=== PATIENT | male | born 1965 | race African-American/Black ===

== ENCOUNTER 2016-05-12 14:29 | Inpatient (IN) | payer OTHER ==
[2016-05-12] MEDS ORDERED: P-EPHED 60MG/TRIPROLIDI 2.5MG TABLET PO PRN (16:27)
[2016-05-12] MEDS ORDERED: ACETAMINOPHEN 325 MG TABLET (FP) PO PRN (16:27)
[2016-05-12] MEDS ORDERED: hydrOXYzine PAMOATE 50 MG CAPSULE (FP) PO PRN (16:27)
[2016-05-12] MEDS ORDERED: NICOTINE 14 MG/24 HOURS TOPICAL PATCH TD PRN (16:27)
[2016-05-12] MEDS ORDERED: MAGNESIUM CITRATE 300 ML BOTTLE PO PRN (16:27)
[2016-05-12] MEDS ORDERED: NICOTINE POLACRILEX 2 MG GUM BUC PRN (16:27)
[2016-05-12] MEDS ORDERED: MAG HYDROX/AL HYDROX/SIMETH 30 ML UNIT-DOSE CUP PO PRN (16:27)
[2016-05-12] MEDS ORDERED: MENTHOL/PHENOL 1 EACH UD MM PRN (16:27)
[2016-05-12] MEDS ORDERED: IBUPROFEN 400 MG TABLET (FP) PO PRN (16:27)
[2016-05-12] MEDS ORDERED: MAGNESIUM HYDROX 2400MG/30ML ORAL SUSPENSION 30 ML CUP PO PRN (16:27)
[2016-05-12] MEDS ORDERED: LOPERAMIDE HCL 2 MG CAPSULE PO PRN (16:27)
[2016-05-12] MEDS ORDERED: guaiFENesin/D-METHORPHAN HB 10 ML UNIT-DOSE CUPS PO PRN (16:27)
[2016-05-12] MEDS ORDERED: diphenhydrAMINE HCL 50 MG CAPSULE PO PRN (16:27)
--- NOTE | 2016-05-12 16:27 | HP ---
[facility] Rehab Assess/Revision - Admission History Admitted to Rehab from: [facility] Date of Admission to Rehab: 05/12/16 - Vital signs Vital Signs: Vital Signs Period Temp Pulse Resp BP Sys/Hernandez Pulse Ox Last 24 Hr 97.8 F-100 F 83 20 109/68 - Findings Detox History & Physical reviewed: Yes Concur with findings: Yes Comments/Additional Findings: TRANSFERRED FROM DETOX TO REHAB ADMISSION PER PROTOCOL
[2016-05-12] MEDS: THIAMINE HCL 100 MG TABLET (FP) PO SCH (21:52)
[2016-05-13] MEDS: PRENATAL VITAMINS W/ FOLIC ACID TABLET (FP) PO SCH (10:38)
--- NOTE | 2016-05-13 12:08 | HP ---
Psychiatrist Admission - Data Date of interview: 05/13/16 Admission source: 6N Identifying data: This is the second 5N inpatient rehabilitation admission for this 49 year old single black male with 24 year old son, who is unemployed and currently homeless. Medical History: hx of left foot fx, 2009, obesity, smokes cigarettes 12 a day. Psychiatric History: Patient denies history of psychiatric treatment. Physical/Sexual Abuse/Trauma History: Patient denies history of sexual, physical and verbal abuse. Vital Signs: Vital Signs - 24 hr 05/12/16 05/12/16 05/13/16 14:48 15:42 00:30 Temperature 100 F H 97.8 F Pulse Rate 83 Respiratory 20 18 Rate Blood Pressure 109/68 05/13/16 05/13/16 03:30 07:01 Temperature 97.5 F L Pulse Rate 60 Respiratory 18 18 Rate Blood Pressure 106/74 Allergies/Adverse Reactions: Allergies Allergy/AdvReac Type Severity Reaction Status Date / Time No Known Allergies Allergy Verified 05/12/16 15:11 Concur with the findings of this exam: Yes - Substance Abuse/Tx History Hx Alcohol Use: Yes (daily 1 pint of rum,bacardi) Hx Substance Use: Yes Substance Use Type: Cocaine ($100 daily.) Hx Substance Use Treatment: Yes - Admission Criteria Previous failed treatment: Yes Poor recovery environment: Yes Comorbidities: Yes Lacks judgement: Yes Mental Status Exam - Mental Status Exam Alert and Oriented to: Time, Place, Person Cognitive Function: Good Patient Appearance: Well Groomed Mood: Hopeful Affect: Appropriate, Mood Congruent Patient Behavior: Appropriate, Cooperative Speech Pattern: Appropriate Voice Loudness: Normal Thought Process: Intact, Goal Oriented Thought Disorder: Not Present Hallucinations: Denies Suicidal Ideation: Denies Homicidal Ideation: Denies Insight/Judgement: Fair Sleep: Fair Appetite: Good Muscle strength/Tone: Normal Gait/Station: Normal Psychiatric Findings - Problem List ([place] 1, 2,3) (1) Alcohol dependence Current Visit: No Status: Chronic (2) Cannabis abuse Current Visit: No Status: Chronic (3) Cocaine dependence Current Visit: No Status: Chronic (4) Nicotine dependence Current Visit: No Status: Chronic
[2016-05-13] MEDS: THIAMINE HCL 100 MG TABLET (FP) PO SCH ×2 (22:10→23:01)
[2016-05-14] MEDS: PRENATAL VITAMINS W/ FOLIC ACID TABLET (FP) PO SCH (09:57)
[2016-05-14] MEDS: THIAMINE HCL 100 MG TABLET (FP) PO SCH (22:37)
[2016-05-15] MEDS: PRENATAL VITAMINS W/ FOLIC ACID TABLET (FP) PO SCH (10:17)
[2016-05-15] MEDS: THIAMINE HCL 100 MG TABLET (FP) PO SCH (21:50)
[2016-05-16] MEDS: PRENATAL VITAMINS W/ FOLIC ACID TABLET (FP) PO SCH (10:14)
[2016-05-16] MEDS: THIAMINE HCL 100 MG TABLET (FP) PO SCH (21:43)
[2016-05-17] MEDS: PRENATAL VITAMINS W/ FOLIC ACID TABLET (FP) PO SCH (10:23)
[2016-05-17] MEDS: THIAMINE HCL 100 MG TABLET (FP) PO SCH (22:10)
[2016-05-18] MEDS: PRENATAL VITAMINS W/ FOLIC ACID TABLET (FP) PO SCH (10:31)
[2016-05-18] MEDS: THIAMINE HCL 100 MG TABLET (FP) PO SCH (21:43)
[2016-05-19] MEDS: PRENATAL VITAMINS W/ FOLIC ACID TABLET (FP) PO SCH (10:19)
[2016-05-19] MEDS: THIAMINE HCL 100 MG TABLET (FP) PO SCH (21:53)
[2016-05-20] MEDS: PRENATAL VITAMINS W/ FOLIC ACID TABLET (FP) PO SCH (12:04)
[2016-05-20] MEDS: THIAMINE HCL 100 MG TABLET (FP) PO SCH (21:50)
[2016-05-21] MEDS: PRENATAL VITAMINS W/ FOLIC ACID TABLET (FP) PO SCH (10:41)
[2016-05-21] MEDS: THIAMINE HCL 100 MG TABLET (FP) PO SCH (21:45)
[2016-05-22] MEDS: PRENATAL VITAMINS W/ FOLIC ACID TABLET (FP) PO SCH (11:28)
[2016-05-22] MEDS: THIAMINE HCL 100 MG TABLET (FP) PO SCH (22:42)
[2016-05-23] MEDS: PRENATAL VITAMINS W/ FOLIC ACID TABLET (FP) PO SCH (10:14)
[2016-05-23] MEDS: THIAMINE HCL 100 MG TABLET (FP) PO SCH (22:16)
[2016-05-24] MEDS: PRENATAL VITAMINS W/ FOLIC ACID TABLET (FP) PO SCH (10:31)
[2016-05-24] MEDS: THIAMINE HCL 100 MG TABLET (FP) PO SCH (21:43)
[2016-05-25] MEDS: PRENATAL VITAMINS W/ FOLIC ACID TABLET (FP) PO SCH (11:00)
[2016-05-25] MEDS: THIAMINE HCL 100 MG TABLET (FP) PO SCH (21:59)
[2016-05-26] MEDS: PRENATAL VITAMINS W/ FOLIC ACID TABLET (FP) PO SCH (10:07)
[2016-05-26] MEDS: THIAMINE HCL 100 MG TABLET (FP) PO SCH (21:42)
[2016-05-27] MEDS: PRENATAL VITAMINS W/ FOLIC ACID TABLET (FP) PO SCH (11:00)
[2016-05-27] MEDS: THIAMINE HCL 100 MG TABLET (FP) PO SCH (22:07)
[2016-05-28] MEDS: PRENATAL VITAMINS W/ FOLIC ACID TABLET (FP) PO SCH (10:25)
[2016-05-28] MEDS: THIAMINE HCL 100 MG TABLET (FP) PO SCH (21:37)
[2016-05-29] MEDS: PRENATAL VITAMINS W/ FOLIC ACID TABLET (FP) PO SCH (10:04)
[2016-05-29] MEDS: THIAMINE HCL 100 MG TABLET (FP) PO SCH (21:47)
[2016-05-30] MEDS: PRENATAL VITAMINS W/ FOLIC ACID TABLET (FP) PO SCH (09:38)
[2016-05-30] MEDS: THIAMINE HCL 100 MG TABLET (FP) PO SCH (21:52)
[2016-05-31 06:42] VITALS: PULSE 69
[2016-05-31] MEDS: PRENATAL VITAMINS W/ FOLIC ACID TABLET (FP) PO SCH (09:57)
[2016-05-31] MEDS: THIAMINE HCL 100 MG TABLET (FP) PO SCH (22:13)
[2016-06-01 07:02] VITALS: BP 112/64; TEMP 97.5
--- NOTE | 2016-06-01 07:59 | PN ---
Psychiatric Progress Note Vital Signs: Vital Signs Period Temp Pulse Resp BP Sys/Hernandez Pulse Ox Last 24 Hr 97.5 F 69 18-20 112/64 Date of Session: 06/01/16 Chief Complaint:: discharge visit HPI: obesity. ROS: Patient has addressed alcohol, cocaine, nicotine dependence, cannabis abuse. Current Medications: Active Medications Generic Name Dose Route Start Last Admin Trade Name Freq PRN Reason Stop Dose Admin Acetaminophen 650 mg 05/12/16 16:27 Tylenol - PO Q4H PRN FEVER OR PAIN Al Hydroxide/Mg Hydroxide 30 ml 05/12/16 16:27 Mylanta Oral Suspension - PO Q6H PRN DYSPEPSIA Diphenhydramine HCl 50 mg 05/12/16 16:27 Benadryl - PO HSMR1 PRN FOR ITCHING Eucalyptus/Menthol/Phenol/Sorbitol 1 each 05/12/16 16:27 05/25/16 22:12 Cepastat Lozenge - MM 1 each Q4H PRN Administration SORE THROAT Guaifenesin 10 ml 05/12/16 16:27 Robitussin Dm - PO Q6H PRN COUGH Hydroxyzine Pamoate 50 mg 05/12/16 16:27 Vistaril - PO Q4H PRN AGITATION Ibuprofen 400 mg 05/12/16 16:27 Motrin - PO Q6H PRN PAIN Loperamide HCl 4 mg 05/12/16 16:27 Imodium - PO Q6H PRN DIARRHEA Magnesium Hydroxide 30 ml 05/12/16 16:27 Milk Of Magnesia - PO DAILY PRN CONSTIPATION Nicotine 14 mg 05/12/16 16:27 Nicoderm Patch - TD DAILY PRN WITHDRAWAL(CONT SUBST) Nicotine Polacrilex 2 mg 05/12/16 16:27 Nicorette Gum - BUC Q2H PRN NICOTINE REPLACEMENT RX Multivit/Folic Acid/Iron 1 tab 05/13/16 10:00 05/31/16 09:57 Vitamins (Sjr) - PO Not Given DAILY JOSIE Pseudoephedrine/Triprolidine 1 combo 05/12/16 16:27 Actifed - PO TID PRN NASAL CONGESTION Thiamine HCl 100 mg 05/12/16 22:00 05/31/16 22:13 Vitamin B1 - PO Not Given HS JOSIE Current Side Effect: No Lab tests ordered: No Lab tests reviewed: Yes Provider note:: Patient has complted today his treatment and met his goals, shruthil continue to address his issues at the nxt level of care.Patient identified positive affirmations about himself and identifying the consequences of his self abuse, he undersands the negative impact of addiction over major life jac. Patient was encouraged to utilize all supports available to prevent relapses. He is stable for discharge today. Total face to face time:: 20 Mental Status Exam - Mental Status Exam Alert and Oriented to: Time, Place, Person Cognitive Function: Grossly Intact Patient Appearance: Well Groomed Mood: Hopeful Affect: Appropriate, Mood Congruent Patient Behavior: Appropriate, Cooperative Speech Pattern: Clear, Appropriate Voice Loudness: Normal Thought Process: Intact, Goal Oriented Thought Disorder: Not Present Hallucinations: None, Denies Suicidal Ideation: None, Denies Homicidal Ideation: None Insight/Judgement: Fair Sleep: Fair Appetite: Fair Muscle strength/Tone: Normal, Moderate Hypotonicity Psychiatric Treatment Plan - Problem List (1) Alcohol dependence Current Visit: No (2) Cannabis abuse Current Visit: No (3) Cocaine dependence Current Visit: No (4) Nicotine dependence Current Visit: No
== END 2016-06-01 07:40 | disposition home or self-care (01) | DRG 772 ==
LOC: YASAS 14:29 → Y5N 14:30
PROVIDERS: ADMIT Psychiatry & Neurology Psychiatry; ATTEND Psychiatry & Neurology Psychiatry
PROC: HZ42ZZZ Group Counseling for Substance Abuse Treatment, Cognitive-Behavioral (ICD-10-PCS; principal; 2016-05-12)
DX: F10.20 Alcohol dependence, uncomplicated (principal); F14.20 Cocaine dependence, uncomplicated; F12.10 Cannabis abuse, uncomplicated; F17.210 Nicotine dependence, cigarettes, uncomplicated; E66.9 Obesity, unspecified; Z68.39 Body mass index [BMI] 39.0-39.9, adult; Z59.0 Homelessness

== ENCOUNTER 2016-07-06 12:39 | Inpatient (IN) | payer OTHER ==
[2016-07-06 13:51] VITALS: BMI 41.8
--- NOTE | 2016-07-06 15:27 | HP ---
CIWA Score - CIWA Score Nausea/Vomitin Muscle Tremors: 3 Anxiety: 3 Agitation: 3 Paroxysmal Sweats: 2 Orientation: 0-Oriented Tacttile Disturbances: 2-Mild Itch/Numbness/Burn Auditory Disturbances: 2-Mild Harshness/Frighten Visual Disturbances: 2-Mild Sensitivity Headache: 2-Mild CIWA-Ar Total Score: 22 Admission ROS BHS - HPI Chief Complaint: i need help to stop drinking alcohol Allergies/Adverse Reactions: Allergies Allergy/AdvReac Type Severity Reaction Status Date / Time No Known Allergies Allergy Verified 07/06/16 15:11 History of Present Illness: this 51 years old male with alcohol dependence,withdrawal symptom,last detox [facility] 04/29/16 to 05/02/16 multiple admissions to detox and rehab syncope nicotine dependence longest period of sobriety 22 months - Ebola screening Have you traveled outside of the country in the last 21 days: No Have you had contact with anyone from an Ebola affected area: No Have you been sick,other than usual withdrawal symptoms: No Do you have a fever: No - Review of Systems Constitutional: Loss of Appetite, Malaise, Night Sweats, Changes in sleep, Weakness EENT: reports: Nose Congestion Respiratory: reports: No Symptoms reported Cardiac: reports: No Symptoms Reported GI: reports: Nausea, Vomiting, Abdominal cramping : reports: No Symptoms Reported Integumentary: reports: Dryness Neuro: reports: Headache, Tremors Endocrine: reports: No Symptoms Reported Hematology: reports: No Symptoms Reported Psychiatric: reports: Anxious Other Systems: Reviewed and Negative Patient History - Patient Medical History Hx Anemia: No Hx Asthma: No Hx Chronic Obstructive Pulmonary Disease (COPD): No Hx Cancer: No Hx Cardiac Disorders: No Hx Congestive Heart Failure: No Hx Hypertension: No Hx Hypercholesterolemia: No Hx Pacemaker: No HX Cerebrovascular Accident: No Hx Seizures: No Hx Dementia: No Hx Diabetes: No Hx Gastrointestinal Disorders: No Hx Liver Disease: No Hx Genitourinary Disorders: No Hx Sexually Transmitted Disorders: No Hx Renal Disease (ESRD): No Hx Thyroid Disease: No Hx Human Immunodeficiency Virus (HIV): No (last 02/12 negative) Hx Hepatitis C: No Hx Depression: No Hx Suicide Attempt: No Hx Bipolar Disorder: No Hx Schizophrenia: No Other Medical History: no suicidal,no homicidal - Patient Surgical History Past Surgical History: No Hx Neurologic Surgery: No Hx Cataract Extraction: No Hx Cardiac Surgery: No Hx Lung Surgery: No Hx Breast Surgery: No Hx Breast Biopsy: No Hx Abdominal Surgery: No Hx Appendectomy: No Hx Cholecystectomy: No Hx Genitourinary Surgery: No Hx Section: No Hx Orthopedic Surgery: No Anesthesia Reaction: No - PPD History Previous Implant?: Yes Documented Results: Negative w/proof Date: 05/10/16 Results: 0 mm PPD to be Administered?: No - Smoking Cessation Smoking history: Current every day smoker Have you smoked in the past 12 months: Yes Aproximately how many cigarettes per day: 12 Cigars Per Day: 0 Hx Chewing Tobacco Use: No Initiated information on smoking cessation: Yes 'Breaking Loose' booklet given: 07/06/16 - Substance & Tx. History Hx Alcohol Use: Yes Hx Substance Use: Yes Substance Use Type: Alcohol, Cocaine Hx Substance Use Treatment: Yes ([facility] 04/29/16 to 05/02/16) - Substances Abused Alcohol Route: Oral Frequency: Daily Amount used: 7-8 12 oz cans beer Age of first use: 17 Date of Last Use: 07/06/16 Crack Route: Smoking Frequency: Daily Amount used: 2-3 grams Age of first use: 28 Date of Last Use: 07/04/16 Family Disease History - Family Disease History Family Disease History: Other: Father (alcoholism- ) Admission Physical Exam S - Vital Signs Vital Signs: Vital Signs - 24 hr 07/06/16 13:47 Temperature 97.5 F L Pulse Rate 88 Respiratory 18 Rate Blood Pressure 114/69 - Physical General Appearance: Yes: Moderate Distress, Tremorous, Irritable, Anxious HEENTM: Yes: Nasal Congestion Respiratory: Yes: Lungs Clear Neck: Yes: Within Normal Limits Breast: Yes: Within Normal Limits Cardiology: Yes: Within Normal Limits, Regular Rhythm, Regular Rate, S1, S2 Abdominal: Yes: Normal Bowel Sounds, Non Tender, Flat, Soft Genitourinary: Yes: Within Normal Limits Back: Yes: Muscle Spasm Musculoskeletal: Yes: Back pain, Muscle Pain Extremities: Yes: Tremors Neurological: Yes: staff editor II-XII NML intact, Alert, Motor Strength 5/5 Integumentary: Yes: Dry Lymphatic: Yes: Within Normal Limits - Diagnostic (1) Alcohol dependence with uncomplicated withdrawal Current Visit: No Status: Chronic (2) Nicotine dependence Current Visit: No Status: Chronic (3) Obesity Current Visit: No Status: Chronic Qualifiers: Obesity type: due to excess calories (4) Sleep apnea Current Visit: No Status: Chronic Qualifiers: Sleep apnea type: other type Qualified Code(s): G47.39 - Other sleep apnea (5) Syncope Current Visit: Yes Status: Acute Cleared for Admission [facility] - Detox or Rehab [facility] Level of Care: Medically Managed Detox Regimen/Protocol: Librium S Breath Alcohol Content Breath Alcohol Content: 0.027 Urine Drug Screen - Results Drug Screen Negative: Yes
[2016-07-06] MEDS ORDERED: MAG HYDROX/AL HYDROX/SIMETH 30 ML UNIT-DOSE CUP PO PRN (15:34)
[2016-07-06] MEDS ORDERED: MAGNESIUM CITRATE 300 ML BOTTLE PO PRN (15:34)
[2016-07-06] MEDS ORDERED: MAGNESIUM HYDROX 2400MG/30ML ORAL SUSPENSION 30 ML CUP PO PRN (15:34)
[2016-07-06] MEDS ORDERED: chlordiazePOXIDE HCL 25 MG CAPSULE PO PRN (15:34)
[2016-07-06] MEDS ORDERED: IBUPROFEN 400 MG TABLET (FP) PO PRN (15:34)
[2016-07-06] MEDS ORDERED: P-EPHED 60MG/TRIPROLIDI 2.5MG TABLET PO PRN (15:34)
[2016-07-06] MEDS ORDERED: hydrOXYzine PAMOATE 50 MG CAPSULE (FP) PO PRN (15:34)
[2016-07-06] MEDS ORDERED: guaiFENesin/D-METHORPHAN HB 10 ML UNIT-DOSE CUPS PO PRN (15:34)
[2016-07-06] MEDS ORDERED: ACETAMINOPHEN 325 MG TABLET (FP) PO PRN (15:34)
[2016-07-06] MEDS ORDERED: MENTHOL/PHENOL 1 EACH UD MM PRN (15:34)
[2016-07-06] MEDS ORDERED: LOPERAMIDE HCL 2 MG CAPSULE PO PRN (15:34)
[2016-07-06] MEDS ORDERED: chlordiazePOXIDE HCL 25 MG CAPSULE PO ONE (15:43)
[2016-07-06] MEDS: chlordiazePOXIDE HCL 25 MG CAPSULE PO SCH ×2 (17:37→22:27)
[2016-07-06 20:20] LABS: URINE APPEARANCE CLEAR; URINE BILIRUBIN NEGATIVE (NEGATIVE); URINE BLOOD NEGATIVE (NEGATIVE); URINE COLOR YELLOW; URINE GLUCOSE (UA) NEGATIVE (NEGATIVE); URINE KETONE NEGATIVE (NEGATIVE); URINE NITRITE NEGATIVE (NEGATIVE); URINE PROTEIN NEGATIVE (NEGATIVE); URINE UROBILINOGEN NEGATIVE E.U./dl (0.2-1.0)
[2016-07-06 20:23] LABS: URINE LEUK ESTERASE TRACE (NEGATIVE)
[2016-07-06 20:34] LABS: URINE MUCUS RARE; URINE RBC 1 /hpf (0-3); URINE WBC 8 /hpf (3-5)
[2016-07-06] MEDS ORDERED: diphenhydrAMINE HCL 50 MG CAPSULE PO PRN (22:00)
[2016-07-06] MEDS: THIAMINE HCL 100 MG TABLET (FP) PO SCH (22:27)
[2016-07-07] MEDS: chlordiazePOXIDE HCL 25 MG CAPSULE PO SCH ×4 (05:34→22:36)
[2016-07-07 10:32] LABS: MCH 29.2 pg (25.7-33.7); MCHC 32.7 g/dl (32.0-35.9); MEAN CELL VOLUME 89.1 fl (80-96); MEAN PLT VOLUME 11.3 fl (7.5-11.1); PLATELET COUNT 172 K/MM3 (134-434); RDW 14.4 % (11.9-15.9); WHITE BLOOD COUNT 8.6 K/mm3 (4.0-10.0)
[2016-07-07] MEDS: PRENATAL VITAMINS W/ FOLIC ACID TABLET (FP) PO SCH (10:33)
[2016-07-07 10:59] LABS: ALBUMIN 3.7 g/dl (3.4-5.0); ALK PHOS 51 U/L (45-117); ANION GAP 11 (8-16); BILIRUBIN,TOTAL 0.3 mg/dL (0.2-1.0); CALCIUM 9.2 mg/dL (8.5-10.1); CO2 23 mmol/L (21-32); CREATININE 0.7 mg/dL (0.7-1.3); GLUCOSE,RANDOM 100 mg/dL (74-106); SGOT/AST 22 U/L (15-37); SGPT/ALT 66 U/L (12-78); TOT PROT 7.1 g/dl (6.4-8.2)
--- NOTE | 2016-07-07 13:33 | EKG ---
Test Reason : Blood Pressure : / mmHG Vent. Rate : 067 BPM Atrial Rate : 067 BPM P-R Int : 148 ms QRS Dur : 084 ms QT Int : 428 ms P-R-T Axes : 067 052 049 degrees QTc Int : 452 ms NORMAL SINUS RHYTHM NORMAL ECG NO PREVIOUS ECGS AVAILABLE Confirmed by ROHITH CAMPOS, MARTA ([id number]) on 07/07/2016 1:33:50 PM Referred By: Confirmed By:MARTA NEWBERRY MD
--- NOTE | 2016-07-07 17:57 | PN ---
S CIWA - CIWA Score Nausea/Vomitin-Mild Nausea/No Vomiting Muscle Tremors: 4-Moderate,w/Arms Extend Anxiety: 4-Mod. Anxious/Guarded Agitation: 3 Paroxysmal Sweats: 3 Orientation: 0-Oriented Tacttile Disturbances: 0-None Auditory Disturbances: 0-None Visual Disturbances: 0-None Headache: 0-None Present CIWA-Ar Total Score: 15 BHS Progress Note (SOAP) Subjective: SWEATING,ANXIETY,TREMORS,INTERRUPTED SLEEP,RESTLESS. Objective: 07/07/16 17:56 Vital Signs - 8 hr 07/07/16 07/07/16 13:23 17:32 Temperature 97.2 F L 98.1 F Pulse Rate 82 66 Respiratory 20 18 Rate Blood Pressure 141/82 91/61 Laboratory Tests 07/06/16 07/07/16 07/07/16 19:45 06:00 06:00 WBC 8.6 D RBC 4.42 Hgb 12.9 Hct 39.4 MCV 89.1 MCHC 32.7 RDW 14.4 Plt Count 172 MPV 11.3 H Sodium 140 Potassium 4.2 Chloride 106 Carbon Dioxide 23 Anion Gap 11 BUN 12 D Creatinine 0.7 D Creat Clearance w eGFR > 60 Random Glucose 100 Calcium 9.2 Total Bilirubin 0.3 D AST 22 D ALT 66 D Alkaline Phosphatase 51 Total Protein 7.1 Albumin 3.7 Urine Color Yellow Urine Appearance Clear Urine pH 6.0 Ur Specific [place] 1.018 Urine Protein Negative Urine Glucose (UA) Negative Urine Ketones Negative Urine Blood Negative Urine Nitrite Negative Urine Bilirubin Negative Urine Urobilinogen Negative Ur Leukocyte Esterase Trace H D Urine RBC 1 Urine WBC 8 Ur Epithelial Cells Rare Urine Mucus Rare RPR Titer 07/07/16 06:00 WBC RBC Hgb Hct MCV MCHC RDW Plt Count MPV Sodium Potassium Chloride Carbon Dioxide Anion Gap BUN Creatinine Creat Clearance w eGFR Random Glucose Calcium Total Bilirubin AST ALT Alkaline Phosphatase Total Protein Albumin Urine Color Urine Appearance Urine pH Ur Specific [place] Urine Protein Urine Glucose (UA) Urine Ketones Urine Blood Urine Nitrite Urine Bilirubin Urine Urobilinogen Ur Leukocyte Esterase Urine RBC Urine WBC Ur Epithelial Cells Urine Mucus RPR Titer Nonreactive LABS NOTED Assessment: 07/07/16 17:56 WITHDRAWAL SX. Plan: CONTINUE DETOX
[2016-07-07] MEDS: THIAMINE HCL 100 MG TABLET (FP) PO SCH (22:37)
[2016-07-08] MEDS: chlordiazePOXIDE HCL 25 MG CAPSULE PO SCH ×2 (05:40→10:34)
[2016-07-08] MEDS: PRENATAL VITAMINS W/ FOLIC ACID TABLET (FP) PO SCH (10:34)
--- NOTE | 2016-07-08 13:33 | PN ---
S CIWA - CIWA Score Nausea/Vomitin-No Nausea/No Vomiting Muscle Tremors: 3 Anxiety: 3 Agitation: 4-Moderately Restless Paroxysmal Sweats: 3 Orientation: 0-Oriented Tacttile Disturbances: 1-Very Mild Itch/Numbness Auditory Disturbances: 0-None Visual Disturbances: 0-None Headache: 0-None Present CIWA-Ar Total Score: 14 BHS Progress Note (SOAP) Subjective: SWEATING,INTERRUPTED SLEEP,ANXIETY,TREMORS,RESTLESS Objective: 07/08/16 13:32 Vital Signs - 8 hr 07/08/16 07/08/16 07:01 10:11 Temperature 97.8 F 96.2 F L Pulse Rate 69 82 Respiratory 18 18 Rate Blood Pressure 119/84 115/82 Laboratory Tests 07/06/16 07/07/16 07/07/16 19:45 06:00 06:00 WBC 8.6 D RBC 4.42 Hgb 12.9 Hct 39.4 MCV 89.1 MCHC 32.7 RDW 14.4 Plt Count 172 MPV 11.3 H Sodium 140 Potassium 4.2 Chloride 106 Carbon Dioxide 23 Anion Gap 11 BUN 12 D Creatinine 0.7 D Creat Clearance w eGFR > 60 Random Glucose 100 Calcium 9.2 Total Bilirubin 0.3 D AST 22 D ALT 66 D Alkaline Phosphatase 51 Total Protein 7.1 Albumin 3.7 Urine Color Yellow Urine Appearance Clear Urine pH 6.0 Ur Specific [place] 1.018 Urine Protein Negative Urine Glucose (UA) Negative Urine Ketones Negative Urine Blood Negative Urine Nitrite Negative Urine Bilirubin Negative Urine Urobilinogen Negative Ur Leukocyte Esterase Trace H D Urine RBC 1 Urine WBC 8 Ur Epithelial Cells Rare Urine Mucus Rare RPR Titer 07/07/16 06:00 WBC RBC Hgb Hct MCV MCHC RDW Plt Count MPV Sodium Potassium Chloride Carbon Dioxide Anion Gap BUN Creatinine Creat Clearance w eGFR Random Glucose Calcium Total Bilirubin AST ALT Alkaline Phosphatase Total Protein Albumin Urine Color Urine Appearance Urine pH Ur Specific [place] Urine Protein Urine Glucose (UA) Urine Ketones Urine Blood Urine Nitrite Urine Bilirubin Urine Urobilinogen Ur Leukocyte Esterase Urine RBC Urine WBC Ur Epithelial Cells Urine Mucus RPR Titer Nonreactive LABS NOTED Assessment: 07/08/16 13:32 WITHDRAWAL SX. Plan: CONTINUE DETOX
[2016-07-08] MEDS: chlordiazePOXIDE 5 MG CAPSULE PO SCH ×2 (18:18→22:27)
[2016-07-08] MEDS: THIAMINE HCL 100 MG TABLET (FP) PO SCH (22:27)
[2016-07-09] MEDS: chlordiazePOXIDE 5 MG CAPSULE PO SCH ×2 (05:23→10:15)
[2016-07-09] MEDS: PRENATAL VITAMINS W/ FOLIC ACID TABLET (FP) PO SCH (10:15)
--- NOTE | 2016-07-09 10:41 | PN ---
BHS Progress Note (SOAP) Subjective: Sweating,interrupted sleep,restless Objective: 07/09/16 10:39 Vital Signs - 8 hr 07/09/16 07/09/16 07/09/16 03:30 06:25 10:08 Temperature 97.7 F 96.8 F L Pulse Rate 82 101 H Respiratory 18 18 18 Rate Blood Pressure 119/86 136/82 Laboratory Tests 07/06/16 07/07/16 07/07/16 19:45 06:00 06:00 WBC 8.6 D RBC 4.42 Hgb 12.9 Hct 39.4 MCV 89.1 MCHC 32.7 RDW 14.4 Plt Count 172 MPV 11.3 H Sodium 140 Potassium 4.2 Chloride 106 Carbon Dioxide 23 Anion Gap 11 BUN 12 D Creatinine 0.7 D Creat Clearance w eGFR > 60 Random Glucose 100 Calcium 9.2 Total Bilirubin 0.3 D AST 22 D ALT 66 D Alkaline Phosphatase 51 Total Protein 7.1 Albumin 3.7 Urine Color Yellow Urine Appearance Clear Urine pH 6.0 Ur Specific [place] 1.018 Urine Protein Negative Urine Glucose (UA) Negative Urine Ketones Negative Urine Blood Negative Urine Nitrite Negative Urine Bilirubin Negative Urine Urobilinogen Negative Ur Leukocyte Esterase Trace H D Urine RBC 1 Urine WBC 8 Ur Epithelial Cells Rare Urine Mucus Rare RPR Titer 07/07/16 06:00 WBC RBC Hgb Hct MCV MCHC RDW Plt Count MPV Sodium Potassium Chloride Carbon Dioxide Anion Gap BUN Creatinine Creat Clearance w eGFR Random Glucose Calcium Total Bilirubin AST ALT Alkaline Phosphatase Total Protein Albumin Urine Color Urine Appearance Urine pH Ur Specific [place] Urine Protein Urine Glucose (UA) Urine Ketones Urine Blood Urine Nitrite Urine Bilirubin Urine Urobilinogen Ur Leukocyte Esterase Urine RBC Urine WBC Ur Epithelial Cells Urine Mucus RPR Titer Nonreactive labs noted Assessment: 07/09/16 10:40 withdrawal sx. Plan: continue detox
[2016-07-09] MEDS: chlordiazePOXIDE HCL 10 MG CAPSULE PO SCH ×2 (17:38→22:26)
[2016-07-09] MEDS: THIAMINE HCL 100 MG TABLET (FP) PO SCH (22:26)
[2016-07-10] MEDS: chlordiazePOXIDE HCL 10 MG CAPSULE PO SCH ×2 (06:07→10:39)
[2016-07-10 09:51] VITALS: BP 123/83; PULSE 102; TEMP 97.7
--- NOTE | 2016-07-10 10:23 | DS ---
[facility] Detox Discharge Summary Admission Date: 07/06/16 Discharge Date: 07/10/16 - History Present History: Alcohol Dependence Pertinent Past History: Morbid Obesity Sleep Apnea - Physical Exam Results Vital Signs: Vital Signs Temperature 97.7 F 07/10/16 09:50 Pulse Rate 102 H 07/10/16 09:50 Respiratory Rate 20 07/10/16 09:50 Blood Pressure 123/83 07/10/16 09:50 O2 Sat by Pulse Oximetry (%) Laboratory Last Values WBC 8.6 K/mm3 (4.0-10.0) D 07/07/16 06:00 RBC 4.42 M/mm3 (4.00-5.60) 07/07/16 06:00 Hgb 12.9 GM/dL (11.7-16.9) 07/07/16 06:00 Hct 39.4 % (35.4-49) 07/07/16 06:00 MCV 89.1 fl (80-96) 07/07/16 06:00 MCHC 32.7 g/dl (32.0-35.9) 07/07/16 06:00 RDW 14.4 % (11.9-15.9) 07/07/16 06:00 Plt Count 172 K/MM3 (134-434) 07/07/16 06:00 MPV 11.3 fl (7.5-11.1) H 07/07/16 06:00 Sodium 140 mmol/L (136-145) 07/07/16 06:00 Potassium 4.2 mmol/L (3.5-5.1) 07/07/16 06:00 Chloride 106 mmol/L (98-107) 07/07/16 06:00 Carbon Dioxide 23 mmol/L (21-32) 07/07/16 06:00 Anion Gap 11 (8-16) 07/07/16 06:00 BUN 12 mg/dL (7-18) D 07/07/16 06:00 Creatinine 0.7 mg/dL (0.7-1.3) D 07/07/16 06:00 Creat Clearance w eGFR > 60 (>60) 07/07/16 06:00 Random Glucose 100 mg/dL (74-106) 07/07/16 06:00 Calcium 9.2 mg/dL (8.5-10.1) 07/07/16 06:00 Total Bilirubin 0.3 mg/dL (0.2-1.0) D 07/07/16 06:00 AST 22 U/L (15-37) D 07/07/16 06:00 ALT 66 U/L (12-78) D 07/07/16 06:00 Alkaline Phosphatase 51 U/L (45-117) 07/07/16 06:00 Total Protein 7.1 g/dl (6.4-8.2) 07/07/16 06:00 Albumin 3.7 g/dl (3.4-5.0) 07/07/16 06:00 Urine Color Yellow 07/06/16 19:45 Urine Appearance Clear 07/06/16 19:45 Urine pH 6.0 (5.0-8.0) 07/06/16 19:45 Ur Specific [place] 1.018 (1.001-1.035) 07/06/16 19:45 Urine Protein Negative (NEGATIVE) 07/06/16 19:45 Urine Glucose (UA) Negative (NEGATIVE) 07/06/16 19:45 Urine Ketones Negative (NEGATIVE) 07/06/16 19:45 Urine Blood Negative (NEGATIVE) 07/06/16 19:45 Urine Nitrite Negative (NEGATIVE) 07/06/16 19:45 Urine Bilirubin Negative (NEGATIVE) 07/06/16 19:45 Urine Urobilinogen Negative E.U./dl (0.2-1.0) 07/06/16 19:45 Ur Leukocyte Esterase Trace (NEGATIVE) H D 07/06/16 19:45 Urine RBC 1 /hpf (0-3) 07/06/16 19:45 Urine WBC 8 /hpf (3-5) 07/06/16 19:45 Ur Epithelial Cells Rare /hpf (FEW) 07/06/16 19:45 Urine Mucus Rare 07/06/16 19:45 RPR Titer Nonreactive (NONREACTIVE) 07/07/16 06:00 labs noted Pertinent Admission Physical Exam Findings: Withdrawal Symptoms - Treatment Hospital Course: Detox Protocol Followed, Detoxed Safely, Responded well, Discharged Condition Good - Medication Discharge Medications: Ambulatory Orders NK [No Known Home Medication] 05/03/15 - Diagnosis (1) Alcohol dependence with uncomplicated withdrawal Current Visit: No Status: Chronic (2) Cigarette nicotine dependence Current Visit: No Status: Chronic Qualifiers: Substance use status: uncomplicated Qualified Code(s): F17.210 - Nicotine dependence, cigarettes, uncomplicated (3) Cocaine dependence Current Visit: No Status: Chronic (4) Nicotine dependence Current Visit: No Status: Chronic (5) Sleep apnea Current Visit: No Status: Chronic Qualifiers: Sleep apnea type: other type Qualified Code(s): G47.39 - Other sleep apnea (6) Morbid obesity Current Visit: Yes Status: Chronic - AMA Did Patient Leave Against Medical Advice: No
[2016-07-10] MEDS: PRENATAL VITAMINS W/ FOLIC ACID TABLET (FP) PO SCH (10:39)
== END 2016-07-10 14:24 | disposition other institution (70) | DRG 774 ==
LOC: YASAS 12:39 → Y3N 15:27
PROVIDERS: ADMIT Internal Medicine; ATTEND Internal Medicine
PROC: HZ2ZZZZ Detoxification Services for Substance Abuse Treatment (ICD-10-PCS; principal; 2016-07-10)
DX: F10.230 Alcohol dependence with withdrawal, uncomplicated (principal); F14.20 Cocaine dependence, uncomplicated; F17.210 Nicotine dependence, cigarettes, uncomplicated; G47.39 Other sleep apnea; E66.01 Morbid (severe) obesity due to excess calories; Z68.41 Body mass index [BMI] 40.0-44.9, adult; R55 Syncope and collapse; Z59.0 Homelessness
CPT/HCPCS: 36415; 80053; 81003; 81015; 85027; 86593; 93005; 93010

== ENCOUNTER 2016-07-10 14:35 | Inpatient (IN) | payer OTHER ==
[2016-07-10] MEDS ORDERED: MAG HYDROX/AL HYDROX/SIMETH 30 ML UNIT-DOSE CUP PO PRN (15:48)
[2016-07-10] MEDS ORDERED: MENTHOL/PHENOL 1 EACH UD MM PRN (15:48)
[2016-07-10] MEDS ORDERED: guaiFENesin/D-METHORPHAN HB 10 ML UNIT-DOSE CUPS PO PRN (15:48)
[2016-07-10] MEDS ORDERED: IBUPROFEN 400 MG TABLET (FP) PO PRN (15:48)
[2016-07-10] MEDS ORDERED: ACETAMINOPHEN 325 MG TABLET (FP) PO PRN (15:48)
[2016-07-10] MEDS ORDERED: diphenhydrAMINE HCL 50 MG CAPSULE PO PRN (15:48)
[2016-07-10] MEDS ORDERED: MAGNESIUM CITRATE 300 ML BOTTLE PO PRN (15:48)
[2016-07-10] MEDS ORDERED: P-EPHED 60MG/TRIPROLIDI 2.5MG TABLET PO PRN (15:48)
[2016-07-10] MEDS ORDERED: NICOTINE POLACRILEX 2 MG GUM BUC PRN (15:48)
[2016-07-10] MEDS ORDERED: MAGNESIUM HYDROX 2400MG/30ML ORAL SUSPENSION 30 ML CUP PO PRN (15:48)
[2016-07-10] MEDS ORDERED: LOPERAMIDE HCL 2 MG CAPSULE PO PRN (15:48)
--- NOTE | 2016-07-10 15:49 | HP ---
[facility] Rehab Assess/Revision - Admission History Admitted to Rehab from: [facility] [place] Date of Admission to Rehab: 07/10/16 - Vital signs Vital Signs: Vital Signs Period Temp Pulse Resp BP Sys/Hernandez Pulse Ox Last 24 Hr 97.9 F 100 18 128/74 - Findings Detox History & Physical reviewed: Yes Concur with findings: Yes
[2016-07-10] MEDS: THIAMINE HCL 100 MG TABLET (FP) PO SCH (21:19)
[2016-07-11] MEDS: PRENATAL VITAMINS W/ FOLIC ACID TABLET (FP) PO SCH (10:03)
[2016-07-11] MEDS: THIAMINE HCL 100 MG TABLET (FP) PO SCH (22:49)
[2016-07-12] MEDS: PRENATAL VITAMINS W/ FOLIC ACID TABLET (FP) PO SCH (10:14)
--- NOTE | 2016-07-12 13:22 | HP ---
Psychiatrist Admission - Data Date of interview: 07/12/16 Admission source: 3N Identifying data: This is the third 5N inpatient rehabilitation admission for this 51 year old single black male with 24 year old son, who is unemployed supported by [employer]. Medical History: history of left foot fx, 2010, obesity, smokes cigarettes 12 daily. Psychiatric History: Patient denies history of psychiatric treatment. Physical/Sexual Abuse/Trauma History: Patient denies history of sexual, physical and verbal abuse. Vital Signs: Vital Signs - 24 hr 07/12/16 07/12/16 07/12/16 00:30 03:30 06:50 Temperature 98.5 F Pulse Rate 89 Respiratory 18 18 18 Rate Blood Pressure 108/72 Allergies/Adverse Reactions: Allergies Allergy/AdvReac Type Severity Reaction Status Date / Time No Known Allergies Allergy Verified 07/10/16 14:41 Date of last physical exam: 07/06/16 Concur with the findings of this exam: Yes - Substance Abuse/Tx History Hx Alcohol Use: Yes ( 7-8 12 oz cans beer) Hx Substance Use: No Substance Use Type: Cocaine (2-3 gr daily) Hx Substance Use Treatment: Yes (several [facility] reha/detox) - Admission Criteria Previous failed treatment: Yes Poor recovery environment: Yes Comorbidities: No Lacks judgement: Yes Mental Status Exam - Mental Status Exam Alert and Oriented to: Time, Place, Person Cognitive Function: Grossly Intact Patient Appearance: Well Groomed Mood: Hopeful Affect: Appropriate, Mood Congruent Patient Behavior: Appropriate, Cooperative Speech Pattern: Clear, Appropriate Voice Loudness: Normal Thought Process: Intact, Goal Oriented Thought Disorder: Not Present Hallucinations: Denies Suicidal Ideation: Denies Homicidal Ideation: Denies Insight/Judgement: Fair Sleep: Fair Appetite: Good Muscle strength/Tone: Normal Gait/Station: Normal Psychiatric Findings - Problem List ([place] 1, 2,3) (1) Alcohol dependence Current Visit: No Status: Chronic (2) Cigarette nicotine dependence Current Visit: No Status: Chronic (3) Cocaine dependence Current Visit: No Status: Chronic - Initial Treatment Plan Initial Treatment Plan: will monitor progress as needed.
[2016-07-12] MEDS: THIAMINE HCL 100 MG TABLET (FP) PO SCH (21:54)
[2016-07-13] MEDS: PRENATAL VITAMINS W/ FOLIC ACID TABLET (FP) PO SCH (10:38)
[2016-07-13] MEDS: THIAMINE HCL 100 MG TABLET (FP) PO SCH (21:38)
[2016-07-14] MEDS: PRENATAL VITAMINS W/ FOLIC ACID TABLET (FP) PO SCH (09:58)
--- NOTE | 2016-07-27 15:32 | PN ---
Psychiatric Progress Note Vital Signs: Vital Signs Period Temp Pulse Resp BP Sys/Hernandez Pulse Ox Last 24 Hr 97.6 F 64 18-18 107/67 Date of Session: 07/27/16 Chief Complaint:: discharge visit HPI: Patient is addressing alcohol, cocaine and nicotine dependence. ROS: WNL Current Medications: Active Medications Generic Name Dose Route Start Last Admin Trade Name Freq PRN Reason Stop Dose Admin Acetaminophen 650 mg 07/10/16 15:48 Tylenol - PO Q4H PRN FEVER OR PAIN Al Hydroxide/Mg Hydroxide 30 ml 07/10/16 15:48 Mylanta Oral Suspension - PO Q6H PRN DYSPEPSIA Diphenhydramine HCl 50 mg 07/10/16 15:48 Benadryl - PO HSMR1 PRN FOR ITCHING Eucalyptus/Menthol/Phenol/Sorbitol 1 each 07/10/16 15:48 Cepastat Lozenge - MM Q4H PRN SORE THROAT Guaifenesin 10 ml 07/10/16 15:48 Robitussin Dm - PO Q6H PRN COUGH Ibuprofen 400 mg 07/10/16 15:48 Motrin - PO Q6H PRN PAIN Loperamide HCl 4 mg 07/10/16 15:48 Imodium - PO Q6H PRN DIARRHEA Magnesium Hydroxide 30 ml 07/10/16 15:48 Milk Of Magnesia - PO DAILY PRN CONSTIPATION Nicotine Polacrilex 2 mg 07/10/16 15:48 Nicorette Gum - BUC Q2H PRN NICOTINE REPLACEMENT RX Pseudoephedrine/Triprolidine 1 combo 07/10/16 15:48 Actifed - PO TID PRN NASAL CONGESTION Current Side Effect: No Lab tests ordered: No Lab tests reviewed: Yes Provider note:: Patient will complete this treatment and meet his goals on , will continue to address his issues at [employer] [facility] [employer]. He focuses on importance to continue maintain abstinence and utilization all supports available to prevent relapses, patient was encouraged to use alternative ways to cope with life stressors. Patient is stable for discharge tomorrow. Total face to face time:: 30 Mental Status Exam - Mental Status Exam Alert and Oriented to: Time, Place, Person Cognitive Function: Good Patient Appearance: Well Groomed Mood: Hopeful Affect: Appropriate, Mood Congruent Patient Behavior: Appropriate, Cooperative Speech Pattern: Clear, Appropriate Voice Loudness: Normal Thought Process: Intact, Goal Oriented Thought Disorder: Not Present Hallucinations: Denies Suicidal Ideation: Denies Homicidal Ideation: Denies Insight/Judgement: Good Sleep: Fair Appetite: Fair Muscle strength/Tone: Normal Gait/Station: Normal
[2016-07-28 06:55] VITALS: BP 113/78; PULSE 87; TEMP 98.1
== END 2016-07-28 07:30 | disposition home or self-care (01) | DRG 772 ==
LOC: YASAS 14:35 → Y5N 14:37
PROVIDERS: ADMIT Psychiatry & Neurology Psychiatry; ATTEND Psychiatry & Neurology Psychiatry
PROC: HZ42ZZZ Group Counseling for Substance Abuse Treatment, Cognitive-Behavioral (ICD-10-PCS; principal; 2016-07-28)
DX: F10.20 Alcohol dependence, uncomplicated (principal); F14.20 Cocaine dependence, uncomplicated; F17.210 Nicotine dependence, cigarettes, uncomplicated; Z59.0 Homelessness

== ENCOUNTER 2017-01-14 08:17 | Inpatient (IN) | payer OTHER ==
[2017-01-14 08:48] VITALS: BMI 44.3
--- NOTE | 2017-01-14 11:52 | HP ---
CIWA Score - CIWA Score Nausea/Vomitin-No Nausea/No Vomiting Muscle Tremors: 4-Moderate,w/Arms Extend Anxiety: 3 Agitation: 4-Moderately Restless Paroxysmal Sweats: 3 Orientation: 0-Oriented Tacttile Disturbances: 1-Very Mild Itch/Numbness Auditory Disturbances: 0-None Visual Disturbances: 0-None Headache: 0-None Present CIWA-Ar Total Score: 15 Admission ROS BHS - HPI Chief Complaint: Withdrawal sx. Allergies/Adverse Reactions: Allergies Allergy/AdvReac Type Severity Reaction Status Date / Time No Known Allergies Allergy Verified 01/14/17 10:24 History of Present Illness: 51 y/o man with a long hx. of alcoholism is admitted for detox. pt. has been in previous detox, denies significant sobriety. Exam Limitations: No Limitations - Ebola screening Have you traveled outside of the country in the last 21 days: No Have you had contact with anyone from an Ebola affected area: No Have you been sick,other than usual withdrawal symptoms: No Do you have a fever: No - Review of Systems Constitutional: Diaphoresis EENT: reports: No Symptoms Reported Respiratory: reports: No Symptoms reported Cardiac: reports: No Symptoms Reported GI: reports: Nausea, Abdominal cramping : reports: No Symptoms Reported Musculoskeletal: reports: Joint Pain Integumentary: reports: Sweating Neuro: reports: Tremors Endocrine: reports: No Symptoms Reported Hematology: reports: No Symptoms Reported Psychiatric: reports: No Sypmtoms Reported Other Systems: Reviewed and Negative Patient History - Patient Medical History Hx Anemia: No Hx Asthma: No Hx Chronic Obstructive Pulmonary Disease (COPD): No Hx Cancer: No Hx Cardiac Disorders: No Hx Congestive Heart Failure: No Hx Hypertension: No Hx Hypercholesterolemia: No Hx Pacemaker: No HX Cerebrovascular Accident: No Hx Seizures: No Hx Dementia: No Hx Diabetes: No Hx Gastrointestinal Disorders: No Hx Liver Disease: No Hx Genitourinary Disorders: No Hx Sexually Transmitted Disorders: No Hx Renal Disease (ESRD): No Hx Thyroid Disease: No Hx Human Immunodeficiency Virus (HIV): No Hx Hepatitis C: No Hx Depression: No Hx Suicide Attempt: No Hx Bipolar Disorder: No Hx Schizophrenia: No - Patient Surgical History Past Surgical History: No Hx Neurologic Surgery: No Hx Cataract Extraction: No Hx Cardiac Surgery: No Hx Lung Surgery: No Hx Breast Surgery: No Hx Breast Biopsy: No Hx Abdominal Surgery: No Hx Appendectomy: No Hx Cholecystectomy: No Hx Genitourinary Surgery: No Hx Section: No Hx Orthopedic Surgery: No Anesthesia Reaction: No - PPD History Previous Implant?: Yes Documented Results: Negative w/proof Implanted On Prior [facility] Admission?: Yes Date: 05/10/16 Results: 0 mm PPD to be Administered?: No - Smoking Cessation Smoking history: Current every day smoker Have you smoked in the past 12 months: Yes Aproximately how many cigarettes per day: 8 Cigars Per Day: 0 Hx Chewing Tobacco Use: No Initiated information on smoking cessation: Yes 'Breaking Loose' booklet given: 01/14/17 - Substance & Tx. History Hx Alcohol Use: Yes Hx Substance Use: Yes Substance Use Type: Alcohol, Cocaine Hx Substance Use Treatment: Yes (Detox last at [facility] 04/2016) - Substances Abused Alcohol Route: Oral Frequency: Daily Amount used: 6-9 beers Age of first use: 14 Date of Last Use: 01/13/17 Cocaine Route: Smoking Frequency: Daily Amount used: 2 grams Age of first use: 28 Date of Last Use: 01/13/17 Family Disease History - Family Disease History Family Disease History: Other: Father (alcoholism- ) Admission Physical Exam S - Vital Signs Vital Signs: Vital Signs - 24 hr 01/14/17 08:46 Temperature 98.5 F Pulse Rate 84 Respiratory 18 Rate Blood Pressure 126/67 - Physical General Appearance: Yes: Tremorous, Sweating, Anxious HEENTM: Yes: Within Normal Limits Respiratory: Yes: Chest Non-Tender, Lungs Clear, Normal Breath Sounds Neck: Yes: Supple Breast: Yes: Breast Exam Deferred Cardiology: Yes: Regular Rhythm, Regular Rate, S1, S2 Abdominal: Yes: Normal Bowel Sounds, Non Tender, Soft, Protuberent Genitourinary: Yes: Within Normal Limits Back: Yes: Within Normal Limits Musculoskeletal: Yes: Within Normal Limits Extremities: Yes: Tremors, Pedal Edema (2+) Neurological: Yes: Fully Oriented, Alert Integumentary: Yes: Diaphoresis Lymphatic: Yes: Within Normal Limits - Diagnostic (1) Alcohol dependence with uncomplicated withdrawal Current Visit: Yes Status: Chronic (2) Cocaine dependence Current Visit: Yes Status: Chronic (3) Nicotine dependence Current Visit: Yes Status: Chronic Qualifiers: Nicotine product type: cigarettes Substance use status: uncomplicated Qualified Code(s): F17.210 - Nicotine dependence, cigarettes, uncomplicated (4) Obesity Current Visit: Yes Status: Chronic Qualifiers: Obesity type: due to excess calories Obesity classification: adult class 3 (BMI >= 40) Serious obesity comorbidity presence: with serious comorbidity Body mass index: BMI 40.0-44.9 Qualified Code(s): E66.09 - Other obesity due to excess calories; Z68.41 - Body mass index (BMI) 40.0-44.9 , adult Comment: Sleep Apnea by history Cleared for Admission [facility] - Detox or Rehab [facility] Level of Care: Medically Managed Detox Regimen/Protocol: Librium [facility] Breath Alcohol Content Breath Alcohol Content: 0 Urine Drug Screen - Results Drug Screen Negative: No Urine Drug Screen Results: DANIEL-Cocaine
[2017-01-14] MEDS ORDERED: ACETAMINOPHEN 325 MG TABLET (FP) PO PRN (11:58)
[2017-01-14] MEDS ORDERED: P-EPHED 60MG/TRIPROLIDI 2.5MG TABLET PO PRN (11:58)
[2017-01-14] MEDS ORDERED: IBUPROFEN 400 MG TABLET (FP) PO PRN (11:58)
[2017-01-14] MEDS ORDERED: LOPERAMIDE HCL 2 MG CAPSULE PO PRN (11:58)
[2017-01-14] MEDS ORDERED: MAGNESIUM HYDROX 2400MG/30ML ORAL SUSPENSION 30 ML CUP PO PRN (11:58)
[2017-01-14] MEDS ORDERED: hydrOXYzine PAMOATE 50 MG CAPSULE (FP) PO PRN (11:58)
[2017-01-14] MEDS ORDERED: MENTHOL/PHENOL 1 EACH UD MM PRN (11:58)
[2017-01-14] MEDS ORDERED: chlordiazePOXIDE HCL 25 MG CAPSULE PO PRN (11:58)
[2017-01-14] MEDS ORDERED: guaiFENesin/D-METHORPHAN HB 10 ML UNIT-DOSE CUPS PO PRN (11:58)
[2017-01-14] MEDS ORDERED: MAG HYDROX/AL HYDROX/SIMETH 30 ML UNIT-DOSE CUP PO PRN (11:58)
[2017-01-14] MEDS ORDERED: NICOTINE POLACRILEX 2 MG GUM BUC PRN (11:58)
[2017-01-14] MEDS ORDERED: diphenhydrAMINE HCL 50 MG CAPSULE PO PRN (11:58)
[2017-01-14] MEDS ORDERED: MAGNESIUM CITRATE 300 ML BOTTLE PO PRN (11:58)
[2017-01-14] MEDS ORDERED: chlordiazePOXIDE HCL 25 MG CAPSULE PO ONE (12:52)
[2017-01-14] MEDS: FUROSEMIDE 20 MG TABLET (FP) PO SCH (14:21)
[2017-01-14] MEDS: NICOTINE 21 MG/24 HOURS TOPICAL PATCH TD SCH (14:23)
[2017-01-14 16:57] LABS: URINE APPEARANCE CLOUDY; URINE BILIRUBIN NEGATIVE (NEGATIVE); URINE BLOOD 1+ (NEGATIVE); URINE COLOR YELLOW; URINE GLUCOSE (UA) NEGATIVE (NEGATIVE); URINE KETONE NEGATIVE (NEGATIVE); URINE NITRITE NEGATIVE (NEGATIVE); URINE PROTEIN NEGATIVE (NEGATIVE); URINE UROBILINOGEN 4.0 E.U/dl mg/dL (0.2-1.0)
[2017-01-14 17:02] LABS: URINE LEUK ESTERASE 3+ (NEGATIVE)
[2017-01-14] MEDS: chlordiazePOXIDE HCL 25 MG CAPSULE PO SCH ×2 (19:03→22:11)
[2017-01-14] MEDS: SPIRONOLACTONE 25 MG TABLET (FP) PO SCH (19:04)
[2017-01-14 20:05] LABS: URINE BACTERIA RARE /hpf (NONE SEEN); URINE MUCUS MANY; URINE RBC 103 /hpf (0-3); URINE WBC 144 /hpf (3-5)
[2017-01-14] MEDS: THIAMINE HCL 100 MG TABLET (FP) PO SCH (22:10)
[2017-01-15] MEDS: chlordiazePOXIDE HCL 25 MG CAPSULE PO SCH ×4 (05:34→23:05)
[2017-01-15] MEDS: FUROSEMIDE 20 MG TABLET (FP) PO SCH ×2 (05:35→13:53)
[2017-01-15] MEDS ORDERED: PRENATAL VITAMINS W/ FOLIC ACID TABLET (FP) PO SCH (10:00)
[2017-01-15 11:10] LABS: MCH 29.9 pg (25.7-33.7); MEAN CELL VOLUME 90.5 fl (80-96); MEAN PLT VOLUME 12.5 fl (7.5-11.1); PLATELET COUNT 176 K/MM3 (134-434); RDW 16.3 % (11.9-15.9); WHITE BLOOD COUNT 6.1 K/mm3 (4.0-10.0)
[2017-01-15] MEDS: SPIRONOLACTONE 25 MG TABLET (FP) PO SCH ×2 (11:21→19:39)
[2017-01-15] MEDS: NICOTINE 21 MG/24 HOURS TOPICAL PATCH TD SCH (11:23)
[2017-01-15 11:28] LABS: ALBUMIN 3.3 g/dl (3.4-5.0); ALK PHOS 71 U/L (45-117); ANION GAP 10 (8-16); BILIRUBIN,TOTAL 0.4 mg/dL (0.2-1.0); CALCIUM 8.8 mg/dL (8.5-10.1); CO2 25 mmol/L (21-32); CREATININE 0.9 mg/dL (0.7-1.3); GLUCOSE,RANDOM 126 mg/dL (74-106); SGOT/AST 14 U/L (15-37); SGPT/ALT 27 U/L (12-78); TOT PROT 6.3 g/dl (6.4-8.2)
--- NOTE | 2017-01-15 18:46 | EKG ---
Test Reason : Blood Pressure : / mmHG Vent. Rate : 065 BPM Atrial Rate : 065 BPM P-R Int : 128 ms QRS Dur : 094 ms QT Int : 424 ms P-R-T Axes : -82 -22 -43 degrees QTc Int : 440 ms UNUSUAL P AXIS AND SHORT [place], PROBABLE JUNCTIONAL RHYTHM LOW VOLTAGE QRS SEPTAL INFARCT , AGE UNDETERMINED INFERIOR INFARCT , AGE UNDETERMINED ABNORMAL ECG WHEN COMPARED WITH ECG OF 06-JUL-2016 17:31, JUNCTIONAL RHYTHM HAS REPLACED SINUS RHYTHM INFERIOR INFARCT IS NOW PRESENT NONSPECIFIC T WAVE ABNORMALITY, WORSE IN INFERIOR LEADS Confirmed by WILTON LLOYD MD ([id number]) on 01/15/2017 6:45:42 PM Referred By: Confirmed By:WILTON LLOYD MD
--- NOTE | 2017-01-15 20:26 | PN ---
[facility] CIWA - CIWA Score Nausea/Vomitin-No Nausea/No Vomiting Muscle Tremors: 2 Anxiety: 4-Mod. Anxious/Guarded Agitation: 0-Normal Activity Paroxysmal Sweats: 3 Orientation: 2-Disoriented Date<2 days Tacttile Disturbances: 2-Mild Itch/Numbness/Burn Auditory Disturbances: 2-Mild Harshness/Frighten Visual Disturbances: 2-Mild Sensitivity Headache: 0-None Present CIWA-Ar Total Score: 17 S Progress Note (SOAP) Subjective: Fatigue, Sweating, Body Aches. Objective: PT. A & O X 2 (DISORIENTED ABOUT DAY / DATE). NO ACUTE DISTRESS. PT. DENIES CHEST PAIN. 01/15/17 20:23 Vital Signs Temperature 98.1 F 01/15/17 19:00 Pulse Rate 82 01/15/17 19:00 Respiratory Rate 18 01/15/17 19:00 Blood Pressure 109/63 01/15/17 19:00 O2 Sat by Pulse Oximetry (%) Laboratory Tests 01/14/17 01/15/17 01/15/17 15:00 06:10 06:10 WBC 6.1 RBC 4.09 Hgb 12.2 Hct 37.0 MCV 90.5 MCH 29.9 MCHC 33.0 RDW 16.3 H D Plt Count 176 MPV 12.5 H D Sodium 142 Potassium 4.0 Chloride 107 Carbon Dioxide 25 Anion Gap 10 BUN 9 D Creatinine 0.9 D Creat Clearance w eGFR > 60 Random Glucose 126 H D Calcium 8.8 Total Bilirubin 0.4 D AST 14 L D ALT 27 D Alkaline Phosphatase 71 D Total Protein 6.3 L Albumin 3.3 L Urine Color Yellow Urine Appearance Cloudy Urine pH 5.0 Ur Specific Franklin >= 1.030 H Urine Protein Negative Urine Glucose (UA) Negative Urine Ketones Negative Urine Blood 1+ H Urine Nitrite Negative Urine Bilirubin Negative Urine Urobilinogen 4.0 e.u/dl Ur Leukocyte Esterase 3+ H D Urine RBC 103 Urine WBC 144 Ur Epithelial Cells Moderate Urine Bacteria Rare Urine Mucus Many RPR Titer 01/15/17 06:10 WBC RBC Hgb Hct MCV MCH MCHC RDW Plt Count MPV Sodium Potassium Chloride Carbon Dioxide Anion Gap BUN Creatinine Creat Clearance w eGFR Random Glucose Calcium Total Bilirubin AST ALT Alkaline Phosphatase Total Protein Albumin Urine Color Urine Appearance Urine pH Ur Specific [place] Urine Protein Urine Glucose (UA) Urine Ketones Urine Blood Urine Nitrite Urine Bilirubin Urine Urobilinogen Ur Leukocyte Esterase Urine RBC Urine WBC Ur Epithelial Cells Urine Bacteria Urine Mucus RPR Titer Nonreactive LABS NOTED. Assessment: 01/15/17 20:24 WITHDRAWAL SYMPTOMS. Plan: CONTINUE DETOX. REPEAT UA + URINE C & S FOR ABNORMAL ADMISSION UA VALUES. BGM ACBK X 1 TOMORROW AM FOR ELEVATED ADMISSION RANDOM GLUCOSE LEVEL. INCREASE PO FLUID INTAKE.
[2017-01-15] MEDS: THIAMINE HCL 100 MG TABLET (FP) PO SCH (23:06)
[2017-01-16] MEDS: FUROSEMIDE 20 MG TABLET (FP) PO SCH (06:25)
[2017-01-16] MEDS: chlordiazePOXIDE HCL 25 MG CAPSULE PO SCH (06:25)
[2017-01-16 06:39] VITALS: BP 138/92; PULSE 81; TEMP 97.4
--- NOTE | 2017-01-16 07:31 | PN ---
[facility] Progress Note Note: 'S NOTE: INFORMED AT 7:10AM THAT THE PT. WANTS TO SIGN OUT AMA TO SEE OFFICIALS TO GET AN APARTMENT THE PT. WAS SEEN FACE TO FACE AND TRIED TO CONVINCE HIM BUT IT WAS UNSUCCESSFUL. SO, THE PT. SIGNED OUT AMA AND ABOUT TO LEAVE THE FACILITY SOON. RECOMMENDED: TO F/U OUT PT. PROGRAMS AND PMD. PROVIDER: HANNAH SIMONS MD
--- NOTE | 2017-01-16 14:04 | DS ---
[facility] Detox Discharge Summary Admission Date: 01/14/17 Discharge Date: 01/16/17 - History Present History: Alcohol Dependence, Cocaine Dependence Pertinent Past History: Denies - Physical Exam Results Vital Signs: Vital Signs Temperature 97.4 F L 01/16/17 06:38 Pulse Rate 81 01/16/17 06:38 Respiratory Rate 20 01/16/17 06:38 Blood Pressure 138/92 01/16/17 06:38 O2 Sat by Pulse Oximetry (%) Pertinent Admission Physical Exam Findings: Withdrawal symptoms Laboratory Tests 01/14/17 01/15/17 01/15/17 15:00 06:10 06:10 WBC 6.1 RBC 4.09 Hgb 12.2 Hct 37.0 MCV 90.5 MCH 29.9 MCHC 33.0 RDW 16.3 H D Plt Count 176 MPV 12.5 H D Sodium 142 Potassium 4.0 Chloride 107 Carbon Dioxide 25 Anion Gap 10 BUN 9 D Creatinine 0.9 D Creat Clearance w eGFR > 60 Random Glucose 126 H D Calcium 8.8 Total Bilirubin 0.4 D AST 14 L D ALT 27 D Alkaline Phosphatase 71 D Total Protein 6.3 L Albumin 3.3 L Urine Color Yellow Urine Appearance Cloudy Urine pH 5.0 Ur Specific [place] >= 1.030 H Urine Protein Negative Urine Glucose (UA) Negative Urine Ketones Negative Urine Blood 1+ H Urine Nitrite Negative Urine Bilirubin Negative Urine Urobilinogen 4.0 e.u/dl Ur Leukocyte Esterase 3+ H D Urine RBC 103 Urine WBC 144 Ur Epithelial Cells Moderate Urine Bacteria Rare Urine Mucus Many RPR Titer 01/15/17 06:10 WBC RBC Hgb Hct MCV MCH MCHC RDW Plt Count MPV Sodium Potassium Chloride Carbon Dioxide Anion Gap BUN Creatinine Creat Clearance w eGFR Random Glucose Calcium Total Bilirubin AST ALT Alkaline Phosphatase Total Protein Albumin Urine Color Urine Appearance Urine pH Ur Specific [place] Urine Protein Urine Glucose (UA) Urine Ketones Urine Blood Urine Nitrite Urine Bilirubin Urine Urobilinogen Ur Leukocyte Esterase Urine RBC Urine WBC Ur Epithelial Cells Urine Bacteria Urine Mucus RPR Titer Nonreactive Labs noted - Medication Discharge Medications: Ambulatory Orders NK [No Known Home Medication] 05/03/15 - Diagnosis (1) Alcohol dependence with uncomplicated withdrawal Status: Acute (2) Cocaine dependence Status: Chronic (3) Nicotine dependence Status: Chronic Qualifiers: Nicotine product type: cigarettes Substance use status: uncomplicated Qualified Code(s): F17.210 - Nicotine dependence, cigarettes, uncomplicated - AMA Did Patient Leave Against Medical Advice: Yes
[2017-01-16] MEDS ORDERED: chlordiazePOXIDE 5 MG CAPSULE PO SCH (17:00)
[2017-01-17] MEDS ORDERED: chlordiazePOXIDE HCL 10 MG CAPSULE PO SCH (17:00)
== END 2017-01-16 07:17 | disposition left against medical advice (07) | DRG 770 ==
LOC: YASAS 08:17 → Y3N 12:49
PROVIDERS: ADMIT Internal Medicine; ATTEND Internal Medicine
PROC: HZ2ZZZZ Detoxification Services for Substance Abuse Treatment (ICD-10-PCS; principal; 2017-01-14)
DX: F10.230 Alcohol dependence with withdrawal, uncomplicated (principal); F14.20 Cocaine dependence, uncomplicated; F17.210 Nicotine dependence, cigarettes, uncomplicated; E66.09 Other obesity due to excess calories; Z68.41 Body mass index [BMI] 40.0-44.9, adult; Z59.0 Homelessness
CPT/HCPCS: 36415; 80053; 81003; 81015; 85027; 86593; 93005; 93010

== ENCOUNTER 2018-06-19 11:29 | Inpatient (IN) | payer OTHER ==
[2018-06-19 12:59] VITALS: BMI 35.4
--- NOTE | 2018-06-19 14:00 | HP ---
CIWA Score Nausea/Vomitin Muscle Tremors: 2 Anxiety: 2 Agitation: 2 Paroxysmal Sweats: 2 Orientation: 0-Oriented Tacttile Disturbances: 2-Mild Itch/Numbness/Burn Auditory Disturbances: 0-None Visual Disturbances: 1-Very Mild Sensitivity Headache: 0-None Present CIWA-Ar Total Score: 13 - Admission Criteria [facility] Guidelines: Admission for Medically Managed Detox: Requires at least one of the followin. CIWA greater than 12 2. Seizures within the past 24 hours 3. Delirium tremens within the past 24 hours 4. Hallucinations within the past 24 hours 5. Acute intervention needed for co occurring medical disorder 6. Acute intervention needed for co occurring psychiatric disorder 7. Severe withdrawal that cannot be handled at a lower level of care (continued vomiting, continued diarrhea, abnormal vital signs) requiring intravenous medication and/or fluids 8. Admission ROS [facility] Chief Complaint: WITHDRAWAL SYMPTOMS Allergies/Adverse Reactions: Allergies Allergy/AdvReac Type Severity Reaction Status Date / Time Fish Containing Products Allergy Severe Verified 04/06/17 16:29 No Known Drug Allergies Allergy Verified 04/06/17 17:25 NKDA Allergy Uncoded 04/06/17 16:31 History of Present Illness: 52 Y.O. MAN WITH AN EXTENSIVE HISTORY OF ALCOHOL AND COCAINE DEPENDENCE IS HERE SEEKING DETOX SERVICES. HE WAS LAST HERE IN 03/2017 BUT LEFT AMA. LONGEST PERIOD OF SOBRIETY HAS BEEN 1 YEAR. Exam Limitations: No Limitations - Ebola screening Have you traveled outside of the country in the last 21 days: No (N) Have you had contact with anyone from an Ebola affected area: No Have you been sick,other than usual withdrawal symptoms: No Do you have a fever: No - Review of Systems Constitutional: Chills, Diaphoresis EENT: reports: Blurred Vision Respiratory: reports: Shortness of Breath Cardiac: reports: No Symptoms Reported GI: reports: Nausea : reports: No Symptoms Reported Musculoskeletal: reports: Joint Pain (B/L KNEES) Integumentary: reports: No Symptoms Reported Neuro: reports: Headache, Numbness Endocrine: reports: No Symptoms Reported Hematology: reports: No Symptoms Reported Psychiatric: reports: Judgement Intact, Mood/Affect Appropiate, Orientated x3 Other Systems: Reviewed and Negative Patient History - Patient Medical History Hx Anemia: No Hx Asthma: No Hx Chronic Obstructive Pulmonary Disease (COPD): No Hx Cancer: No Hx Cardiac Disorders: No Hx Congestive Heart Failure: No Hx Hypertension: No Hx Hypercholesterolemia: No Hx Pacemaker: No HX Cerebrovascular Accident: No Hx Seizures: No Hx Dementia: No Hx Diabetes: No Hx Gastrointestinal Disorders: No Hx Liver Disease: No Hx Genitourinary Disorders: No Hx Sexually Transmitted Disorders: No Hx Renal Disease (ESRD): No Hx Thyroid Disease: No Hx Human Immunodeficiency Virus (HIV): No Hx Hepatitis C: No Hx Depression: No Hx Suicide Attempt: No Hx Bipolar Disorder: No Hx Schizophrenia: No Other Medical History: SLEEP ANEA, SYNCOPE - Patient Surgical History Past Surgical History: No Hx Neurologic Surgery: No Hx Cataract Extraction: No Hx Cardiac Surgery: No Hx Lung Surgery: No Hx Breast Surgery: No Hx Breast Biopsy: No Hx Abdominal Surgery: No Hx Appendectomy: No Hx Cholecystectomy: No Hx Genitourinary Surgery: No Hx Section: No Hx Orthopedic Surgery: No Anesthesia Reaction: No - PPD History Previous Implant?: Yes Documented Results: Negative w/proof Date: 05/10/16 Results: 0 mm PPD to be Administered?: Yes - Reproductive History Patient is a Female of Child Bearing Age (11 -55 yrs old): No - Smoking Cessation Smoking history: Current every day smoker Have you smoked in the past 12 months: Yes Aproximately how many cigarettes per day: 8 Cigars Per Day: 0 Hx Chewing Tobacco Use: No Initiated information on smoking cessation: Yes 'Breaking Loose' booklet given: 06/19/18 - Substance & Tx. History Hx Alcohol Use: Yes Hx Substance Use: Yes Substance Use Type: Alcohol, Cocaine Hx Substance Use Treatment: Yes (DETOX AND REHAB:2017) - Substances Abused Alcohol Route: Oral Frequency: Daily Amount used: 9-12 CANS OF 12OZ BEERS Age of first use: 12 Date of Last Use: 06/19/18 Cocaine Frequency: 1-2 times per week Amount used: $40 Age of first use: 22 Date of Last Use: 06/16/18 Family Disease History - Family Disease History Family Disease History: Other: Father (alcoholism- ), Sister (no sister) Admission Physical Exam BHS - Vital Signs Vital Signs: Vital Signs - 24 hr 06/19/18 12:58 Temperature 99.4 F Pulse Rate 63 Respiratory 19 Rate Blood Pressure 113/68 - Physical General Appearance: Yes: Obese HEENTM: Yes: Hearing grossly Normal, Normal ENT Inspection, Normocephalic, Normal Voice Respiratory: Yes: Chest Non-Tender, Lungs Clear, Normal Breath Sounds, No Respiratory Distress, No Accessory Muscle Use Neck: Yes: Within Normal Limits, No masses,lesions,Nodules Breast: Yes: Breast Exam Deferred Cardiology: Yes: Regular Rhythm, Regular Rate Abdominal: Yes: Normal Bowel Sounds, Non Tender Genitourinary: Yes: Other (NO COMPLAINTS REPORTED) Back: Yes: Normal Inspection Musculoskeletal: Yes: full range of Motion, Gait Steady, Pelvis Stable Extremities: Yes: Normal Capillary Refill, Normal Inspection, Normal Range of Motion, Non-Tender Neurological: Yes: director of community center II-XII NML intact, Fully Oriented, Alert, Normal Mood/ Affect, Normal Response Integumentary: Yes: Normal Color, Dry, Warm Lymphatic: Yes: Within Normal Limits - Diagnostic (1) Osteoarthritis of knees, bilateral Current Visit: Yes Status: Chronic (2) Alcohol dependence with uncomplicated withdrawal Current Visit: Yes Status: Chronic (3) Nicotine dependence Current Visit: Yes Status: Chronic Qualifiers: Nicotine product type: cigarettes Substance use status: in withdrawal Qualified Code(s): F17.213 - Nicotine dependence, cigarettes, with withdrawal (4) Syncope Current Visit: Yes Status: Chronic Comment: LAST EPISODE WAS 1 YEAR AGO (5) Cocaine dependence Current Visit: Yes Status: Chronic (6) Obesity Current Visit: Yes Status: Chronic Qualifiers: Obesity type: due to excess calories Serious obesity comorbidity presence: with serious comorbidity Body mass index: BMI 35.0-35.9 Qualified Code(s): E66.09 - Other obesity due to excess calories Comment: Sleep Apnea by history (7) Sleep apnea Current Visit: Yes Status: Chronic Qualifiers: Sleep apnea type: other type Qualified Code(s): G47.39 - Other sleep apnea Cleared for Admission [facility] - Detox or Rehab [facility] Level of Care: Medically Managed Detox Regimen/Protocol: Librium [facility] Breath Alcohol Content Breath Alcohol Content: 0.029 Urine Drug Screen - Results Drug Screen Negative: No Urine Drug Screen Results: THC-Marijuana, DANIEL-Cocaine
[2018-06-19] MEDS ORDERED: chlordiazePOXIDE HCL 25 MG CAPSULE PO PRN (14:16)
[2018-06-19] MEDS ORDERED: MAGNESIUM HYDROX 2400MG/30ML ORAL SUSPENSION 30 ML CUP PO PRN (14:16)
[2018-06-19] MEDS ORDERED: hydrOXYzine PAMOATE 50 MG CAPSULE (FP) PO PRN (14:16)
[2018-06-19] MEDS ORDERED: ACETAMINOPHEN 325 MG TABLET (FP) PO PRN (14:16)
[2018-06-19] MEDS ORDERED: MAGNESIUM CITRATE 300 ML BOTTLE PO PRN (14:16)
[2018-06-19] MEDS ORDERED: LOPERAMIDE HCL 2 MG CAPSULE PO PRN (14:16)
[2018-06-19] MEDS ORDERED: MAG HYDROX/AL HYDROX/SIMETH 30 ML UNIT-DOSE CUP PO PRN (14:16)
[2018-06-19] MEDS ORDERED: MENTHOL/PHENOL 1 EACH UD MM PRN (14:16)
[2018-06-19] MEDS ORDERED: guaiFENesin/D-METHORPHAN HB 10 ML UNIT-DOSE CUPS PO PRN (14:16)
[2018-06-19] MEDS ORDERED: IBUPROFEN 400 MG TABLET (FP) PO PRN (14:16)
[2018-06-19] MEDS ORDERED: P-EPHED 60MG/TRIPROLIDI 2.5MG TABLET PO PRN (14:16)
[2018-06-19] MEDS: chlordiazePOXIDE HCL 25 MG CAPSULE PO SCH ×2 (18:14→23:19)
[2018-06-19] MEDS ORDERED: MELATONIN 5 MG TABLETS PO PRN (22:00)
[2018-06-19] MEDS: THIAMINE HCL 100 MG TABLET (FP) PO SCH (22:07)
[2018-06-20] MEDS: chlordiazePOXIDE HCL 25 MG CAPSULE PO SCH ×4 (05:51→22:07)
--- NOTE | 2018-06-20 10:05 | PN ---
S CIWA - CIWA Score Nausea/Vomitin-No Nausea/No Vomiting Muscle Tremors: 4-Moderate,w/Arms Extend Anxiety: 3 Agitation: 3 Paroxysmal Sweats: 3 Orientation: 0-Oriented Tacttile Disturbances: 0-None Auditory Disturbances: 0-None Visual Disturbances: 0-None Headache: 0-None Present CIWA-Ar Total Score: 13 BHS Progress Note (SOAP) Subjective: agitation sweats irritable interrupted sleep Objective: 06/20/18 10:04 Vital Signs Temperature 97.7 F 06/20/18 09:49 Pulse Rate 61 06/20/18 09:49 Respiratory Rate 18 06/20/18 09:49 Blood Pressure 116/64 06/20/18 09:49 O2 Sat by Pulse Oximetry (%) labs pending aaox3 ambulating no acute distress Assessment: 06/20/18 10:05 withdrawal sx Plan: continue detox increase fluids labs pending
[2018-06-20] MEDS: PRENATAL VITAMINS W/ FOLIC ACID TABLET (FP) PO SCH (10:07)
[2018-06-20 13:22] LABS: HEMOGLOBIN 12.3 GM/dL (11.7-16.9); MCH 30.4 pg (25.7-33.7); MCHC 33.2 g/dl (32.0-35.9); MEAN CELL VOLUME 91.5 fl (80-96); MEAN PLT VOLUME 10.9 fl (7.5-11.1); PLATELET COUNT 139 K/MM3 (134-434); RBC 4.04 M/mm3 (4.00-5.60); RDW 15.6 % (11.9-15.9); WHITE BLOOD COUNT 6.6 K/mm3 (4.0-10.0)
[2018-06-20 13:33] LABS: ALBUMIN 3.2 g/dl (3.4-5.0); ALK PHOS 69 U/L (45-117); ANION GAP 6 MMOL/L (8-16); BILIRUBIN,TOTAL 0.4 mg/dL (0.2-1); BLOOD UREA NITROGEN 11 mg/dL (7-18); CALCIUM 8.3 mg/dL (8.5-10.1); CHLORIDE 105 mmol/L (98-107); CO2 28 mmol/L (21-32); CREATININE 0.8 mg/dL (0.55-1.3); GLUCOSE,RANDOM 102 mg/dL (74-106); POTASSIUM 4.5 mmol/L (3.5-5.1); SGOT/AST 12 U/L (15-37); SGPT/ALT 23 U/L (13-61); SODIUM 138 mmol/L (136-145); TOT PROT 6.1 g/dl (6.4-8.2)
[2018-06-20] MEDS: THIAMINE HCL 100 MG TABLET (FP) PO SCH (22:01)
[2018-06-21] MEDS: chlordiazePOXIDE HCL 25 MG CAPSULE PO SCH ×2 (06:22→10:34)
--- NOTE | 2018-06-21 10:17 | PN ---
[facility] CIWA - CIWA Score Nausea/Vomitin-No Nausea/No Vomiting Muscle Tremors: 3 Anxiety: 2 Agitation: 2 Paroxysmal Sweats: 3 Orientation: 0-Oriented Tacttile Disturbances: 0-None Auditory Disturbances: 0-None Visual Disturbances: 0-None Headache: 0-None Present CIWA-Ar Total Score: 10 S Progress Note (SOAP) Subjective: agitation sweats Objective: 06/21/18 10:16 Vital Signs Temperature 98.1 F 06/21/18 09:24 Pulse Rate 67 06/21/18 09:24 Respiratory Rate 18 06/21/18 09:24 Blood Pressure 119/65 06/21/18 09:24 O2 Sat by Pulse Oximetry (%) Laboratory Tests 06/20/18 06/20/18 06/20/18 10:08 10:08 10:08 WBC 6.6 RBC 4.04 Hgb 12.3 Hct 37.0 MCV 91.5 MCH 30.4 MCHC 33.2 RDW 15.6 Plt Count 139 D MPV 10.9 Sodium 138 Potassium 4.5 Chloride 105 Carbon Dioxide 28 Anion Gap 6 L BUN 11 Creatinine 0.8 Creat Clearance w eGFR > 60 Random Glucose 102 Calcium 8.3 L Total Bilirubin 0.4 AST 12 L ALT 23 Alkaline Phosphatase 69 Total Protein 6.1 L Albumin 3.2 L HIV 1&2 Antibody Screen Negative HIV P24 Antigen Negative aaox3 ambulating no acute distress Assessment: 06/21/18 10:25 withdrawal sx Plan: continue detox increase fluids
[2018-06-21] MEDS: PRENATAL VITAMINS W/ FOLIC ACID TABLET (FP) PO SCH (10:34)
[2018-06-21] MEDS: chlordiazePOXIDE 5 MG CAPSULE PO SCH ×2 (17:26→22:46)
[2018-06-21] MEDS: THIAMINE HCL 100 MG TABLET (FP) PO SCH (22:45)
[2018-06-22] MEDS: chlordiazePOXIDE 5 MG CAPSULE PO SCH ×2 (06:54→10:31)
[2018-06-22] MEDS: PRENATAL VITAMINS W/ FOLIC ACID TABLET (FP) PO SCH (10:31)
--- NOTE | 2018-06-22 11:00 | PN ---
[facility] Progress Note (SOAP) Subjective: sweats feeling better Objective: 06/22/18 10:59 Vital Signs Temperature 98.6 F 06/22/18 09:15 Pulse Rate 84 06/22/18 09:15 Respiratory Rate 16 06/22/18 09:15 Blood Pressure 116/65 06/22/18 09:15 O2 Sat by Pulse Oximetry (%) aaox3 ambulating no acute distress Assessment: 06/22/18 10:59 mild withdrawal sx Plan: continue detox increase fluids d/c in am
[2018-06-22] MEDS: chlordiazePOXIDE HCL 10 MG CAPSULE PO SCH (19:57)
[2018-06-23] MEDS: chlordiazePOXIDE HCL 10 MG CAPSULE PO SCH ×3 (00:10→11:43)
[2018-06-23] MEDS: THIAMINE HCL 100 MG TABLET (FP) PO SCH (00:10)
--- NOTE | 2018-06-23 09:04 | DS ---
[facility] Detox Discharge Summary Admission Date: 06/19/18 Discharge Date: 06/23/18 - History Present History: Alcohol Dependence, Cannabis Dependence, Cocaine Dependence - Physical Exam Results Vital Signs: Vital Signs Temperature 97.9 F 06/23/18 06:00 Pulse Rate 75 06/23/18 06:00 Respiratory Rate 20 06/23/18 06:00 Blood Pressure 118/73 06/23/18 06:00 O2 Sat by Pulse Oximetry (%) - Treatment Hospital Course: Detox Protocol Followed, Detoxed Safely, Responded well, Discharged Condition Good, Rehab Referral Accepted - Medication Discharge Medications: Ambulatory Orders NK [No Known Home Medication] 05/03/15 - Diagnosis (1) Alcohol dependence with uncomplicated withdrawal Current Visit: Yes Status: Chronic (2) Cocaine dependence Current Visit: Yes Status: Chronic (3) Nicotine dependence Current Visit: Yes Status: Chronic Qualifiers: Nicotine product type: cigarettes Substance use status: uncomplicated Qualified Code(s): F17.210 - Nicotine dependence, cigarettes, uncomplicated (4) Obesity Current Visit: Yes Status: Chronic Qualifiers: Obesity type: due to excess calories Serious obesity comorbidity presence: with serious comorbidity Body mass index: BMI 35.0-35.9 (5) Osteoarthritis of knees, bilateral Current Visit: Yes Status: Chronic (6) Sleep apnea Current Visit: Yes Status: Chronic Qualifiers: Sleep apnea type: other type Qualified Code(s): G47.39 - Other sleep apnea (7) Syncope Current Visit: Yes Status: Chronic (8) Cannabis abuse Current Visit: Yes Status: Chronic (9) Chronic pain of right knee Current Visit: No Status: Chronic (10) Cocaine dependence with withdrawal Current Visit: Yes Status: Chronic (11) Morbid obesity Current Visit: Yes Status: Chronic - AMA Did Patient Leave Against Medical Advice: No (referred to [facility] rehab)
[2018-06-23] MEDS: PRENATAL VITAMINS W/ FOLIC ACID TABLET (FP) PO SCH (11:43)
[2018-06-23 17:25] VITALS: BP 105/56; PULSE 86; TEMP 97.9
== END 2018-06-23 17:43 | disposition other institution (70) | DRG 774 ==
LOC: YASAS 11:29 → Y6N 15:38
PROVIDERS: ADMIT Neuromusculoskeletal Medicine & OMM; ATTEND Neuromusculoskeletal Medicine & OMM
PROC: HZ2ZZZZ Detoxification Services for Substance Abuse Treatment (ICD-10-PCS; principal; 2018-06-19)
DX: F10.230 Alcohol dependence with withdrawal, uncomplicated (principal); F14.20 Cocaine dependence, uncomplicated; F12.20 Cannabis dependence, uncomplicated; F17.210 Nicotine dependence, cigarettes, uncomplicated; G47.39 Other sleep apnea; M17.0 Bilateral primary osteoarthritis of knee; E66.9 Obesity, unspecified; Z68.35 Body mass index [BMI] 35.0-35.9, adult; Z86.79 Personal history of other diseases of the circulatory system
CPT/HCPCS: 36415; 80053; 85027; 86593; 87389

== ENCOUNTER 2018-06-23 17:49 | Inpatient (IN) | payer OTHER ==
--- NOTE | 2018-06-23 21:20 | HP ---
[facility] Rehab Assess/Revision - Admission History Admitted to Rehab from: [facility] Date of Admission to Rehab: 06/23/2017 - Vital signs Vital Signs: Vital Signs Period Temp Pulse Resp BP Sys/Hernandez Pulse Ox Last 24 Hr 98.0 F 83 18 125/73 - Findings Detox History & Physical reviewed: Yes Concur with findings: Yes Comments/Additional Findings: Patient completed alcohol detox. Needs continued support for cocaine use disorder as well as early alcohol remission. Inpatient Rehab Admission - Initial Determination Are CD services needed?: Yes Free of communicable disease: Yes Not in need of hospitalization: Yes - Rehab Admission Criteria Previous failed treatment: Yes Poor recovery environment: Yes Comorbidities: Yes Lacks judgement: No Patient is meeting Inpatient Rehab admission criteria:: Yes
[2018-06-23] MEDS ORDERED: ACETAMINOPHEN 325 MG TABLET (FP) PO PRN (21:31)
[2018-06-23] MEDS ORDERED: P-EPHED 60MG/TRIPROLIDI 2.5MG TABLET PO PRN (21:31)
[2018-06-23] MEDS ORDERED: MAG HYDROX/AL HYDROX/SIMETH 30 ML UNIT-DOSE CUP PO PRN (21:31)
[2018-06-23] MEDS ORDERED: LOPERAMIDE HCL 2 MG CAPSULE PO PRN (21:31)
[2018-06-23] MEDS ORDERED: MAGNESIUM HYDROX 2400MG/30ML ORAL SUSPENSION 30 ML CUP PO PRN (21:31)
[2018-06-23] MEDS ORDERED: MENTHOL/PHENOL 1 EACH UD MM PRN (21:31)
[2018-06-23] MEDS ORDERED: IBUPROFEN 400 MG TABLET (FP) PO PRN (21:31)
[2018-06-23] MEDS ORDERED: guaiFENesin 200 MG/10 ML 10 ML UNIT-DOSE CUPS PO PRN (21:31)
[2018-06-23] MEDS ORDERED: hydrOXYzine PAMOATE 50 MG CAPSULE (FP) PO PRN (21:31)
[2018-06-23] MEDS ORDERED: MAGNESIUM CITRATE 300 ML BOTTLE PO PRN (21:31)
[2018-06-23] MEDS ORDERED: MELATONIN 5 MG TABLETS PO PRN (22:00)
[2018-06-23] MEDS: THIAMINE HCL 100 MG TABLET (FP) PO SCH (22:48)
[2018-06-24] MEDS: PRENATAL VITAMINS W/ FOLIC ACID TABLET (FP) PO SCH (10:35)
[2018-06-24] MEDS: THIAMINE HCL 100 MG TABLET (FP) PO SCH (22:05)
[2018-06-25] MEDS: PRENATAL VITAMINS W/ FOLIC ACID TABLET (FP) PO SCH (10:29)
[2018-06-25] MEDS: THIAMINE HCL 100 MG TABLET (FP) PO SCH (22:15)
[2018-06-26] MEDS: PRENATAL VITAMINS W/ FOLIC ACID TABLET (FP) PO SCH (10:47)
[2018-06-26] MEDS: THIAMINE HCL 100 MG TABLET (FP) PO SCH (22:12)
[2018-06-27] MEDS: PRENATAL VITAMINS W/ FOLIC ACID TABLET (FP) PO SCH (11:10)
[2018-06-27] MEDS: THIAMINE HCL 100 MG TABLET (FP) PO SCH (22:20)
[2018-06-28] MEDS: PRENATAL VITAMINS W/ FOLIC ACID TABLET (FP) PO SCH (10:58)
[2018-06-28] MEDS: THIAMINE HCL 100 MG TABLET (FP) PO SCH (22:08)
[2018-06-29 07:12] VITALS: PULSE 76
[2018-06-29] MEDS: PRENATAL VITAMINS W/ FOLIC ACID TABLET (FP) PO SCH (11:08)
--- NOTE | 2018-06-29 13:13 | PN ---
[facility] Progress Note Note: PATIENT REPORTED TO STAFF AND [employer] THAT HE WOULD LIKE TO BE D/C TOMORROW HE HAS PERSONAL MATTERS TO ATTEND TO. PATIENT IS MEDICALLY STABLE AT THIS TIME AND DENIES SI/HI. PATIENT CURRENTLY HAS CASE MANAGEMENT TEAM AND OUTPATIENT SUBSTANCE ABUSE TREATMENT WITH CASES. PATIENT STATES HE MET ALL GOALS WITH REHAB PROGRAM AND WILL CONTINUE WITH GROUP MEETINGS TO PREVENT RELAPSE. PATIENT RECOMMENDED TO FOLLOW UP WITH PCP WITHIN ONE WEEK OF D/C TO CONTINUE MEDICAL TREATMENT. Vital Signs Temperature 98.5 F 06/29/18 07:10 Pulse Rate 76 06/29/18 07:10 Respiratory Rate 18 06/29/18 07:10 Blood Pressure 123/76 06/29/18 07:10 O2 Sat by Pulse Oximetry (%)
[2018-06-29] MEDS: THIAMINE HCL 100 MG TABLET (FP) PO SCH (22:10)
[2018-06-30 06:38] VITALS: BP 145/86; TEMP 97.6
== END 2018-06-30 06:00 | disposition home or self-care (01) | DRG 772 ==
LOC: YASAS 17:49 → Y3W 17:54
PROVIDERS: ADMIT Psychiatry & Neurology Psychiatry; ATTEND Psychiatry & Neurology Psychiatry
PROC: HZ42ZZZ Group Counseling for Substance Abuse Treatment, Cognitive-Behavioral (ICD-10-PCS; principal; 2018-06-23)
DX: F10.20 Alcohol dependence, uncomplicated (principal); F14.20 Cocaine dependence, uncomplicated; E66.01 Morbid (severe) obesity due to excess calories; Z68.36 Body mass index [BMI] 36.0-36.9, adult

== ENCOUNTER 2018-12-12 08:50 | Inpatient (IN) | payer OTHER ==
[2018-12-12 09:38] VITALS: BMI 37.0
--- NOTE | 2018-12-12 10:38 | HP ---
CIWA Score Nausea/Vomitin Muscle Tremors: 4-Moderate,w/Arms Extend Anxiety: 2 Agitation: 0-Normal Activity Paroxysmal Sweats: 2 Orientation: 0-Oriented Tacttile Disturbances: 2-Mild Itch/Numbness/Burn Auditory Disturbances: 0-None Visual Disturbances: 2-Mild Sensitivity Headache: 0-None Present CIWA-Ar Total Score: 14 - Admission Criteria OASAS Guidelines: Admission for Medically Managed Detox: Requires at least one of the followin. CIWA greater than 12 2. Seizures within the past 24 hours 3. Delirium tremens within the past 24 hours 4. Hallucinations within the past 24 hours 5. Acute intervention needed for co occurring medical disorder 6. Acute intervention needed for co occurring psychiatric disorder 7. Severe withdrawal that cannot be handled at a lower level of care (continued vomiting, continued diarrhea, abnormal vital signs) requiring intravenous medication and/or fluids 8. Admission ROS S - HPI Allergies/Adverse Reactions: Allergies Allergy/AdvReac Type Severity Reaction Status Date / Time Fish Containing Products Allergy Severe Difficulty Verified 12/12/18 09:32 Breathing No Known Drug Allergies Allergy Verified 06/19/18 15:33 NKDA Allergy Uncoded 06/19/18 15:33 History of Present Illness: pt here requesting detox from etoh use , reports 2 pints /day x 4 d/week, latest use 2 days ago , current symptoms as above , denies seizures , had a blackout2 years ago , denies tremors . cocaine : 2 gr/day denies ivdu cannabis - occasional tobacco : 1/2 ppd pmhx : denies meds _ denies Exam Limitations: No Limitations - Ebola screening Have you traveled outside of the country in the last 21 days: No Have you had contact with anyone from an Ebola affected area: No Do you have a fever: No - Review of Systems Constitutional: See HPI EENT: reports: See HPI Respiratory: reports: No Symptoms reported Cardiac: reports: No Symptoms Reported GI: reports: See HPI : reports: No Symptoms Reported Neuro: reports: No Symptoms reported Endocrine: reports: No Symptoms Reported Psychiatric: reports: Orientated x3 Patient History - Patient Medical History Hx Anemia: No Hx Asthma: No Hx Chronic Obstructive Pulmonary Disease (COPD): No Hx Cancer: No Hx Cardiac Disorders: No Hx Congestive Heart Failure: No Hx Hypertension: No Hx Hypercholesterolemia: No Hx Pacemaker: No HX Cerebrovascular Accident: No Hx Seizures: No Hx Dementia: No Hx Diabetes: No Hx Gastrointestinal Disorders: No Hx Liver Disease: No Hx Genitourinary Disorders: No Hx Sexually Transmitted Disorders: No Hx Renal Disease (ESRD): No Hx Thyroid Disease: No Hx Human Immunodeficiency Virus (HIV): No Hx Hepatitis C: No Hx Depression: No Hx Suicide Attempt: No Hx Bipolar Disorder: No Hx Schizophrenia: No - Patient Surgical History Past Surgical History: No Hx Neurologic Surgery: No Hx Cataract Extraction: No Hx Cardiac Surgery: No Hx Lung Surgery: No Hx Breast Surgery: No Hx Breast Biopsy: No Hx Abdominal Surgery: No Hx Appendectomy: No Hx Cholecystectomy: No Hx Genitourinary Surgery: No Hx Section: No Hx Orthopedic Surgery: Yes Other Surgical History: left FOOT SX. Anesthesia Reaction: No - PPD History Date: 06/21/18 Results: 0 mm - Smoking Cessation Smoking history: Current every day smoker Have you smoked in the past 12 months: Yes Aproximately how many cigarettes per day: 8 Cigars Per Day: 0 Hx Chewing Tobacco Use: No Initiated information on smoking cessation: No - Substances abused Alcohol Substance route: Oral Frequency: Daily Amount used: 2.5 pints of voldka and rum Age of first use: 13 Date of last use: 12/10/18 Cocaine Substance route: Smoking Frequency: Daily Amount used: 2.5 grams Age of first use: 24 Date of last use: 12/12/18 Family Disease History - Family Disease History Family Disease History: Other: Father (alcoholism- ), Sister (no sister) Admission Physical Exam [facility] - Vital Signs Vital Signs: Vital Signs - 24 hr 12/12/18 12/12/18 09:27 09:53 Temperature 97.2 F L 97.2 F L Pulse Rate 68 68 Respiratory 20 20 Rate Blood Pressure 106/74 106/74 - Physical General Appearance: Yes: No Apparent Distress HEENTM: Yes: Hearing grossly Normal, Normocephalic, Normal Voice, Other (poor dentition , many missing teeth) Respiratory: Yes: Lungs Clear, No Respiratory Distress, No Accessory Muscle Use , Other (large posterior left upper throacic lipoma) Neck: Yes: No masses,lesions,Nodules, Trachea in good position Cardiology: Yes: Regular Rhythm, Regular Rate, S1, S2 Abdominal: Yes: Non Tender, Soft Extremities: Yes: Normal Range of Motion, Non-Tender, Tremors Neurological: Yes: Fully Oriented, Alert, Motor Strength 5/5 Integumentary: Yes: Warm, Other (onychomycosis x 10 toes) - Diagnostic (1) Alcohol dependence with uncomplicated withdrawal Current Visit: Yes Status: Chronic (2) Cocaine dependence Current Visit: Yes Status: Chronic (3) Nicotine dependence Current Visit: Yes Status: Chronic Qualifiers: Nicotine product type: cigarettes Breathalyzer - Breathalyzer Breathalyzer: 0 Urine Drug Screen - Test Device Lot number: [id number] Expiration date: 09/26/20 - Control Is test valid?: Yes - Results Drug screen NEGATIVE: No Urine drug screen results: THC-Marijuana, DANIEL-Cocaine Inpatient Rehab Admission - Rehab Decision to Admit Inpatient rehab admission?: No
[2018-12-12] MEDS ORDERED: hydrOXYzine PAMOATE 25 MG CAPSULE (FP) PO PRN (10:43)
[2018-12-12] MEDS ORDERED: MAGNESIUM CITRATE 300 ML BOTTLE PO PRN (10:43)
[2018-12-12] MEDS ORDERED: MAG HYDROX/AL HYDROX/SIMETH 30 ML UNIT-DOSE CUP PO PRN (10:43)
[2018-12-12] MEDS ORDERED: NICOTINE POLACRILEX 2 MG GUM BUC PRN (10:43)
[2018-12-12] MEDS ORDERED: MAGNESIUM HYDROX 2400MG/30ML ORAL SUSPENSION 30 ML CUP PO PRN (10:43)
[2018-12-12] MEDS ORDERED: BISMUTH SUBSALICYLATE 262 MG/15 ML BTL PO PRN (10:43)
[2018-12-12] MEDS ORDERED: ACETAMINOPHEN 325 MG TABLET (FP) PO PRN ×2 (10:43)
[2018-12-12] MEDS ORDERED: MENTHOL/PHENOL 1 EACH UD MM PRN (10:43)
[2018-12-12] MEDS ORDERED: IBUPROFEN 400 MG TABLET (FP) PO PRN (10:43)
[2018-12-12] MEDS ORDERED: diazePAM 5 MG TABLET PO PRN (10:44)
[2018-12-12] MEDS: diazePAM 5 MG TABLET PO SCH ×2 (13:08→22:15)
[2018-12-12 17:03] LABS: ALBUMIN 3.8 g/dl (3.4-5.0); BILIRUBIN,TOTAL 0.4 mg/dL (0.2-1); BLOOD UREA NITROGEN 13.8 mg/dL (7-18); CALCIUM 9.2 mg/dL (8.5-10.1); CREATININE 1.1 mg/dL (0.55-1.3); HEMATOCRIT 39.2 % (35.4-49); MCH 30.1 pg (25.7-33.7); MCHC 33.2 g/dl (32.0-35.9); MEAN CELL VOLUME 90.7 fl (80-96); MEAN PLT VOLUME 10.5 fl (7.5-11.1); PLATELET COUNT 178 K/MM3 (134-434); POTASSIUM 4.3 mmol/L (3.5-5.1); RBC 4.32 M/mm3 (4.00-5.60); RDW 15.4 % (11.9-15.9); TOT PROT 6.9 g/dl (6.4-8.2); WHITE BLOOD COUNT 6.3 K/mm3 (4.0-10.0)
[2018-12-12] MEDS: THIAMINE HCL 100 MG TABLET (FP) PO SCH (22:15)
[2018-12-12] MEDS: MELATONIN 5 MG TABLETS PO PRN (22:16)
[2018-12-13] MEDS: diazePAM 5 MG TABLET PO SCH ×3 (06:57→22:33)
[2018-12-13] MEDS: PRENATAL VITAMINS W/ FOLIC ACID TABLET (FP) PO SCH (11:29)
--- NOTE | 2018-12-13 12:04 | PN ---
[facility] CIWA - CIWA Score Nausea/Vomitin-Mild Nausea/No Vomiting Muscle Tremors: 2 Anxiety: 1-Mildly Anxious Agitation: 2 Paroxysmal Sweats: 2 Orientation: 0-Oriented Tacttile Disturbances: 1-Very Mild Itch/Numbness Auditory Disturbances: 0-None Visual Disturbances: 1-Very Mild Sensitivity Headache: 0-None Present CIWA-Ar Total Score: 10 S Progress Note (SOAP) Subjective: c/o of interrupted sleep, sweats, chills Objective: 12/13/18 12:03 Vital Signs Temperature 97.7 F 12/13/18 07:21 Pulse Rate 59 L 12/13/18 07:21 Respiratory Rate 18 12/13/18 07:21 Blood Pressure 100/60 12/13/18 07:21 O2 Sat by Pulse Oximetry (%) Laboratory Last Values WBC 6.3 K/mm3 (4.0-10.0) 12/12/18 13:00 RBC 4.32 M/mm3 (4.00-5.60) 12/12/18 13:00 Hgb 13.0 GM/dL (11.7-16.9) 12/12/18 13:00 Hct 39.2 % (35.4-49) 12/12/18 13:00 MCV 90.7 fl (80-96) 12/12/18 13:00 MCH 30.1 pg (25.7-33.7) 12/12/18 13:00 MCHC 33.2 g/dl (32.0-35.9) 12/12/18 13:00 RDW 15.4 % (11.9-15.9) 12/12/18 13:00 Plt Count 178 K/MM3 (134-434) D 12/12/18 13:00 MPV 10.5 fl (7.5-11.1) 12/12/18 13:00 Sodium 140 mmol/L (136-145) 12/12/18 13:00 Potassium 4.3 mmol/L (3.5-5.1) 12/12/18 13:00 Chloride 108 mmol/L (98-107) H 12/12/18 13:00 Carbon Dioxide 27 mmol/L (21-32) 12/12/18 13:00 Anion Gap 5 MMOL/L (8-16) L 12/12/18 13:00 BUN 13.8 mg/dL (7-18) 12/12/18 13:00 Creatinine 1.1 mg/dL (0.55-1.3) 12/12/18 13:00 Est GFR (CKD-EPI)AfAm 87.13 12/12/18 13:00 Est GFR (CKD-EPI)NonAf 75.17 12/12/18 13:00 Random Glucose 112 mg/dL (74-106) H 12/12/18 13:00 Calcium 9.2 mg/dL (8.5-10.1) 12/12/18 13:00 Total Bilirubin 0.4 mg/dL (0.2-1) 12/12/18 13:00 AST 7 U/L (15-37) L 12/12/18 13:00 ALT 15 U/L (13-61) 12/12/18 13:00 Alkaline Phosphatase 54 U/L (45-117) 12/12/18 13:00 Total Protein 6.9 g/dl (6.4-8.2) 12/12/18 13:00 Albumin 3.8 g/dl (3.4-5.0) 12/12/18 13:00 RPR Titer Nonreactive (NONREACTIVE) 12/12/18 13:00 labs reviewed Assessment: 12/13/18 12:03 AOx3 no acute distress full ROM, ambulating in the unit Plan: increase PO fluids continue detox continue to monitor
[2018-12-13] MEDS: MELATONIN 5 MG TABLETS PO PRN (22:33)
[2018-12-13] MEDS: THIAMINE HCL 100 MG TABLET (FP) PO SCH (22:33)
[2018-12-14] MEDS: diazePAM 5 MG TABLET PO SCH ×2 (06:47→18:34)
[2018-12-14] MEDS: PRENATAL VITAMINS W/ FOLIC ACID TABLET (FP) PO SCH (10:58)
--- NOTE | 2018-12-14 14:15 | PN ---
[facility] CIWA - CIWA Score Nausea/Vomitin-No Nausea/No Vomiting Muscle Tremors: None Anxiety: 3 Agitation: 0-Normal Activity Paroxysmal Sweats: 2 Orientation: 0-Oriented Tacttile Disturbances: 1-Very Mild Itch/Numbness Auditory Disturbances: 0-None Visual Disturbances: 0-None Headache: 1-Very Mild CIWA-Ar Total Score: 7 S Progress Note (SOAP) Subjective: interrupted sleep, body aches, fatigue, chills Objective: 12/14/18 14:14 Vital Signs Temperature 97.9 F 12/14/18 13:25 Pulse Rate 64 12/14/18 13:25 Respiratory Rate 18 12/14/18 13:25 Blood Pressure 116/62 12/14/18 13:25 O2 Sat by Pulse Oximetry (%) Laboratory Last Values WBC 6.3 K/mm3 (4.0-10.0) 12/12/18 13:00 RBC 4.32 M/mm3 (4.00-5.60) 12/12/18 13:00 Hgb 13.0 GM/dL (11.7-16.9) 12/12/18 13:00 Hct 39.2 % (35.4-49) 12/12/18 13:00 MCV 90.7 fl (80-96) 12/12/18 13:00 MCH 30.1 pg (25.7-33.7) 12/12/18 13:00 MCHC 33.2 g/dl (32.0-35.9) 12/12/18 13:00 RDW 15.4 % (11.9-15.9) 12/12/18 13:00 Plt Count 178 K/MM3 (134-434) D 12/12/18 13:00 MPV 10.5 fl (7.5-11.1) 12/12/18 13:00 Sodium 140 mmol/L (136-145) 12/12/18 13:00 Potassium 4.3 mmol/L (3.5-5.1) 12/12/18 13:00 Chloride 108 mmol/L (98-107) H 12/12/18 13:00 Carbon Dioxide 27 mmol/L (21-32) 12/12/18 13:00 Anion Gap 5 MMOL/L (8-16) L 12/12/18 13:00 BUN 13.8 mg/dL (7-18) 12/12/18 13:00 Creatinine 1.1 mg/dL (0.55-1.3) 12/12/18 13:00 Est GFR (CKD-EPI)AfAm 87.13 12/12/18 13:00 Est GFR (CKD-EPI)NonAf 75.17 12/12/18 13:00 Random Glucose 112 mg/dL (74-106) H 12/12/18 13:00 Calcium 9.2 mg/dL (8.5-10.1) 12/12/18 13:00 Total Bilirubin 0.4 mg/dL (0.2-1) 12/12/18 13:00 AST 7 U/L (15-37) L 12/12/18 13:00 ALT 15 U/L (13-61) 12/12/18 13:00 Alkaline Phosphatase 54 U/L (45-117) 12/12/18 13:00 Total Protein 6.9 g/dl (6.4-8.2) 12/12/18 13:00 Albumin 3.8 g/dl (3.4-5.0) 12/12/18 13:00 RPR Titer Nonreactive (NONREACTIVE) 12/12/18 13:00 Assessment: 12/14/18 14:14 Aox34 no acute distress, ambulating in the unit withdrawal sx Plan: increase fluids continue detox continue to monitor
[2018-12-14] MEDS: THIAMINE HCL 100 MG TABLET (FP) PO SCH (22:32)
[2018-12-14] MEDS: MELATONIN 5 MG TABLETS PO PRN (22:32)
[2018-12-15] MEDS ORDERED: diazePAM 5 MG TABLET PO ONE (06:00)
[2018-12-15] MEDS: PRENATAL VITAMINS W/ FOLIC ACID TABLET (FP) PO SCH (10:45)
--- NOTE | 2018-12-15 11:12 | DS ---
[facility] Detox Discharge Summary Admission Date: 12/12/18 Discharge Date: 12/15/18 - History Present History: Alcohol Dependence, Cocaine Dependence - Physical Exam Results Vital Signs: Vital Signs Temperature 97.8 F 12/15/18 09:13 Pulse Rate 57 L 12/15/18 09:13 Respiratory Rate 18 12/15/18 09:13 Blood Pressure 118/75 12/15/18 09:13 O2 Sat by Pulse Oximetry (%) Pertinent Admission Physical Exam Findings: pt arrived in withdrawals Laboratory Tests 12/12/18 12/12/18 12/12/18 13:00 13:00 13:00 WBC 6.3 RBC 4.32 Hgb 13.0 Hct 39.2 MCV 90.7 MCH 30.1 MCHC 33.2 RDW 15.4 Plt Count 178 D MPV 10.5 Sodium 140 Potassium 4.3 Chloride 108 H Carbon Dioxide 27 Anion Gap 5 L BUN 13.8 Creatinine 1.1 Est GFR (CKD-EPI)AfAm 87.13 Est GFR (CKD-EPI)NonAf 75.17 Random Glucose 112 H Calcium 9.2 Total Bilirubin 0.4 AST 7 L ALT 15 Alkaline Phosphatase 54 Total Protein 6.9 Albumin 3.8 RPR Titer Nonreactive today pt is aaox3 ambulating no acute distress no s/s of withdrawals sx - Treatment Hospital Course: Detox Protocol Followed, Detoxed Safely, Responded well, Discharged Condition Good, Rehab Referral Accepted Patient has Accepted a Rehab Referral to: referred to [facility] rehab - Medication Discharge Medications: Ambulatory Orders NK [No Known Home Medication] 05/03/15 - Diagnosis (1) Alcohol dependence with uncomplicated withdrawal Current Visit: Yes Status: Chronic (2) Cocaine dependence Current Visit: Yes Status: Chronic (3) Nicotine dependence Current Visit: Yes Status: Chronic Qualifiers: Nicotine product type: cigarettes Substance use status: uncomplicated Qualified Code(s): F17.210 - Nicotine dependence, cigarettes, uncomplicated (4) Cannabis abuse Current Visit: Yes Status: Chronic (5) Chronic pain of right knee Current Visit: No Status: Chronic (6) Cocaine dependence with withdrawal Current Visit: Yes Status: Chronic (7) Obesity Current Visit: Yes Status: Chronic Qualifiers: Obesity type: due to excess calories Serious obesity comorbidity presence: with serious comorbidity Body mass index: BMI 35.0-35.9 (8) Osteoarthritis of knees, bilateral Current Visit: Yes Status: Chronic Qualifiers: Osteoarthritis type: unspecified Qualified Code(s): M17.0 - Bilateral primary osteoarthritis of knee (9) Sleep apnea Current Visit: No Status: Chronic Qualifiers: Sleep apnea type: other type Qualified Code(s): G47.39 - Other sleep apnea (10) Syncope Current Visit: No Status: Chronic - AMA Did Patient Leave Against Medical Advice: No (referred to [facility])
[2018-12-15 13:11] VITALS: BP 126/72; PULSE 73; TEMP 96.8
== END 2018-12-15 13:40 | disposition other institution (70) | DRG 774 ==
LOC: YASAS 08:50 → Y6N 11:10
PROVIDERS: ADMIT Surgery; ATTEND Surgery
PROC: HZ2ZZZZ Detoxification Services for Substance Abuse Treatment (ICD-10-PCS; principal; 2018-12-12)
DX: F10.230 Alcohol dependence with withdrawal, uncomplicated (principal); F14.20 Cocaine dependence, uncomplicated; F12.10 Cannabis abuse, uncomplicated; F17.210 Nicotine dependence, cigarettes, uncomplicated; G47.39 Other sleep apnea; M17.0 Bilateral primary osteoarthritis of knee; M25.561 Pain in right knee; G89.29 Other chronic pain; E66.9 Obesity, unspecified; Z68.37 Body mass index [BMI] 37.0-37.9, adult; Z91.013 Allergy to seafood
CPT/HCPCS: 36415; 80053; 85027; 86593

== ENCOUNTER 2018-12-15 13:55 | Inpatient (IN) | payer OTHER ==
[2018-12-15] MEDS ORDERED: MAGNESIUM HYDROX 2400MG/30ML ORAL SUSPENSION 30 ML CUP PO PRN (15:21)
[2018-12-15] MEDS ORDERED: guaiFENesin 200 MG/10 ML 10 ML UNIT-DOSE CUPS PO PRN (15:21)
[2018-12-15] MEDS ORDERED: IBUPROFEN 400 MG TABLET (FP) PO PRN (15:21)
[2018-12-15] MEDS ORDERED: hydrOXYzine PAMOATE 50 MG CAPSULE (FP) PO PRN (15:21)
[2018-12-15] MEDS ORDERED: ACETAMINOPHEN 325 MG TABLET (FP) PO PRN (15:21)
[2018-12-15] MEDS ORDERED: MAG HYDROX/AL HYDROX/SIMETH 30 ML UNIT-DOSE CUP PO PRN (15:21)
[2018-12-15] MEDS ORDERED: MAGNESIUM CITRATE 300 ML BOTTLE PO PRN (15:21)
[2018-12-15] MEDS ORDERED: NICOTINE POLACRILEX 4 MG GUM BUC PRN (15:21)
[2018-12-15] MEDS ORDERED: LOPERAMIDE HCL 2 MG CAPSULE PO PRN (15:21)
[2018-12-15] MEDS ORDERED: MENTHOL/PHENOL 1 EACH UD MM PRN (15:21)
[2018-12-15] MEDS ORDERED: P-EPHED 60MG/TRIPROLIDI 2.5MG TABLET PO PRN (15:21)
--- NOTE | 2018-12-15 15:21 | HP ---
[facility] Rehab Assess/Revision - Admission History Admitted to Rehab from: [address] - Vital signs Vital Signs: Vital Signs Period Temp Pulse Resp BP Sys/Hernandez Pulse Ox Last 24 Hr 97.7 F 65 18 106/70 - Findings Detox History & Physical reviewed: Yes Concur with findings: Yes Inpatient Rehab Admission - Rehab Decision to Admit Inpatient rehab admission?: Yes - Initial Determination Are CD services needed?: Yes Free of communicable disease: Yes Not in need of hospitalization: Yes - Rehab Admission Criteria Previous failed treatment: Yes Poor recovery environment: Yes Comorbidities: Yes Lacks judgement: Yes Patient is meeting Inpatient Rehab admission criteria:: Yes
[2018-12-15] MEDS: MELATONIN 5 MG TABLETS PO PRN (21:46)
[2018-12-15] MEDS: THIAMINE HCL 100 MG TABLET (FP) PO SCH (21:46)
[2018-12-16] MEDS: NICOTINE 21 MG/24 HOURS TOPICAL PATCH TD SCH (09:46)
[2018-12-16] MEDS: PRENATAL VITAMINS W/ FOLIC ACID TABLET (FP) PO SCH (09:46)
[2018-12-16] MEDS: THIAMINE HCL 100 MG TABLET (FP) PO SCH (22:00)
[2018-12-17] MEDS: PRENATAL VITAMINS W/ FOLIC ACID TABLET (FP) PO SCH (10:43)
[2018-12-17] MEDS: NICOTINE 21 MG/24 HOURS TOPICAL PATCH TD SCH (10:43)
[2018-12-17] MEDS: THIAMINE HCL 100 MG TABLET (FP) PO SCH (21:34)
[2018-12-17] MEDS: MELATONIN 5 MG TABLETS PO PRN (21:34)
[2018-12-18] MEDS: PRENATAL VITAMINS W/ FOLIC ACID TABLET (FP) PO SCH (11:14)
[2018-12-18] MEDS: NICOTINE 21 MG/24 HOURS TOPICAL PATCH TD SCH (11:14)
[2018-12-18] MEDS: MELATONIN 5 MG TABLETS PO PRN (21:36)
[2018-12-18] MEDS: THIAMINE HCL 100 MG TABLET (FP) PO SCH (21:36)
[2018-12-19] MEDS: PRENATAL VITAMINS W/ FOLIC ACID TABLET (FP) PO SCH (10:59)
[2018-12-19] MEDS: NICOTINE 21 MG/24 HOURS TOPICAL PATCH TD SCH (10:59)
[2018-12-19] MEDS: THIAMINE HCL 100 MG TABLET (FP) PO SCH (21:41)
[2018-12-19] MEDS: MELATONIN 5 MG TABLETS PO PRN (21:41)
[2018-12-20] MEDS: PRENATAL VITAMINS W/ FOLIC ACID TABLET (FP) PO SCH (10:19)
[2018-12-20] MEDS: NICOTINE 21 MG/24 HOURS TOPICAL PATCH TD SCH (10:19)
[2018-12-20] MEDS: MELATONIN 5 MG TABLETS PO PRN (21:34)
[2018-12-20] MEDS: THIAMINE HCL 100 MG TABLET (FP) PO SCH (21:35)
[2018-12-21] MEDS: PRENATAL VITAMINS W/ FOLIC ACID TABLET (FP) PO SCH (11:07)
[2018-12-21] MEDS: NICOTINE 21 MG/24 HOURS TOPICAL PATCH TD SCH (11:07)
[2018-12-21] MEDS: MELATONIN 5 MG TABLETS PO PRN (21:35)
[2018-12-21] MEDS: THIAMINE HCL 100 MG TABLET (FP) PO SCH (21:35)
[2018-12-22] MEDS: NICOTINE 21 MG/24 HOURS TOPICAL PATCH TD SCH (10:42)
[2018-12-22] MEDS: PRENATAL VITAMINS W/ FOLIC ACID TABLET (FP) PO SCH (10:42)
[2018-12-22] MEDS: MELATONIN 5 MG TABLETS PO PRN (21:50)
[2018-12-22] MEDS: THIAMINE HCL 100 MG TABLET (FP) PO SCH (22:14)
[2018-12-23] MEDS: NICOTINE 21 MG/24 HOURS TOPICAL PATCH TD SCH (10:33)
[2018-12-23] MEDS: PRENATAL VITAMINS W/ FOLIC ACID TABLET (FP) PO SCH (10:33)
[2018-12-23] MEDS: MELATONIN 5 MG TABLETS PO PRN (21:22)
[2018-12-23] MEDS: THIAMINE HCL 100 MG TABLET (FP) PO SCH (21:23)
[2018-12-24] MEDS: PRENATAL VITAMINS W/ FOLIC ACID TABLET (FP) PO SCH (10:41)
[2018-12-24] MEDS: NICOTINE 21 MG/24 HOURS TOPICAL PATCH TD SCH (10:41)
[2018-12-24] MEDS: MELATONIN 5 MG TABLETS PO PRN (21:52)
[2018-12-24] MEDS: THIAMINE HCL 100 MG TABLET (FP) PO SCH (21:53)
[2018-12-25] MEDS: NICOTINE 21 MG/24 HOURS TOPICAL PATCH TD SCH (11:22)
[2018-12-25] MEDS: PRENATAL VITAMINS W/ FOLIC ACID TABLET (FP) PO SCH (11:22)
[2018-12-25] MEDS: MELATONIN 5 MG TABLETS PO PRN (22:08)
[2018-12-25] MEDS: THIAMINE HCL 100 MG TABLET (FP) PO SCH (22:09)
[2018-12-26] MEDS: PRENATAL VITAMINS W/ FOLIC ACID TABLET (FP) PO SCH (10:55)
[2018-12-26] MEDS: NICOTINE 21 MG/24 HOURS TOPICAL PATCH TD SCH (10:55)
[2018-12-26] MEDS: MELATONIN 5 MG TABLETS PO PRN (21:56)
[2018-12-26] MEDS: THIAMINE HCL 100 MG TABLET (FP) PO SCH (21:57)
[2018-12-27] MEDS: NICOTINE 21 MG/24 HOURS TOPICAL PATCH TD SCH (10:50)
[2018-12-27] MEDS: PRENATAL VITAMINS W/ FOLIC ACID TABLET (FP) PO SCH (10:50)
--- NOTE | 2018-12-27 18:31 | CONSULT ---
[facility] Psychiatric Consult - Data Date of interview: 12/27/18
[2018-12-27] MEDS: THIAMINE HCL 100 MG TABLET (FP) PO SCH (21:48)
[2018-12-27] MEDS: MELATONIN 5 MG TABLETS PO PRN (21:48)
[2018-12-28 07:40] VITALS: BP 105/80; PULSE 100; TEMP 98.1
--- NOTE | 2018-12-28 08:36 | PN ---
[facility] Progress Note (SOAP) Subjective: Pt is a 53 y/o male admitted to rehab for substance use disorder-alcohol, cocaine and marijuana on 12/15/18 after completing detox in this facility. Pt attended and participated in rehab groups and activities and tolerated treatment well. Pt is homeless and has been referred to [facility] rescue [facility] on [address] [place], [place]. Pt denied psych hx and s/h/i. Hx of ashanti. osteoarthtritis. Reports he has primary care at [facility] on [address] [facility]. Objective: 12/28/18 10:51 General:Well groomed Heent:Normocepahalic, perrla,eomi neck:supple Cardiac: S1 S2, rrr Lungs:cta, ashanti. Abdomen:+bs, soft. +fatty ext:no e/c/e,ambulates with steady gait, FROM. Neuro:Alert o x 3, cr II-XII intact, Vital Signs - 24 hr 12/28/18 12/28/18 12/28/18 00:30 03:30 07:39 Temperature 98.1 F Pulse Rate 100 H Respiratory 18 18 18 Rate Blood Pressure 105/80 Home Medications Medication Instructions Recorded NK [No Known Home Medication] 05/03/15 12/28/18 10:58 Assessment: 12/28/18 10:51 NAD Medically stable [facility] Inpatient Services Medical - Diagnosis (1) Alcohol dependence Qualifiers: Substance use status: uncomplicated Qualified Code(s): F10.20 - Alcohol dependence, uncomplicated Current Visit: Yes Status: Chronic (2) Cocaine dependence Current Visit: Yes Status: Chronic (3) Nicotine dependence Qualifiers: Nicotine product type: cigarettes Substance use status: uncomplicated Qualified Code(s): F17.210 - Nicotine dependence, cigarettes, uncomplicated Current Visit: Yes Status: Chronic (4) Obesity Qualifiers: Obesity type: unspecified obesity type Serious obesity comorbidity presence : without serious comorbidity Body mass index: BMI 38.0-38.9 Current Visit: Yes Status: Chronic (5) Cannabis abuse Current Visit: Yes Status: Chronic (6) Osteoarthritis of knees, bilateral Qualifiers: Osteoarthritis type: unspecified Qualified Code(s): M17.0 - Bilateral primary osteoarthritis of knee Current Visit: Yes Status: Chronic Initialized on 12/28/18 08:38 - END OF NOTE Plan: D/c pt today follow up with CD aftercare recommendations D/w pt to follow up with primary care within 2 weeks after discharge after arrival to destination above. May follow up with pcp at [facility] when possible.
== END 2018-12-28 09:05 | disposition home or self-care (01) | DRG 772 ==
LOC: YASAS 13:55 → Y5N 13:56
PROVIDERS: ADMIT Neuromusculoskeletal Medicine & OMM; ATTEND Neuromusculoskeletal Medicine & OMM
PROC: HZ42ZZZ Group Counseling for Substance Abuse Treatment, Cognitive-Behavioral (ICD-10-PCS; principal; 2018-12-15)
DX: F10.20 Alcohol dependence, uncomplicated (principal); F14.20 Cocaine dependence, uncomplicated; F12.10 Cannabis abuse, uncomplicated; F17.210 Nicotine dependence, cigarettes, uncomplicated; M17.0 Bilateral primary osteoarthritis of knee; E66.9 Obesity, unspecified; Z68.38 Body mass index [BMI] 38.0-38.9, adult; Z91.013 Allergy to seafood

== ENCOUNTER 2019-07-14 11:15 | Inpatient (IN) | payer OTHER ==
--- NOTE | 2019-07-14 12:43 | BHS.RME ---
Substance Use & Tx History - Substance Use History Alcohol Substance amount: 1pint of bacardi/2 of 24 ozs of beer Frequency of use: Daily Substance route: Oral Date of Last Use: 07/13/19 Cocaine (Crack) Substance amount: 200$ Frequency of use: Daily Substance route: Inhalation (ex: sniffing or snorting) Date of Last Use: 07/13/19 - Last Treatment Date of last treatment: 11/2018 Where was last treatment: [facility]) Physical/Psych/Mental Status - Behavior General Behavior: Increased activity (restlessness, agitation) Eye Contact: Normal - Cooperativeness Cooperativeness: Cooperative - Thinking Thought Processes: Logical Thought content: Future oriented - Physical Health Problems Is patient presently having any pain?: Yes (rosie rosado athritis) Does patient presently have any injuries (include location): No Does patient currently have a fever: No CIWA Nausea/Vomitin Muscle Tremors: 3 Anxiety: 2 Agitation: 2 Paroxysmal Sweats: 1-Minimal Palms Moist Orientation: 0-Oriented Tacttile Disturbances: 1-Very Mild Itch/Numbness Auditory Disturbances: 0-None Visual Disturbances: 0-None Headache: 2-Mild CIWA-Ar Total Score: 13
[2019-07-14 13:54] VITALS: BMI 47.4
--- NOTE | 2019-07-14 15:40 | HP ---
CIWA Score Nausea/Vomitin Muscle Tremors: 3 Anxiety: 2 Agitation: 2 Paroxysmal Sweats: 1-Minimal Palms Moist Orientation: 0-Oriented Tacttile Disturbances: 1-Very Mild Itch/Numbness Auditory Disturbances: 0-None Visual Disturbances: 0-None Headache: 2-Mild CIWA-Ar Total Score: 13 - Admission Criteria OASAS Guidelines: Admission for Medically Managed Detox: Requires at least one of the followin. CIWA greater than 12 2. Seizures within the past 24 hours 3. Delirium tremens within the past 24 hours 4. Hallucinations within the past 24 hours 5. Acute intervention needed for co occurring medical disorder 6. Acute intervention needed for co occurring psychiatric disorder 7. Severe withdrawal that cannot be handled at a lower level of care (continued vomiting, continued diarrhea, abnormal vital signs) requiring intravenous medication and/or fluids 8. Admitting History and Physical - Admission Chief Complaint: i need help to stop drinking alcohol and cocaine History of Present Illness: this 54 years old male with alcohol dependence and cocaine abused,seeking detox, history of arthritis of both knees denied syncope denied seizure longest period of sobriety 2 years plan for rehab after detox History Source: Patient - Past Medical History Musculoskeletal: Yes: Other (arthritis both knees) - Past Surgical History Past Surgical History: Yes: None - Smoking History Smoking history: Current every day smoker Have you smoked in the past 12 months: Yes Aproximately how many cigarettes per day: 8 - Alcohol/Substance Use Hx Alcohol Use: Yes History of Substance Use: reports: Cocaine - Social History Usual Living Arrangement: Yes: Alone History of Recent Travel: No Admission ROS [facility] - [facility] Chief Complaint: i need help to stop drinking alcohol and cocaine abused Allergies/Adverse Reactions: Allergies Allergy/AdvReac Type Severity Reaction Status Date / Time Fish Containing Products Allergy Severe Difficulty Verified 12/15/18 14:01 Breathing No Known Drug Allergies Allergy Verified 12/15/18 14:01 NKDA Allergy Uncoded 12/15/18 14:01 History of Present Illness: this 54 years old male with alcohol and cocaine dependence,,seeking detox last detox and rehab 12/15 denied seizure denied syncope longest sobriety 2 years Exam Limitations: No Limitations - Ebola screening Have you traveled outside of the country in the last 21 days: No Have you had contact with anyone from an Ebola affected area: No Have you been sick,other than usual withdrawal symptoms: No Do you have a fever: No - Review of Systems Constitutional: Night Sweats, Changes in sleep EENT: reports: Tearing, Nose Congestion Respiratory: reports: No Symptoms reported Cardiac: reports: No Symptoms Reported GI: reports: Nausea, Poor Appetite, Abdominal cramping : reports: No Symptoms Reported Musculoskeletal: reports: Back Pain, Muscle Pain Integumentary: reports: Dryness Neuro: reports: Headache, Tremors Endocrine: reports: No Symptoms Reported Hematology: reports: No Symptoms Reported Psychiatric: reports: No Sypmtoms Reported, Judgement Intact, Mood/Affect Appropiate, Orientated x3 Other Systems: Reviewed and Negative Patient History - Patient Medical History Hx Anemia: No Hx Asthma: No Hx Chronic Obstructive Pulmonary Disease (COPD): No Hx Cancer: No Hx Cardiac Disorders: No Hx Congestive Heart Failure: No Hx Hypertension: No Hx Hypercholesterolemia: No Hx Pacemaker: No HX Cerebrovascular Accident: No Hx Seizures: No Hx Dementia: No Hx Diabetes: No Hx Gastrointestinal Disorders: No Hx Liver Disease: No Hx Genitourinary Disorders: No Hx Sexually Transmitted Disorders: No Hx Renal Disease (ESRD): No Hx Thyroid Disease: No Hx Human Immunodeficiency Virus (HIV): No (last 2019 negative) Hx Hepatitis C: No Hx Depression: No Hx Suicide Attempt: No Hx Bipolar Disorder: No Hx Schizophrenia: No Other Medical History: no suicidal,no homicidal - Patient Surgical History Past Surgical History: No Hx Neurologic Surgery: No Hx Cataract Extraction: No Hx Cardiac Surgery: No Hx Lung Surgery: No Hx Breast Surgery: No Hx Breast Biopsy: No Hx Abdominal Surgery: No Hx Appendectomy: No Hx Cholecystectomy: No Hx Genitourinary Surgery: No Hx Section: No Hx Orthopedic Surgery: No Other Surgical History: . Anesthesia Reaction: No - PPD History Previous Implant?: Yes Documented Results: Negative w/o proof Implanted On Prior [facility] Admission?: Yes Date: 06/21/18 Results: 0MM PPD to be Administered?: Yes - Smoking Cessation Smoking history: Current every day smoker Have you smoked in the past 12 months: Yes Aproximately how many cigarettes per day: 8 Cigars Per Day: 0 Hx Chewing Tobacco Use: No Initiated information on smoking cessation: Yes 'Breaking Loose' booklet given: 07/14/19 - Substance & Tx. History Hx Alcohol Use: Yes Hx Substance Use: Yes Substance Use Type: Alcohol, Cocaine Hx Substance Use Treatment: Yes ([facility] 12/15) - Substances abused Alcohol Substance route: Oral Frequency: Daily Amount used: 1pint of bacardi/2 of 24 ozs of beer Age of first use: 14 Date of last use: 07/13/19 Cocaine Substance route: Inhalation Frequency: Daily Amount used: 200$ Age of first use: 26 Date of last use: 07/13/19 Admission Physical Exam [facility] - Vital Signs Vital Signs: Vital Signs - 24 hr 07/14/19 13:49 Temperature 97.3 F L Pulse Rate 87 Respiratory 20 Rate Blood Pressure 119/71 - Physical General Appearance: Yes: Moderate Distress, Tremorous, Irritable, Sweating, Anxious HEENTM: Yes: Normal ENT Inspection, JESSICA, Pharynx Normal Respiratory: Yes: Lungs Clear, Normal Breath Sounds, No Respiratory Distress Neck: Yes: Within Normal Limits, Supple, Trachea in good position Breast: Yes: Within Normal Limits Cardiology: Yes: Within Normal Limits, Regular Rhythm, Regular Rate, S1, S2 Abdominal: Yes: Within Normal Limits, Normal Bowel Sounds, Soft Genitourinary: Yes: Within Normal Limits Back: Yes: Muscle Spasm Musculoskeletal: Yes: Back pain, Muscle Pain Extremities: Yes: Normal Range of Motion, Tremors Neurological: Yes: cut out stitcher II-XII NML intact, Alert, Motor Strength 5/5 Integumentary: Yes: Dry Lymphatic: Yes: Within Normal Limits - Diagnostic (1) Alcohol dependence with uncomplicated withdrawal Current Visit: No Status: Chronic (2) Cocaine dependence Current Visit: No Status: Chronic (3) Nicotine dependence Current Visit: No Status: Chronic Qualifiers: Nicotine product type: cigarettes Substance use status: uncomplicated Qualified Code(s): F17.210 - Nicotine dependence, cigarettes, uncomplicated (4) Obesity Current Visit: No Status: Chronic Qualifiers: Obesity type: unspecified obesity type Serious obesity comorbidity presence : without serious comorbidity Body mass index: BMI 38.0-38.9 Comment: Sleep Apnea by history Cleared for Admission [facility] - Detox or Rehab [facility] Level of Care: Medically Managed Detox Regimen/Protocol: Librium Breathalyzer - Breathalyzer Breathalyzer: 0 Urine Drug Screen - Test Device Lot number: [id number] Expiration date: 04/23/21 - Control Is test valid?: Yes - Results Drug screen NEGATIVE: No Urine drug screen results: [facility]-Cocaine Inpatient Rehab Admission - Rehab Decision to Admit Inpatient rehab admission?: No
[2019-07-14] MEDS ORDERED: chlordiazePOXIDE HCL 25 MG CAPSULE PO PRN (15:51)
[2019-07-14] MEDS ORDERED: METHOCARBAMOL 500 MG TABLET PO PRN (15:52)
[2019-07-14] MEDS ORDERED: MAG HYDROX/AL HYDROX/SIMETH 30 ML UNIT-DOSE CUP PO PRN (15:52)
[2019-07-14] MEDS ORDERED: MENTHOL/PHENOL 1 EACH UD MM PRN (15:52)
[2019-07-14] MEDS ORDERED: ACETAMINOPHEN 325 MG TABLET (FP) PO PRN ×2 (15:52)
[2019-07-14] MEDS ORDERED: BISMUTH SUBSALICYLATE 524 MG/30 ML UD PO PRN (15:52)
[2019-07-14] MEDS ORDERED: MAGNESIUM HYDROX 2400MG/30ML ORAL SUSPENSION 30 ML CUP PO PRN (15:52)
[2019-07-14] MEDS ORDERED: MAGNESIUM CITRATE 300 ML BOTTLE PO PRN (15:52)
[2019-07-14] MEDS ORDERED: hydrOXYzine PAMOATE 25 MG CAPSULE (FP) PO PRN (15:52)
[2019-07-14] MEDS ORDERED: IBUPROFEN 400 MG TABLET (FP) PO PRN (15:52)
[2019-07-14] MEDS: chlordiazePOXIDE HCL 25 MG CAPSULE PO SCH (17:49)
[2019-07-14] MEDS ORDERED: MELATONIN 5 MG TABLETS PO PRN (22:00)
[2019-07-15] MEDS: chlordiazePOXIDE HCL 25 MG CAPSULE PO SCH ×5 (00:03→23:05)
[2019-07-15] MEDS: THIAMINE HCL 100 MG TABLET (FP) PO SCH ×2 (00:03→23:06)
[2019-07-15] MEDS: PRENATAL VITAMINS W/ FOLIC ACID TABLET (FP) PO SCH (10:54)
[2019-07-15 11:51] LABS: HEMATOCRIT 38.8 % (35.4-49); HEMOGLOBIN 12.9 GM/dL (11.7-16.9); MCHC 33.2 g/dl (32.0-35.9); MEAN CELL VOLUME 90.5 fl (80-96); MEAN PLT VOLUME 11.4 fl (7.5-11.1); PLATELET COUNT 149 K/MM3 (134-434); RBC 4.29 M/mm3 (4.00-5.60); WHITE BLOOD COUNT 5.8 K/mm3 (4.0-10.0)
[2019-07-15 11:58] LABS: ALBUMIN 3.2 g/dl (3.4-5.0); BILIRUBIN,TOTAL 0.3 mg/dL (0.2-1); BLOOD UREA NITROGEN 9.3 mg/dL (7-18); CALCIUM 8.8 mg/dL (8.5-10.1); CREATININE 0.8 mg/dL (0.55-1.3); POTASSIUM 4.4 mmol/L (3.5-5.1); TOT PROT 6.7 g/dl (6.4-8.2)
--- NOTE | 2019-07-15 12:48 | PN ---
S CIWA - CIWA Score Nausea/Vomitin-Mild Nausea/No Vomiting Muscle Tremors: 3 Anxiety: 3 Agitation: 0-Normal Activity Paroxysmal Sweats: 3 Orientation: 0-Oriented Tacttile Disturbances: 1-Very Mild Itch/Numbness Auditory Disturbances: 0-None Visual Disturbances: 0-None Headache: 1-Very Mild CIWA-Ar Total Score: 12 BHS Progress Note (SOAP) Subjective: Etoh withdrawal symptoms: Pt c/o anxiety, chills, sweating, headache and mild nausea. Objective: 07/15/19 12:47 Laboratory Tests 07/15/19 07/15/19 07:25 07:25 WBC 5.8 RBC 4.29 Hgb 12.9 Hct 38.8 MCV 90.5 MCH 30.0 MCHC 33.2 RDW 15.0 Plt Count 149 MPV 11.4 H Sodium 141 Potassium 4.4 Chloride 108 H Carbon Dioxide 29 Anion Gap 4 L BUN 9.3 Creatinine 0.8 Est GFR (CKD-EPI)AfAm 115.74 Est GFR (CKD-EPI)NonAf 99.86 Random Glucose 104 Calcium 8.8 Total Bilirubin 0.3 AST 26 ALT 46 Alkaline Phosphatase 55 Total Protein 6.7 Albumin 3.2 L Vital Signs Temperature 97.9 F 07/15/19 11:42 Pulse Rate 92 H 07/15/19 11:42 Respiratory Rate 15 07/15/19 11:42 Blood Pressure 122/70 07/15/19 11:42 O2 Sat by Pulse Oximetry (%) PE alert and oriented x 3 skin warm, truncal moisture +perrla bl gi nt, nd ext full rom, mild shakes anxious Assessment: 07/15/19 12:48 etoh withdrawal sx Plan: continue detox
[2019-07-16] MEDS: chlordiazePOXIDE HCL 25 MG CAPSULE PO SCH ×4 (05:25→23:06)
[2019-07-16] MEDS: PRENATAL VITAMINS W/ FOLIC ACID TABLET (FP) PO SCH (10:30)
--- NOTE | 2019-07-16 13:42 | PN ---
S CIWA - CIWA Score Nausea/Vomitin-Mild Nausea/No Vomiting Muscle Tremors: 2 Anxiety: 1-Mildly Anxious Agitation: 1-Slight > Activity Paroxysmal Sweats: No Perspiration Orientation: 0-Oriented Tacttile Disturbances: 1-Very Mild Itch/Numbness Auditory Disturbances: 0-None Visual Disturbances: 0-None Headache: 1-Very Mild CIWA-Ar Total Score: 7 BHS Progress Note (SOAP) Subjective: alert,irritable,anxious,interrupted sleep Objective: 07/16/19 13:41 Vital Signs Temperature 97.9 F 07/16/19 09:08 Pulse Rate 85 07/16/19 09:08 Respiratory Rate 20 07/16/19 09:08 Blood Pressure 115/77 07/16/19 09:08 O2 Sat by Pulse Oximetry (%) 07/16/19 13:41 Laboratory Last Values WBC 5.8 K/mm3 (4.0-10.0) 07/15/19 07:25 RBC 4.29 M/mm3 (4.00-5.60) 07/15/19 07:25 Hgb 12.9 GM/dL (11.7-16.9) 07/15/19 07:25 Hct 38.8 % (35.4-49) 07/15/19 07:25 MCV 90.5 fl (80-96) 07/15/19 07:25 MCH 30.0 pg (25.7-33.7) 07/15/19 07:25 MCHC 33.2 g/dl (32.0-35.9) 07/15/19 07:25 RDW 15.0 % (11.9-15.9) 07/15/19 07:25 Plt Count 149 K/MM3 (134-434) 07/15/19 07:25 MPV 11.4 fl (7.5-11.1) H 07/15/19 07:25 Sodium 141 mmol/L (136-145) 07/15/19 07:25 Potassium 4.4 mmol/L (3.5-5.1) 07/15/19 07:25 Chloride 108 mmol/L (98-107) H 07/15/19 07:25 Carbon Dioxide 29 mmol/L (21-32) 07/15/19 07:25 Anion Gap 4 MMOL/L (8-16) L 07/15/19 07:25 BUN 9.3 mg/dL (7-18) 07/15/19 07:25 Creatinine 0.8 mg/dL (0.55-1.3) 07/15/19 07:25 Est GFR (CKD-EPI)AfAm 115.74 07/15/19 07:25 Est GFR (CKD-EPI)NonAf 99.86 07/15/19 07:25 Random Glucose 104 mg/dL (74-106) 07/15/19 07:25 Calcium 8.8 mg/dL (8.5-10.1) 07/15/19 07:25 Total Bilirubin 0.3 mg/dL (0.2-1) 07/15/19 07:25 AST 26 U/L (15-37) 07/15/19 07:25 ALT 46 U/L (13-61) 07/15/19 07:25 Alkaline Phosphatase 55 U/L (45-117) 07/15/19 07:25 Total Protein 6.7 g/dl (6.4-8.2) 07/15/19 07:25 Albumin 3.2 g/dl (3.4-5.0) L 07/15/19 07:25 RPR Titer Nonreactive (NONREACTIVE) 07/15/19 07:25 Assessment: 07/16/19 13:41 withdrawal symptom Plan: continue detox librium regimen
[2019-07-16] MEDS: THIAMINE HCL 100 MG TABLET (FP) PO SCH (23:06)
[2019-07-17] MEDS ORDERED: chlordiazePOXIDE HCL 10 MG CAPSULE PO PRN
[2019-07-17] MEDS: chlordiazePOXIDE HCL 10 MG CAPSULE PO SCH ×4 (07:11→22:48)
[2019-07-17] MEDS: PRENATAL VITAMINS W/ FOLIC ACID TABLET (FP) PO SCH (10:16)
--- NOTE | 2019-07-17 11:58 | PN ---
S CIWA - CIWA Score Nausea/Vomitin-Mild Nausea/No Vomiting Muscle Tremors: 2 Anxiety: 2 Agitation: 2 Paroxysmal Sweats: No Perspiration Orientation: 0-Oriented Tacttile Disturbances: 1-Very Mild Itch/Numbness Auditory Disturbances: 0-None Visual Disturbances: 0-None Headache: 1-Very Mild CIWA-Ar Total Score: 9 S Progress Note (SOAP) Subjective: alert,irritable,anxious,interrupted sleep,tremor,pain in the body Objective: 07/17/19 11:57 Vital Signs Temperature 97.7 F 07/17/19 09:15 Pulse Rate 92 H 07/17/19 09:15 Respiratory Rate 17 07/17/19 09:15 Blood Pressure 129/76 07/17/19 09:15 O2 Sat by Pulse Oximetry (%) 07/17/19 11:57 Laboratory Last Values WBC 5.8 K/mm3 (4.0-10.0) 07/15/19 07:25 RBC 4.29 M/mm3 (4.00-5.60) 07/15/19 07:25 Hgb 12.9 GM/dL (11.7-16.9) 07/15/19 07:25 Hct 38.8 % (35.4-49) 07/15/19 07:25 MCV 90.5 fl (80-96) 07/15/19 07:25 MCH 30.0 pg (25.7-33.7) 07/15/19 07:25 MCHC 33.2 g/dl (32.0-35.9) 07/15/19 07:25 RDW 15.0 % (11.9-15.9) 07/15/19 07:25 Plt Count 149 K/MM3 (134-434) 07/15/19 07:25 MPV 11.4 fl (7.5-11.1) H 07/15/19 07:25 Sodium 141 mmol/L (136-145) 07/15/19 07:25 Potassium 4.4 mmol/L (3.5-5.1) 07/15/19 07:25 Chloride 108 mmol/L (98-107) H 07/15/19 07:25 Carbon Dioxide 29 mmol/L (21-32) 07/15/19 07:25 Anion Gap 4 MMOL/L (8-16) L 07/15/19 07:25 BUN 9.3 mg/dL (7-18) 07/15/19 07:25 Creatinine 0.8 mg/dL (0.55-1.3) 07/15/19 07:25 Est GFR (CKD-EPI)AfAm 115.74 07/15/19 07:25 Est GFR (CKD-EPI)NonAf 99.86 07/15/19 07:25 Random Glucose 104 mg/dL (74-106) 07/15/19 07:25 Calcium 8.8 mg/dL (8.5-10.1) 07/15/19 07:25 Total Bilirubin 0.3 mg/dL (0.2-1) 07/15/19 07:25 AST 26 U/L (15-37) 07/15/19 07:25 ALT 46 U/L (13-61) 07/15/19 07:25 Alkaline Phosphatase 55 U/L (45-117) 07/15/19 07:25 Total Protein 6.7 g/dl (6.4-8.2) 07/15/19 07:25 Albumin 3.2 g/dl (3.4-5.0) L 07/15/19 07:25 RPR Titer Nonreactive (NONREACTIVE) 07/15/19 07:25 Assessment: 07/17/19 11:57 withdrawal symptom Plan: continue detox librium regimen
[2019-07-17] MEDS: THIAMINE HCL 100 MG TABLET (FP) PO SCH (22:48)
[2019-07-17 23:11] VITALS: BP 102/68; PULSE 91; TEMP 97.9
[2019-07-18] MEDS ORDERED: chlordiazePOXIDE HCL 10 MG CAPSULE PO SCH (05:00)
--- NOTE | 2019-07-18 08:45 | PN ---
[facility] CIWA - CIWA Score Nausea/Vomitin-No Nausea/No Vomiting Muscle Tremors: 1-None Visible, but [place] Anxiety: 0-No Anxiety, at Ease Agitation: 0-Normal Activity Paroxysmal Sweats: No Perspiration Orientation: 0-Oriented Tacttile Disturbances: 0-None Auditory Disturbances: 0-None Visual Disturbances: 0-None Headache: 0-None Present CIWA-Ar Total Score: 1 BHS Progress Note (SOAP) Subjective: alert,no complaint Objective: 07/18/19 08:45 Vital Signs Temperature 97.9 F 07/17/19 20:38 Pulse Rate 91 H 07/17/19 20:38 Respiratory Rate 07/18/19 03:46 Blood Pressure 102/68 07/17/19 20:38 O2 Sat by Pulse Oximetry (%) Assessment: 07/18/19 08:48 detox completed,no withdrawal symptom Plan: stable for discharge today,follow upo with after care program as arrangement
--- NOTE | 2019-07-18 08:53 | DS ---
[facility] Detox Discharge Summary Admission Date: 07/14/19 Discharge Date: 07/18/19 - History Additional Comments: alert,oriented x 3 lung clear,no wheezing heart normal heart sound no abdominal pain stable for discharge,does not want to go to rehab discharge time spending 30 mins Pertinent Past History: arthritis both knees nicotine dependence - Physical Exam Results Vital Signs: Vital Signs Temperature 97.9 F 07/17/19 20:38 Pulse Rate 91 H 07/17/19 20:38 Respiratory Rate 07/18/19 03:46 Blood Pressure 102/68 07/17/19 20:38 O2 Sat by Pulse Oximetry (%) Pertinent Admission Physical Exam Findings: withdrawal signs and symptom - Treatment Hospital Course: Detox Protocol Followed, Detoxed Safely, Responded well, Discharged Condition Good Patient has Accepted a Rehab Referral to: declined - Medication Discharge Medications: Ambulatory Orders NK [No Known Home Medication] 05/03/15 - Diagnosis (1) Alcohol dependence with uncomplicated withdrawal Current Visit: No Status: Chronic (2) Cocaine dependence Current Visit: No Status: Chronic (3) Nicotine dependence Current Visit: No Status: Chronic Qualifiers: Nicotine product type: cigarettes Substance use status: uncomplicated Qualified Code(s): F17.210 - Nicotine dependence, cigarettes, uncomplicated (4) Obesity Current Visit: No Status: Chronic Qualifiers: Obesity type: unspecified obesity type Serious obesity comorbidity presence : without serious comorbidity Body mass index: BMI 38.0-38.9 (5) Arthritis of both knees Current Visit: Yes Status: Acute - AMA Did Patient Leave Against Medical Advice: No
[2019-07-19] MEDS ORDERED: chlordiazePOXIDE HCL 10 MG CAPSULE PO ONE (05:00)
== END 2019-07-18 09:05 | disposition home or self-care (01) | DRG 774 ==
LOC: YASAS 11:15 → Y6N 16:03
PROVIDERS: ADMIT Allergy & Immunology; ATTEND Allergy & Immunology
PROC: HZ2ZZZZ Detoxification Services for Substance Abuse Treatment (ICD-10-PCS; principal; 2019-07-14)
DX: F10.230 Alcohol dependence with withdrawal, uncomplicated (principal); F14.20 Cocaine dependence, uncomplicated; F17.210 Nicotine dependence, cigarettes, uncomplicated; M17.0 Bilateral primary osteoarthritis of knee; E66.01 Morbid (severe) obesity due to excess calories; Z68.42 Body mass index [BMI] 45.0-49.9, adult; Z91.013 Allergy to seafood
CPT/HCPCS: 36415; 80053; 85027; 86593

== ENCOUNTER 2020-02-01 13:57 | Inpatient (IN) | payer OTHER ==
--- NOTE | 2020-02-01 14:26 | BHS.RME ---
Substance Use & Tx History - Substance Use History Alcohol Substance amount: 2 pint Vodka Frequency of use: Daily Substance route: Oral Date of Last Use: 01/31/20 Cocaine- Powder Substance amount: $300-400 daily powder and crack Frequency of use: Daily Substance route: Inhalation (ex: sniffing or snorting), Smoking Date of Last Use: 01/31/20 Nicotine Substance amount: 10 cigs Frequency of use: Daily Substance route: Smoking Date of Last Use: 02/01/20 Physical/Psych/Mental Status - Behavior General Behavior: Decreased activity Eye Contact: Normal - Cooperativeness Cooperativeness: Cooperative - Thinking Thought Processes: Tight Thought content: Future oriented - Physical Health Problems Is patient presently having any pain?: No Does patient presently have any injuries (include location): No Does patient currently have a fever: No CIWA Nausea/Vomitin-Mild Nausea/No Vomiting Muscle Tremors: 3 Anxiety: 3 Agitation: 3 Paroxysmal Sweats: 2 Orientation: 0-Oriented Tacttile Disturbances: 0-None Auditory Disturbances: 0-None Visual Disturbances: 0-None Headache: 0-None Present CIWA-Ar Total Score: 12
[2020-02-01 16:29] VITALS: BMI 47.9
[2020-02-01] MEDS ORDERED: BACLOFEN 10 MG TABLET (FP) PO PRN (17:02)
[2020-02-01] MEDS ORDERED: MAG HYDROX/AL HYDROX/SIMETH 30 ML UNIT-DOSE CUP PO PRN (17:02)
[2020-02-01] MEDS ORDERED: MAGNESIUM HYDROX 2400MG/30ML ORAL SUSPENSION 30 ML CUP PO PRN (17:02)
[2020-02-01] MEDS ORDERED: NICOTINE POLACRILEX 2 MG GUM BUC PRN (17:02)
[2020-02-01] MEDS ORDERED: chlordiazePOXIDE HCL 25 MG CAPSULE PO PRN (17:02)
[2020-02-01] MEDS ORDERED: BISMUTH SUBSALICYLATE 524 MG/30 ML UD PO PRN (17:02)
[2020-02-01] MEDS ORDERED: IBUPROFEN 400 MG TABLET (FP) PO PRN (17:02)
[2020-02-01] MEDS ORDERED: MAGNESIUM CITRATE 300 ML BOTTLE PO PRN (17:02)
[2020-02-01] MEDS ORDERED: MENTHOL/PHENOL 1 EACH UD MM PRN (17:02)
--- NOTE | 2020-02-01 17:09 | HP ---
CIWA Score Nausea/Vomitin-Mild Nausea/No Vomiting Muscle Tremors: 3 Anxiety: 2 Agitation: 3 Paroxysmal Sweats: 3 Orientation: 0-Oriented Tacttile Disturbances: 2-Mild Itch/Numbness/Burn Auditory Disturbances: 0-None Visual Disturbances: 0-None Headache: 0-None Present CIWA-Ar Total Score: 14 - Admission Criteria OASAS Guidelines: Admission for Medically Managed Detox: Requires at least one of the followin. CIWA greater than 12 2. Seizures within the past 24 hours 3. Delirium tremens within the past 24 hours 4. Hallucinations within the past 24 hours 5. Acute intervention needed for co occurring medical disorder 6. Acute intervention needed for co occurring psychiatric disorder 7. Severe withdrawal that cannot be handled at a lower level of care (continued vomiting, continued diarrhea, abnormal vital signs) requiring intravenous medication and/or fluids 8. Patient presents the following: CIWA greater than 12 Admission Criteria Met: Admission criteria met Admitting History and Physical - Admission History Source: Patient Limitations to Obtaining History: No Limitations - Past Medical History Musculoskeletal: Yes: Other (arthritis both knees) - Past Surgical History Past Surgical History: Yes: None - Smoking History Smoking history: Current every day smoker Have you smoked in the past 12 months: Yes Aproximately how many cigarettes per day: 8 - Alcohol/Substance Use Hx Alcohol Use: Yes History of Substance Use: reports: Cocaine - Social History History of Recent Travel: No Admission ROS [facility] Chief Complaint: alcohol withdrawal symptoms Allergies/Adverse Reactions: Allergies Allergy/AdvReac Type Severity Reaction Status Date / Time Fish Containing Products Allergy Severe Difficulty Verified 02/01/20 16:41 Breathing No Known Drug Allergies Allergy Verified 02/01/20 16:41 NKDA Allergy Uncoded 02/01/20 16:41 History of Present Illness: Patient is a 54 yo AA, homeless male with hx of alcohol and cocaine dependence, is here seeking treatment for for alcohol. Patient denies hx of seizures, reports hx of ETOH syncope with last episode a few years ago. Denies any hospitalizations in the last six months. PMHX: Osteoarthritis, chronic pain and obesity. Denies psychiatric history. Last detox [facility] 07/14/19 -. Exam Limitations: No Limitations - Review of Systems Constitutional: Chills, Diaphoresis, Changes in sleep EENT: reports: No Symptoms Reported Respiratory: reports: No Symptoms reported Cardiac: reports: No Symptoms Reported GI: reports: Poor Fluid Intake, Indigestion : reports: No Symptoms Reported Musculoskeletal: reports: Joint Pain Integumentary: reports: No Symptoms Reported Neuro: reports: Tingling Endocrine: reports: Excessive Sweating Hematology: reports: No Symptoms Reported Psychiatric: reports: Orientated x3, Anxious Other Systems: Reviewed and Negative Patient History - Patient Medical History Hx Anemia: No Hx Asthma: No Hx Chronic Obstructive Pulmonary Disease (COPD): No Hx Cancer: No Hx Cardiac Disorders: No Hx Congestive Heart Failure: No Hx Hypertension: No Hx Hypercholesterolemia: No Hx Pacemaker: No HX Cerebrovascular Accident: No Hx Seizures: No Hx Dementia: No Hx Diabetes: No Hx Gastrointestinal Disorders: No Hx Liver Disease: No Hx Genitourinary Disorders: No Hx Sexually Transmitted Disorders: No Hx Renal Disease (ESRD): No Hx Thyroid Disease: No Hx Human Immunodeficiency Virus (HIV): No (last 2019 negative) Hx Hepatitis C: No Hx Depression: No Hx Suicide Attempt: No Hx Bipolar Disorder: No Hx Schizophrenia: No - Patient Surgical History Past Surgical History: No Hx Neurologic Surgery: No Hx Cataract Extraction: No Hx Cardiac Surgery: No Hx Lung Surgery: No Hx Breast Surgery: No Hx Breast Biopsy: No Hx Abdominal Surgery: No Hx Appendectomy: No Hx Cholecystectomy: No Hx Genitourinary Surgery: No Hx Section: No Hx Orthopedic Surgery: No Other Surgical History: . Anesthesia Reaction: No - PPD History Previous Implant?: No Documented Results: Negative w/proof Date: 07/16/19 Results: 0MM PPD to be Administered?: No - Reproductive History Patient : No - Smoking Cessation Smoking history: Current every day smoker Have you smoked in the past 12 months: Yes Aproximately how many cigarettes per day: 8 Cigars Per Day: 0 Hx Chewing Tobacco Use: No Initiated information on smoking cessation: Yes 'Breaking Loose' booklet given: 02/01/20 - Substance & Tx. History Hx Alcohol Use: Yes Hx Substance Use: Yes Substance Use Type: Alcohol, Cocaine Hx Substance Use Treatment: Yes (07/14/19 -07/18/19) - Substances abused Alcohol Substance route: Oral Frequency: Daily Amount used: half pint to 2 pints vodka Age of first use: 18 Date of last use: 01/31/20 Cocaine Substance route: Smoking Frequency: Daily Amount used: 3 to 4 hundred Age of first use: 28 Date of last use: 01/31/20 Admission Physical Exam [facility] - Vital Signs Vital Signs: Vital Signs - 24 hr 02/01/20 02/01/20 02/01/20 16:26 16:43 17:00 Temperature 97.8 F 97.8 F Pulse Rate 106 H 106 H Respiratory 16 16 Rate Blood Pressure 110/73 110/73 O2 Sat by Pulse 100 Oximetry (%) - Physical General Appearance: Yes: Mild Distress, Obese, Tremorous, Sweating, Anxious HEENTM: Yes: Within Normal Limits Respiratory: Yes: Chest Non-Tender, Lungs Clear, Normal Breath Sounds, No Respiratory Distress, No Accessory Muscle Use Neck: Yes: Within Normal Limits Breast: Yes: Breast Exam Deferred Cardiology: Yes: Regular Rhythm, Tachycardia Abdominal: Yes: Normal Bowel Sounds, Non Tender, Soft, Protuberent Genitourinary: Yes: Within Normal Limits Back: Yes: Normal Inspection Musculoskeletal: Yes: full range of Motion, Gait Steady, Pelvis Stable Extremities: Yes: Normal Capillary Refill, Normal Inspection, Normal Range of Motion, Non-Tender Neurological: Yes: composition worker II-XII NML intact, Fully Oriented, Alert, Motor Strength 5/5, Depressed Affect Integumentary: Yes: Within Normal Limits, Normal Color, Dry, Warm Lymphatic: Yes: Within Normal Limits - Addiitonal Findings: hx of asymptomatic prolog QTC, patient to follow up with PCP. - Diagnostic (1) Homeless Current Visit: Yes Status: Acute (2) Alcohol dependence with uncomplicated withdrawal Current Visit: Yes Status: Chronic (3) Cocaine dependence Current Visit: Yes Status: Chronic (4) Nicotine dependence Current Visit: Yes Status: Chronic Qualifiers: Nicotine product type: cigarettes Substance use status: uncomplicated Qualified Code(s): F17.210 - Nicotine dependence, cigarettes, uncomplicated (5) Sleep apnea Current Visit: Yes Status: Chronic Qualifiers: Sleep apnea type: other type Qualified Code(s): G47.39 - Other sleep apnea Cleared for Admission [facility] - Detox or Rehab [facility] Level of Care: Medically Managed Detox Regimen/Protocol: Librium Breathalyzer - Breathalyzer Breathalyzer: 0 Urine Drug Screen - Test Device Lot number: [id number] Expiration date: 12/31/21 - Control Is test valid?: Yes - Results Drug screen NEGATIVE: No Urine drug screen results: [facility]-Cocaine Inpatient Rehab Admission - Rehab Decision to Admit Inpatient rehab admission?: No
[2020-02-01] MEDS ORDERED: ONDANSETRON *ODT* 4 MG TABLET SL ONE (17:30)
[2020-02-01] MEDS: chlordiazePOXIDE HCL 25 MG CAPSULE PO SCH ×2 (18:13→22:48)
[2020-02-01] MEDS: MELATONIN 5 MG TABLETS PO SCH (22:47)
[2020-02-01] MEDS: THIAMINE HCL 100 MG TABLET (FP) PO SCH (22:47)
[2020-02-02] MEDS: chlordiazePOXIDE HCL 25 MG CAPSULE PO SCH ×4 (06:12→22:38)
[2020-02-02 10:16] LABS: HEMOGLOBIN 12.9 GM/dL (11.7-16.9); MCH 29.9 pg (25.7-33.7); MCHC 33.2 g/dl (32.0-35.9); PLATELET COUNT 154 K/MM3 (134-434); RBC 4.33 M/mm3 (4.00-5.60); WHITE BLOOD COUNT 6.4 K/mm3 (4.0-10.0)
[2020-02-02 10:27] LABS: ALBUMIN 3.5 g/dl (3.4-5.0); BLOOD UREA NITROGEN 13.3 mg/dL (7-18); CALCIUM 8.8 mg/dL (8.5-10.1); POTASSIUM 4.3 mmol/L (3.5-5.1)
[2020-02-02 10:31] LABS: BILIRUBIN,TOTAL 0.5 mg/dL (0.2-1); CREATININE 0.8 mg/dL (0.55-1.3)
[2020-02-02] MEDS: PRENATAL VITAMINS W/ FOLIC ACID TABLET (FP) PO SCH (10:34)
[2020-02-02] MEDS: NICOTINE 7 MG/24 HOURS TOPICAL PATCH TD SCH (10:35)
--- NOTE | 2020-02-02 11:38 | PN ---
S CIWA - CIWA Score Nausea/Vomitin-No Nausea/No Vomiting Muscle Tremors: 2 Anxiety: 3 Agitation: 0-Normal Activity Paroxysmal Sweats: 3 Orientation: 0-Oriented Tacttile Disturbances: 0-None Auditory Disturbances: 0-None Visual Disturbances: 0-None Headache: 2-Mild CIWA-Ar Total Score: 10 BHS Progress Note (SOAP) Subjective: c/o anxiety, headache, sweats, and shakes. Objective: 02/02/20 11:37 Vital Signs 02/02/20 02/02/20 06:26 09:25 Temperature 97.2 F L 97.8 F Pulse Rate 96 H 88 Respiratory 18 18 Rate Blood Pressure 114/79 94/56 L O2 Sat by Pulse 97 Oximetry (%) Laboratory Last Values WBC 6.4 K/mm3 (4.0-10.0) 02/02/20 07:25 RBC 4.33 M/mm3 (4.00-5.60) 02/02/20 07:25 Hgb 12.9 GM/dL (11.7-16.9) 02/02/20 07:25 Hct 39.0 % (35.4-49) 02/02/20 07:25 MCV 90.0 fl (80-96) 02/02/20 07:25 MCH 29.9 pg (25.7-33.7) 02/02/20 07:25 MCHC 33.2 g/dl (32.0-35.9) 02/02/20 07:25 RDW 16.0 % (11.9-15.9) H 02/02/20 07:25 Plt Count 154 K/MM3 (134-434) 02/02/20 07:25 MPV 11.0 fl (7.5-11.1) 02/02/20 07:25 Sodium 139 mmol/L (136-145) 02/02/20 07:25 Potassium 4.3 mmol/L (3.5-5.1) 02/02/20 07:25 Chloride 104 mmol/L (98-107) 02/02/20 07:25 Carbon Dioxide 28 mmol/L (21-32) 02/02/20 07:25 Anion Gap 6 MMOL/L (8-16) L 02/02/20 07:25 BUN 13.3 mg/dL (7-18) 02/02/20 07:25 Creatinine 0.8 mg/dL (0.55-1.3) 02/02/20 07:25 Est GFR (CKD-EPI)AfAm 115.74 02/02/20 07:25 Est GFR (CKD-EPI)NonAf 99.86 02/02/20 07:25 Random Glucose 111 mg/dL (74-106) H 02/02/20 07:25 Calcium 8.8 mg/dL (8.5-10.1) 02/02/20 07:25 Total Bilirubin 0.5 mg/dL (0.2-1) 02/02/20 07:25 AST 45 U/L (15-37) H 02/02/20 07:25 ALT 60 U/L (13-61) 02/02/20 07:25 Alkaline Phosphatase 57 U/L (45-117) 02/02/20 07:25 Total Protein 7.0 g/dl (6.4-8.2) 02/02/20 07:25 Albumin 3.5 g/dl (3.4-5.0) 02/02/20 07:25 Syphilis Serology Reactive (NONREACTIVE) A* 02/02/20 07:25 Labs noted. Assessment: 02/02/20 11:37 AOX3, in no acute respiratory distress. Full ROM, ambulating in the unit. Withdrawal symptoms. Plan: continue detox.
--- NOTE | 2020-02-02 15:00 | EKG ---
Test Reason : Blood Pressure : / mmHG Vent. Rate : 091 BPM Atrial Rate : 091 BPM P-R Int : 132 ms QRS Dur : 086 ms QT Int : 408 ms P-R-T Axes : 067 034 038 degrees QTc Int : 501 ms NORMAL SINUS RHYTHM PROLONGED QT ABNORMAL ECG WHEN COMPARED WITH ECG OF 06-APR-2017 19:41, NO SIGNIFICANT CHANGE WAS FOUND Confirmed by Lenny Manuel ([id number]) on 02/02/2020 3:00:19 PM Referred By: Confirmed By:Lenny Manuel
[2020-02-02 17:29] LABS: EPI CELLS 25 /uL (0-25.1); HYALINE CASTS 3 /uL (0-3.1); URINE APPEARANCE CLEAR; URINE BACTERIA 310 /uL (0-1359); URINE BILIRUBIN NEGATIVE (NEGATIVE); URINE COLOR YELLOW; URINE GLUCOSE (UA) NEGATIVE (NEGATIVE); URINE KETONE NEGATIVE (NEGATIVE); URINE LEUK ESTERASE 2+ (NEGATIVE); URINE NITRITE NEGATIVE (NEGATIVE); URINE PROTEIN NEGATIVE (NEGATIVE); URINE RBC 10 /uL (0-23.9); URINE WBC 341 /uL (0-25.8)
[2020-02-02] MEDS: MELATONIN 5 MG TABLETS PO SCH (22:37)
[2020-02-02] MEDS: THIAMINE HCL 100 MG TABLET (FP) PO SCH (22:38)
[2020-02-03] MEDS: chlordiazePOXIDE HCL 25 MG CAPSULE PO SCH ×4 (05:28→22:23)
--- NOTE | 2020-02-03 09:57 | PN ---
S CIWA - CIWA Score Nausea/Vomitin-Mild Nausea/No Vomiting Muscle Tremors: 1-None Visible, but [place] Anxiety: 1-Mildly Anxious Agitation: 0-Normal Activity Paroxysmal Sweats: 1-Minimal Palms Moist Orientation: 0-Oriented Tacttile Disturbances: 1-Very Mild Itch/Numbness Auditory Disturbances: 0-None Visual Disturbances: 2-Mild Sensitivity Headache: 1-Very Mild CIWA-Ar Total Score: 8 BHS Progress Note (SOAP) Subjective: 54 years old grossly obese male was admitted on 02/11/20 for alcohol withdrawal sx management treating with librium detox regiment feels tired resting in bed limited conversation with staff encourage mr genao to discuss aftercare [facility] staff Objective: 02/03/20 10:01 Vital Signs - 24 hr 02/02/20 02/02/20 02/02/20 12:46 16:51 20:38 Temperature 97.5 F L 97.1 F L 97.1 F L Pulse Rate 100 H 91 H 88 Respiratory 20 18 18 Rate Blood Pressure 146/92 120/84 123/83 O2 Sat by Pulse 96 96 99 Oximetry (%) 02/03/20 02/03/20 06:14 08:33 Temperature 98.1 F 98.4 F Pulse Rate 84 112 H Respiratory 20 20 Rate Blood Pressure 105/66 127/92 O2 Sat by Pulse 100 Oximetry (%) Vital Signs - 24 hr Laboratory Tests 02/01/20 02/02/20 02/02/20 14:50 07:25 07:25 WBC 6.4 RBC 4.33 Hgb 12.9 Hct 39.0 MCV 90.0 MCH 29.9 MCHC 33.2 RDW 16.0 H Plt Count 154 MPV 11.0 Sodium Potassium Chloride Carbon Dioxide Anion Gap BUN Creatinine Est GFR (CKD-EPI)AfAm Est GFR (CKD-EPI)NonAf Random Glucose Calcium Total Bilirubin AST ALT Alkaline Phosphatase Total Protein Albumin Urine Color Urine Appearance Urine pH Ur Specific [place] Urine Protein Urine Glucose (UA) Urine Ketones Urine Blood Urine Nitrite Urine Bilirubin Urine Urobilinogen Ur Leukocyte Esterase Urine WBC (Auto) Urine RBC (Auto) Urine Casts (Auto) U Epithel Cells (Auto) Urine Bacteria (Auto) Syphilis Serology Reactive A* RPR Titer COVID-19 (MILLI) Not detected 02/02/20 02/02/20 02/02/20 07:25 07:25 12:18 WBC RBC Hgb Hct MCV MCH MCHC RDW Plt Count MPV Sodium 139 Potassium 4.3 Chloride 104 Carbon Dioxide 28 Anion Gap 6 L BUN 13.3 Creatinine 0.8 Est GFR (CKD-EPI)AfAm 115.74 Est GFR (CKD-EPI)NonAf 99.86 Random Glucose 111 H Calcium 8.8 Total Bilirubin 0.5 AST 45 H ALT 60 Alkaline Phosphatase 57 Total Protein 7.0 Albumin 3.5 Urine Color Yellow Urine Appearance Clear Urine pH 6.0 Ur Specific [place] 1.012 Urine Protein Negative Urine Glucose (UA) Negative Urine Ketones Negative Urine Blood Trace Urine Nitrite Negative Urine Bilirubin Negative Urine Urobilinogen 1.0 Ur Leukocyte Esterase 2+ H Urine WBC (Auto) 341 Urine RBC (Auto) 10 Urine Casts (Auto) 3 U Epithel Cells (Auto) 25 Urine Bacteria (Auto) 310 Syphilis Serology RPR Titer Reactive 1:1 H D COVID-19 (MILLI) uti bactrim ds bid x 5 02/03/20 10:09 syphilis contacted treated Assessment: 02/03/20 10:10 alcohol withdrawal uti syphilis reactive Plan: librum regiment bactrim ds bid x 5 days syphilis contacted treated
[2020-02-03] MEDS: SULFAMETHOXAZOLE/TRIMETHOPRIM 800MG/160MG D.S. TABLET PO SCH ×2 (10:25→22:23)
[2020-02-03] MEDS: PRENATAL VITAMINS W/ FOLIC ACID TABLET (FP) PO SCH (10:25)
[2020-02-03] MEDS: NICOTINE 7 MG/24 HOURS TOPICAL PATCH TD SCH (10:25)
[2020-02-03] MEDS: THIAMINE HCL 100 MG TABLET (FP) PO SCH (22:23)
[2020-02-03] MEDS: MELATONIN 5 MG TABLETS PO SCH (22:23)
[2020-02-04] MEDS ORDERED: chlordiazePOXIDE HCL 10 MG CAPSULE PO PRN
[2020-02-04] MEDS: chlordiazePOXIDE HCL 10 MG CAPSULE PO SCH ×4 (05:32→22:12)
[2020-02-04] MEDS: SULFAMETHOXAZOLE/TRIMETHOPRIM 800MG/160MG D.S. TABLET PO SCH ×2 (10:21→22:13)
[2020-02-04] MEDS: PRENATAL VITAMINS W/ FOLIC ACID TABLET (FP) PO SCH (10:21)
[2020-02-04] MEDS: NICOTINE 7 MG/24 HOURS TOPICAL PATCH TD SCH (10:21)
--- NOTE | 2020-02-04 15:03 | PN ---
S CIWA - CIWA Score Nausea/Vomitin-Mild Nausea/No Vomiting Muscle Tremors: 2 Anxiety: 2 Agitation: 0-Normal Activity Paroxysmal Sweats: No Perspiration Orientation: 0-Oriented Tacttile Disturbances: 1-Very Mild Itch/Numbness Auditory Disturbances: 0-None Visual Disturbances: 0-None Headache: 0-None Present CIWA-Ar Total Score: 6 BHS Progress Note (SOAP) Subjective: 54 years old male was admitted on 02/01/20 for alcohol withdrawal sx management treating [facility]rium detox regiment ate breakfast and lunch in room resting in bed comfortably discussing nutrition and healthy eating pattern Objective: 02/04/20 15:05 Vital Signs - 24 hr 02/03/20 02/03/20 02/04/20 16:31 20:54 06:44 Temperature 97.1 F L 97.3 F L 97.2 F L Pulse Rate 94 H 94 H 90 Respiratory 16 18 18 Rate Blood Pressure 124/81 123/83 126/81 O2 Sat by Pulse 96 100 Oximetry (%) 02/04/20 02/04/20 08:46 12:50 Temperature 97.3 F L 98.2 F Pulse Rate 85 93 H Respiratory 18 20 Rate Blood Pressure 90/60 108/68 O2 Sat by Pulse 100 Oximetry (%) Laboratory Tests 02/01/20 02/02/20 02/02/20 14:50 07:25 07:25 WBC 6.4 RBC 4.33 Hgb 12.9 Hct 39.0 MCV 90.0 MCH 29.9 MCHC 33.2 RDW 16.0 H Plt Count 154 MPV 11.0 Sodium Potassium Chloride Carbon Dioxide Anion Gap BUN Creatinine Est GFR (CKD-EPI)AfAm Est GFR (CKD-EPI)NonAf Random Glucose Calcium Total Bilirubin AST ALT Alkaline Phosphatase Total Protein Albumin Urine Color Urine Appearance Urine pH Ur Specific [place] Urine Protein Urine Glucose (UA) Urine Ketones Urine Blood Urine Nitrite Urine Bilirubin Urine Urobilinogen Ur Leukocyte Esterase Urine WBC (Auto) Urine RBC (Auto) Urine Casts (Auto) U Epithel Cells (Auto) Urine Bacteria (Auto) Syphilis Serology Reactive A* RPR Titer COVID-19 (MILLI) Not detected 02/02/20 02/02/20 02/02/20 07:25 07:25 12:18 WBC RBC Hgb Hct MCV MCH MCHC RDW Plt Count MPV Sodium 139 Potassium 4.3 Chloride 104 Carbon Dioxide 28 Anion Gap 6 L BUN 13.3 Creatinine 0.8 Est GFR (CKD-EPI)AfAm 115.74 Est GFR (CKD-EPI)NonAf 99.86 Random Glucose 111 H Calcium 8.8 Total Bilirubin 0.5 AST 45 H ALT 60 Alkaline Phosphatase 57 Total Protein 7.0 Albumin 3.5 Urine Color Yellow Urine Appearance Clear Urine pH 6.0 Ur Specific [place] 1.012 Urine Protein Negative Urine Glucose (UA) Negative Urine Ketones Negative Urine Blood Trace Urine Nitrite Negative Urine Bilirubin Negative Urine Urobilinogen 1.0 Ur Leukocyte Esterase 2+ H Urine WBC (Auto) 341 Urine RBC (Auto) 10 Urine Casts (Auto) 3 U Epithel Cells (Auto) 25 Urine Bacteria (Auto) 310 Syphilis Serology RPR Titer Reactive 1:1 H D COVID-19 (MILLI) syphilis contacted treated uti bactrim ds bid continue 02/04/20 15:08 Assessment: 02/04/20 15:08 alcohol withdrawal Plan: librium regiment
[2020-02-04] MEDS: THIAMINE HCL 100 MG TABLET (FP) PO SCH (22:12)
[2020-02-04] MEDS: MELATONIN 5 MG TABLETS PO SCH (22:13)
[2020-02-05] MEDS: chlordiazePOXIDE HCL 10 MG CAPSULE PO SCH ×2 (05:24→17:57)
[2020-02-05] MEDS: PRENATAL VITAMINS W/ FOLIC ACID TABLET (FP) PO SCH (10:25)
[2020-02-05] MEDS: SULFAMETHOXAZOLE/TRIMETHOPRIM 800MG/160MG D.S. TABLET PO SCH ×2 (10:25→22:16)
[2020-02-05] MEDS: NICOTINE 7 MG/24 HOURS TOPICAL PATCH TD SCH (10:26)
--- NOTE | 2020-02-05 13:36 | PN ---
S CIWA - CIWA Score Nausea/Vomitin-No Nausea/No Vomiting Muscle Tremors: 1-None Visible, but [place] Anxiety: 1-Mildly Anxious Agitation: 0-Normal Activity Paroxysmal Sweats: No Perspiration Orientation: 0-Oriented Tacttile Disturbances: 0-None Auditory Disturbances: 0-None Visual Disturbances: 1-Very Mild Sensitivity Headache: 0-None Present CIWA-Ar Total Score: 3 BHS Progress Note (SOAP) Subjective: 54 years old male was admitted on 02/01/20 for alcohol withdrawal sx management treating with librium detox regiment feels better today less tremor mild anxiety mr genao [facility] Objective: 02/05/20 13:38 Laboratory Tests 02/01/20 02/02/20 02/02/20 14:50 07:25 07:25 WBC 6.4 RBC 4.33 Hgb 12.9 Hct 39.0 MCV 90.0 MCH 29.9 MCHC 33.2 RDW 16.0 H Plt Count 154 MPV 11.0 Sodium Potassium Chloride Carbon Dioxide Anion Gap BUN Creatinine Est GFR (CKD-EPI)AfAm Est GFR (CKD-EPI)NonAf Random Glucose Calcium Total Bilirubin AST ALT Alkaline Phosphatase Total Protein Albumin Urine Color Urine Appearance Urine pH Ur Specific [place] Urine Protein Urine Glucose (UA) Urine Ketones Urine Blood Urine Nitrite Urine Bilirubin Urine Urobilinogen Ur Leukocyte Esterase Urine WBC (Auto) Urine RBC (Auto) Urine Casts (Auto) U Epithel Cells (Auto) Urine Bacteria (Auto) Syphilis Serology Reactive A* RPR Titer COVID-19 (MILLI) Not detected 02/02/20 02/02/20 02/02/20 07:25 07:25 12:18 WBC RBC Hgb Hct MCV MCH MCHC RDW Plt Count MPV Sodium 139 Potassium 4.3 Chloride 104 Carbon Dioxide 28 Anion Gap 6 L BUN 13.3 Creatinine 0.8 Est GFR (CKD-EPI)AfAm 115.74 Est GFR (CKD-EPI)NonAf 99.86 Random Glucose 111 H Calcium 8.8 Total Bilirubin 0.5 AST 45 H ALT 60 Alkaline Phosphatase 57 Total Protein 7.0 Albumin 3.5 Urine Color Yellow Urine Appearance Clear Urine pH 6.0 Ur Specific [place] 1.012 Urine Protein Negative Urine Glucose (UA) Negative Urine Ketones Negative Urine Blood Trace Urine Nitrite Negative Urine Bilirubin Negative Urine Urobilinogen 1.0 Ur Leukocyte Esterase 2+ H Urine WBC (Auto) 341 Urine RBC (Auto) 10 Urine Casts (Auto) 3 U Epithel Cells (Auto) 25 Urine Bacteria (Auto) 310 Syphilis Serology RPR Titer Reactive 1:1 H D COVID-19 (MILLI) syphilis contacted treated Assessment: 02/05/20 13:39 alcohol withdrawal Plan: librium regiment
[2020-02-05] MEDS: MELATONIN 5 MG TABLETS PO SCH (22:16)
[2020-02-05] MEDS: THIAMINE HCL 100 MG TABLET (FP) PO SCH (22:16)
[2020-02-06] MEDS ORDERED: chlordiazePOXIDE HCL 10 MG CAPSULE PO ONE (05:00)
[2020-02-06 09:48] VITALS: BP 122/78; PULSE 86; TEMP 97.1
[2020-02-06] MEDS: NICOTINE 7 MG/24 HOURS TOPICAL PATCH TD SCH (10:48)
[2020-02-06] MEDS: PRENATAL VITAMINS W/ FOLIC ACID TABLET (FP) PO SCH (10:48)
[2020-02-06] MEDS: SULFAMETHOXAZOLE/TRIMETHOPRIM 800MG/160MG D.S. TABLET PO SCH (10:48)
--- NOTE | 2020-02-06 13:27 | DS ---
[facility] Detox Discharge Summary Admission Date: 02/01/20 Discharge Date: 02/06/20 - History Present History: Alcohol Dependence Additional Comments: 54 years old male was admitted on 02/11/20 for alcohol withdrawal sx management treated with librium detox regiment mr genao has completed the librium regiment and is tolerated well General Appearance: Yes: no Distress, Obese, mild Tremorous, no Sweating, less Anxious HEENTM: Yes: Within Normal Limits Respiratory: Yes: Chest Non-Tender, Lungs Clear, Normal Breath Sounds, No Respiratory Distress, No Accessory Muscle Use Neck: Yes: Within Normal Limits Breast: Yes: Breast Exam Deferred Cardiology: Yes: Regular Rhythm, Tachycardia Abdominal: Yes: Normal Bowel Sounds, Non Tender, Soft, Protuberent Genitourinary: Yes: Within Normal Limits Back: Yes: Normal Inspection Musculoskeletal: Yes: full range of Motion, Gait Steady, Pelvis Stable Extremities: Yes: Normal Capillary Refill, Normal Inspection, Normal Range of Motion, Non-Tender Neurological: Yes: adjunct writing instructor II-XII NML intact, Fully Oriented, Alert, Motor Strength 5/5, Depressed Affect Integumentary: Yes: Within Normal Limits, Normal Color, Dry, Warm Lymphatic: Yes: Within Normal Limits Pertinent Past History: time for discharge 35 minutes - Physical Exam Results Vital Signs: Vital Signs Temperature 97.1 F L 02/06/20 08:54 Pulse Rate 86 02/06/20 08:54 Respiratory Rate 18 02/06/20 08:54 Blood Pressure 122/78 02/06/20 08:54 O2 Sat by Pulse Oximetry (%) 95 02/06/20 06:28 Pertinent Admission Physical Exam Findings: alcohol withdrawal Laboratory Tests 02/01/20 02/02/20 02/02/20 14:50 07:25 07:25 WBC 6.4 RBC 4.33 Hgb 12.9 Hct 39.0 MCV 90.0 MCH 29.9 MCHC 33.2 RDW 16.0 H Plt Count 154 MPV 11.0 Sodium Potassium Chloride Carbon Dioxide Anion Gap BUN Creatinine Est GFR (CKD-EPI)AfAm Est GFR (CKD-EPI)NonAf Random Glucose Calcium Total Bilirubin AST ALT Alkaline Phosphatase Total Protein Albumin Urine Color Urine Appearance Urine pH Ur Specific [place] Urine Protein Urine Glucose (UA) Urine Ketones Urine Blood Urine Nitrite Urine Bilirubin Urine Urobilinogen Ur Leukocyte Esterase Urine WBC (Auto) Urine RBC (Auto) Urine Casts (Auto) U Epithel Cells (Auto) Urine Bacteria (Auto) Syphilis Serology Reactive A* RPR Titer COVID-19 (MILLI) Not detected 02/02/20 02/02/20 02/02/20 07:25 07:25 12:18 WBC RBC Hgb Hct MCV MCH MCHC RDW Plt Count MPV Sodium 139 Potassium 4.3 Chloride 104 Carbon Dioxide 28 Anion Gap 6 L BUN 13.3 Creatinine 0.8 Est GFR (CKD-EPI)AfAm 115.74 Est GFR (CKD-EPI)NonAf 99.86 Random Glucose 111 H Calcium 8.8 Total Bilirubin 0.5 AST 45 H ALT 60 Alkaline Phosphatase 57 Total Protein 7.0 Albumin 3.5 Urine Color Yellow Urine Appearance Clear Urine pH 6.0 Ur Specific [place] 1.012 Urine Protein Negative Urine Glucose (UA) Negative Urine Ketones Negative Urine Blood Trace Urine Nitrite Negative Urine Bilirubin Negative Urine Urobilinogen 1.0 Ur Leukocyte Esterase 2+ H Urine WBC (Auto) 341 Urine RBC (Auto) 10 Urine Casts (Auto) 3 U Epithel Cells (Auto) 25 Urine Bacteria (Auto) 310 Syphilis Serology RPR Titer Reactive 1:1 H D COVID-19 (MILLI) syphilis contacted treated urine culture pending - Treatment Hospital Course: Detox Protocol Followed, Detoxed Safely, Responded well, Discharged Condition Good, Rehab Referral Accepted Patient has Accepted a Re[facility] Referral to: [facility] - Medication Discharge Medications: Ambulatory Orders NK [No Known Home Medication] 05/03/15 - Diagnosis (1) Substance induced mood disorder Status: Suspected (2) Syphilis contact, treated Status: Chronic (3) Alcohol dependence with uncomplicated withdrawal Status: Acute (4) Nicotine dependence Status: Acute Qualifiers: Nicotine product type: cigarettes Substance use status: in withdrawal Qualified Code(s): F17.213 - Nicotine dependence, cigarettes, with withdrawal - AMA Did Patient Leave Against Medical Advice: No CIWA Score - CIWA Score Nausea/Vomitin-No Nausea/No Vomiting Muscle Tremors: 1-None Visible, but [place] Anxiety: 1-Mildly Anxious Agitation: 0-Normal Activity Paroxysmal Sweats: No Perspiration Orientation: 0-Oriented Tacttile Disturbances: 0-None Auditory Disturbances: 0-None Visual Disturbances: 0-None Headache: 0-None Present CIWA-Ar Total Score: 2
== END 2020-02-06 11:19 | disposition other institution (70) | DRG 774 ==
LOC: YASAS 13:57 → Y3N 16:44
PROVIDERS: ADMIT Allergy & Immunology; ATTEND Allergy & Immunology
PROC: HZ2ZZZZ Detoxification Services for Substance Abuse Treatment (ICD-10-PCS; principal; 2020-02-01)
DX: F10.230 Alcohol dependence with withdrawal, uncomplicated (principal); F14.20 Cocaine dependence, uncomplicated; F17.210 Nicotine dependence, cigarettes, uncomplicated; F19.24 Other psychoactive substance dependence with psychoactive substance-induced mood disorder; G47.39 Other sleep apnea; A53.0 Latent syphilis, unspecified as early or late; N39.0 Urinary tract infection, site not specified; M17.0 Bilateral primary osteoarthritis of knee; Z86.19 Personal history of other infectious and parasitic diseases; Z59.0 Homelessness; Z91.013 Allergy to seafood
CPT/HCPCS: 36415; 80053; 81003; 85027; 86593; 86780; 93005; 93010; U0003

== ENCOUNTER 2020-02-06 11:27 | Inpatient (IN) | payer OTHER ==
--- NOTE | 2020-02-06 13:14 | HP ---
[facility] Rehab Assess/Revision - Admission History Admitted to Rehab from: [facility] [place] - Vital signs Vital Signs: Vital Signs Period Temp Pulse Resp BP Sys/Hernandez Pulse Ox Last 24 Hr 97.5 F 89 18 130/93 - Findings Detox History & Physical reviewed: Yes Concur with findings: Yes Comments/Additional Findings: Physical. General Appearance: no apparent distress. HEENTM: normocephalic, EOMI. Respiratory: No Respiratory Distress, No Accessory Muscle Use. Neck: Supple. Abdominal: +Bowel Sounds,. Musculoskeletal: full range of Motion, Gait Steady, Pelvis Stable. Neurological hearing aid assistant II-XII NML intact, Inpatient Rehab Admission - Rehab Decision to Admit Inpatient rehab admission?: Yes - Initial Determination Are CD services needed?: Yes Free of communicable disease: Yes Not in need of hospitalization: Yes - Rehab Admission Criteria Previous failed treatment: Yes Poor recovery environment: Yes Comorbidities: Yes Lacks judgement: Yes Patient is meeting Inpatient Rehab admission criteria:: Yes
[2020-02-06] MEDS ORDERED: NICOTINE POLACRILEX 2 MG GUM BUC PRN (13:17)
[2020-02-06] MEDS ORDERED: IBUPROFEN 400 MG TABLET (FP) PO PRN (13:17)
[2020-02-06] MEDS ORDERED: hydrOXYzine PAMOATE 25 MG CAPSULE (FP) PO PRN (13:17)
[2020-02-06] MEDS ORDERED: MAGNESIUM CITRATE 300 ML BOTTLE PO PRN (13:17)
[2020-02-06] MEDS ORDERED: MAGNESIUM HYDROX 2400MG/30ML ORAL SUSPENSION 30 ML CUP PO PRN (13:17)
[2020-02-06] MEDS ORDERED: LOPERAMIDE HCL 2 MG CAPSULE PO PRN (13:17)
[2020-02-06] MEDS ORDERED: P-EPHED 60MG/TRIPROLIDI 2.5MG TABLET PO PRN (13:17)
[2020-02-06] MEDS ORDERED: ACETAMINOPHEN 325 MG TABLET (FP) PO PRN (13:17)
[2020-02-06] MEDS ORDERED: MENTHOL/PHENOL 1 EACH UD MM PRN (13:17)
[2020-02-06] MEDS ORDERED: MAG HYDROX/AL HYDROX/SIMETH 30 ML UNIT-DOSE CUP PO PRN (13:17)
[2020-02-06] MEDS ORDERED: guaiFENesin 200 MG/10 ML 10 ML UNIT-DOSE CUPS PO PRN (13:17)
[2020-02-06] MEDS: BACLOFEN 10 MG TABLET (FP) PO SCH ×2 (15:23→21:38)
[2020-02-06] MEDS: MELATONIN 5 MG TABLETS PO SCH (21:38)
[2020-02-06] MEDS: THIAMINE HCL 100 MG TABLET (FP) PO SCH (21:38)
[2020-02-07] MEDS: BACLOFEN 10 MG TABLET (FP) PO SCH ×3 (06:15→21:04)
[2020-02-07] MEDS: NICOTINE 7 MG/24 HOURS TOPICAL PATCH TD SCH (10:14)
[2020-02-07] MEDS: PRENATAL VITAMINS W/ FOLIC ACID TABLET (FP) PO SCH (10:15)
[2020-02-07] MEDS: MELATONIN 5 MG TABLETS PO SCH (21:04)
[2020-02-07] MEDS: THIAMINE HCL 100 MG TABLET (FP) PO SCH (21:04)
[2020-02-08] MEDS ORDERED: PT OWN MED DRAWER 7, Y5N ONE (04:04)
[2020-02-08] MEDS: BACLOFEN 10 MG TABLET (FP) PO SCH ×3 (07:20→21:59)
[2020-02-08] MEDS: PRENATAL VITAMINS W/ FOLIC ACID TABLET (FP) PO SCH (10:43)
[2020-02-08] MEDS: NICOTINE 7 MG/24 HOURS TOPICAL PATCH TD SCH (10:43)
[2020-02-08] MEDS: MELATONIN 5 MG TABLETS PO SCH (21:59)
[2020-02-08] MEDS: THIAMINE HCL 100 MG TABLET (FP) PO SCH (21:59)
[2020-02-09] MEDS: BACLOFEN 10 MG TABLET (FP) PO SCH ×3 (05:57→21:43)
[2020-02-09] MEDS: NICOTINE 7 MG/24 HOURS TOPICAL PATCH TD SCH (10:18)
[2020-02-09] MEDS: PRENATAL VITAMINS W/ FOLIC ACID TABLET (FP) PO SCH (10:18)
[2020-02-09] MEDS: MELATONIN 5 MG TABLETS PO SCH (21:43)
[2020-02-09] MEDS: THIAMINE HCL 100 MG TABLET (FP) PO SCH (21:43)
[2020-02-10] MEDS: BACLOFEN 10 MG TABLET (FP) PO SCH ×3 (06:01→21:46)
[2020-02-10] MEDS ORDERED: MASKS NR ONE (07:49)
[2020-02-10] MEDS: NICOTINE 7 MG/24 HOURS TOPICAL PATCH TD SCH (10:10)
[2020-02-10] MEDS: PRENATAL VITAMINS W/ FOLIC ACID TABLET (FP) PO SCH (10:10)
[2020-02-10] MEDS: MELATONIN 5 MG TABLETS PO SCH (21:46)
[2020-02-10] MEDS: THIAMINE HCL 100 MG TABLET (FP) PO SCH (21:46)
[2020-02-11] MEDS: BACLOFEN 10 MG TABLET (FP) PO SCH (06:43)
[2020-02-11] MEDS ORDERED: BACLOFEN 10 MG TABLET (FP) PO PRN (08:44)
[2020-02-11] MEDS: PRENATAL VITAMINS W/ FOLIC ACID TABLET (FP) PO SCH (10:09)
[2020-02-11] MEDS: NICOTINE 7 MG/24 HOURS TOPICAL PATCH TD SCH (10:09)
[2020-02-11] MEDS: THIAMINE HCL 100 MG TABLET (FP) PO SCH (21:38)
[2020-02-11] MEDS: MELATONIN 5 MG TABLETS PO SCH (21:38)
[2020-02-12] MEDS: PRENATAL VITAMINS W/ FOLIC ACID TABLET (FP) PO SCH (10:00)
[2020-02-12] MEDS: NICOTINE 7 MG/24 HOURS TOPICAL PATCH TD SCH (10:00)
[2020-02-12] MEDS: MELATONIN 5 MG TABLETS PO SCH (21:40)
[2020-02-12] MEDS: THIAMINE HCL 100 MG TABLET (FP) PO SCH (21:40)
[2020-02-13] MEDS: PRENATAL VITAMINS W/ FOLIC ACID TABLET (FP) PO SCH (10:49)
[2020-02-13] MEDS: NICOTINE 7 MG/24 HOURS TOPICAL PATCH TD SCH (10:49)
[2020-02-13] MEDS: MELATONIN 5 MG TABLETS PO SCH (21:57)
[2020-02-13] MEDS: THIAMINE HCL 100 MG TABLET (FP) PO SCH (21:57)
[2020-02-14] MEDS: NICOTINE 7 MG/24 HOURS TOPICAL PATCH TD SCH (10:40)
[2020-02-14] MEDS: PRENATAL VITAMINS W/ FOLIC ACID TABLET (FP) PO SCH (10:41)
[2020-02-14] MEDS: THIAMINE HCL 100 MG TABLET (FP) PO SCH (21:57)
[2020-02-14] MEDS: MELATONIN 5 MG TABLETS PO SCH (21:57)
[2020-02-15] MEDS: PRENATAL VITAMINS W/ FOLIC ACID TABLET (FP) PO SCH (10:53)
[2020-02-15] MEDS: NICOTINE 7 MG/24 HOURS TOPICAL PATCH TD SCH (10:53)
[2020-02-15] MEDS: MELATONIN 5 MG TABLETS PO SCH (21:45)
[2020-02-15] MEDS: THIAMINE HCL 100 MG TABLET (FP) PO SCH (21:45)
[2020-02-16] MEDS: PRENATAL VITAMINS W/ FOLIC ACID TABLET (FP) PO SCH (10:43)
[2020-02-16] MEDS: NICOTINE 7 MG/24 HOURS TOPICAL PATCH TD SCH (10:43)
[2020-02-16] MEDS: THIAMINE HCL 100 MG TABLET (FP) PO SCH (22:00)
[2020-02-16] MEDS: MELATONIN 5 MG TABLETS PO SCH (22:00)
[2020-02-17] MEDS: PRENATAL VITAMINS W/ FOLIC ACID TABLET (FP) PO SCH (09:27)
[2020-02-17] MEDS: NICOTINE 7 MG/24 HOURS TOPICAL PATCH TD SCH (09:27)
[2020-02-17] MEDS: MELATONIN 5 MG TABLETS PO SCH (21:47)
[2020-02-17] MEDS: THIAMINE HCL 100 MG TABLET (FP) PO SCH (21:47)
[2020-02-18] MEDS: NICOTINE 7 MG/24 HOURS TOPICAL PATCH TD SCH (10:00)
[2020-02-18] MEDS: PRENATAL VITAMINS W/ FOLIC ACID TABLET (FP) PO SCH (10:00)
[2020-02-18] MEDS: THIAMINE HCL 100 MG TABLET (FP) PO SCH (22:06)
[2020-02-18] MEDS: MELATONIN 5 MG TABLETS PO SCH (22:06)
[2020-02-19] MEDS: NICOTINE 7 MG/24 HOURS TOPICAL PATCH TD SCH (10:54)
[2020-02-19] MEDS: PRENATAL VITAMINS W/ FOLIC ACID TABLET (FP) PO SCH (10:54)
[2020-02-19] MEDS ORDERED: PT OWN MED DRAWER 7, Y5N ONE (11:24)
[2020-02-19] MEDS: MELATONIN 5 MG TABLETS PO SCH (21:49)
[2020-02-19] MEDS: THIAMINE HCL 100 MG TABLET (FP) PO SCH (21:50)
[2020-02-20] MEDS: PRENATAL VITAMINS W/ FOLIC ACID TABLET (FP) PO SCH (10:18)
[2020-02-20] MEDS: NICOTINE 7 MG/24 HOURS TOPICAL PATCH TD SCH (10:18)
[2020-02-20] MEDS: THIAMINE HCL 100 MG TABLET (FP) PO SCH (21:56)
[2020-02-20] MEDS: MELATONIN 5 MG TABLETS PO SCH (21:56)
[2020-02-21] MEDS: NICOTINE 7 MG/24 HOURS TOPICAL PATCH TD SCH (09:55)
[2020-02-21] MEDS: PRENATAL VITAMINS W/ FOLIC ACID TABLET (FP) PO SCH (09:55)
[2020-02-21] MEDS: MELATONIN 5 MG TABLETS PO SCH (21:52)
[2020-02-21] MEDS: THIAMINE HCL 100 MG TABLET (FP) PO SCH (21:52)
[2020-02-22] MEDS: PRENATAL VITAMINS W/ FOLIC ACID TABLET (FP) PO SCH (10:40)
[2020-02-22] MEDS: NICOTINE 7 MG/24 HOURS TOPICAL PATCH TD SCH (10:50)
[2020-02-22] MEDS: MELATONIN 5 MG TABLETS PO SCH (22:59)
[2020-02-22] MEDS: THIAMINE HCL 100 MG TABLET (FP) PO SCH (22:59)
[2020-02-23] MEDS: PRENATAL VITAMINS W/ FOLIC ACID TABLET (FP) PO SCH (10:40)
[2020-02-23] MEDS: NICOTINE 7 MG/24 HOURS TOPICAL PATCH TD SCH (10:40)
[2020-02-23] MEDS: MELATONIN 5 MG TABLETS PO SCH (23:02)
[2020-02-23] MEDS: THIAMINE HCL 100 MG TABLET (FP) PO SCH (23:02)
[2020-02-24] MEDS: PRENATAL VITAMINS W/ FOLIC ACID TABLET (FP) PO SCH (10:33)
[2020-02-24] MEDS: NICOTINE 7 MG/24 HOURS TOPICAL PATCH TD SCH (10:33)
[2020-02-24] MEDS: THIAMINE HCL 100 MG TABLET (FP) PO SCH (22:28)
[2020-02-24] MEDS: MELATONIN 5 MG TABLETS PO SCH (22:28)
[2020-02-24] MEDS ORDERED: PT OWN MED DRAWER 7, Y5N ONE (22:35)
[2020-02-25] MEDS: NICOTINE 7 MG/24 HOURS TOPICAL PATCH TD SCH (10:29)
[2020-02-25] MEDS: PRENATAL VITAMINS W/ FOLIC ACID TABLET (FP) PO SCH (10:29)
[2020-02-25] MEDS: THIAMINE HCL 100 MG TABLET (FP) PO SCH (21:38)
[2020-02-25] MEDS: MELATONIN 5 MG TABLETS PO SCH (21:38)
[2020-02-26] MEDS: PRENATAL VITAMINS W/ FOLIC ACID TABLET (FP) PO SCH (10:35)
[2020-02-26] MEDS: NICOTINE 7 MG/24 HOURS TOPICAL PATCH TD SCH (10:35)
[2020-02-26] MEDS: THIAMINE HCL 100 MG TABLET (FP) PO SCH (22:45)
[2020-02-26] MEDS: MELATONIN 5 MG TABLETS PO SCH (22:50)
[2020-02-27] MEDS: NICOTINE 7 MG/24 HOURS TOPICAL PATCH TD SCH (10:20)
[2020-02-27] MEDS: PRENATAL VITAMINS W/ FOLIC ACID TABLET (FP) PO SCH (10:21)
[2020-02-27] MEDS ORDERED: FLU VACCINE (FLULAVAL) PF 60 MCG/0.5 ML SYRINGE 2020-2021 IM ONE (16:00)
[2020-02-27] MEDS: MELATONIN 5 MG TABLETS PO SCH (22:21)
[2020-02-27] MEDS: THIAMINE HCL 100 MG TABLET (FP) PO SCH (22:21)
[2020-02-28 07:01] VITALS: BP 127/91; PULSE 63; TEMP 98.3
--- NOTE | 2020-02-28 09:09 | DS ---
[facility] Rehab Discharge Summary - [facility] Rehab Discharge Summary Admission Date: 02/06/20 Discharge Date: 02/28/20 - History Present History: Alcohol dependence, Cannabis dependence, Cocaine dependence Pertinent Past History: Patient is a 54 yo AA, homeless male with hx of alcohol and cocaine dependence. Patient denies hx of seizures, reports hx of ETOH syncope with last episode a few years ago. Denies any hospitalizations in the last six months. PMHX: Osteoarthritis, chronic pain and obesity. Denies psychiatric history. Last detox [facility] 07/14/19 -. - Discharge Physical Exam Vital Signs: Vital Signs Temperature 98.3 F 02/28/20 06:21 Pulse Rate 63 02/28/20 06:21 Respiratory Rate 18 02/28/20 06:21 Blood Pressure 127/91 02/28/20 06:21 O2 Sat by Pulse Oximetry (%) 96 02/28/20 06:21 Pertinent Admission Physical Exam Findings: Physical General Appearance: No apparent distress, Obese, HEENTM: normocephalic, PERRLA, EOMI, hearing grossly intact Respiratory: No Respiratory Distress, No Accessory Muscle Use Neck: supple Abdominal:+Bowel Sounds, Non Tender, Soft, Protuberent Musculoskeletal: full range of Motion, Gait Steady, Neurological: right of way agent II-XII NML intact, - Treatment Discharge Condition: Discharge condition good (Medically stable for discharge.), Rehabilitated safely (Patient [facility] Outpatient referral accepted Hospital Course: Patient attended groups, had 1:1 with his counselor; he was adherent to his medication regimen and treatment plan. He had no acute or urgent medical problems while in rehab. - Medication Discharge Medications: Ambulatory Orders NK [No Known Home Medication] 05/03/15 - Medication-Assisted Treatment (MAT) Medication-Assisted Treatment (MAT): No - Discharge Instructions Diet, activity, other medical instructions: Diet: as tolerated Activity: as tolerated Other medical instructions: Please attend AA meetings. - Diagnosis (1) Alcohol dependence with uncomplicated withdrawal Current Visit: No Status: Chronic (2) Cannabis abuse Current Visit: No Status: Chronic (3) Cocaine dependence Current Visit: No Status: Chronic - Follow-up Referral Minutes to complete discharge: 15 - AMA Did Patient Leave Against Medical Advice: No
== END 2020-02-28 08:46 | disposition home or self-care (01) | DRG 772 ==
LOC: YASAS 11:27 → Y3W 11:40
PROVIDERS: ADMIT Allergy & Immunology; ATTEND Allergy & Immunology
PROC: HZ42ZZZ Group Counseling for Substance Abuse Treatment, Cognitive-Behavioral (ICD-10-PCS; principal; 2020-02-06)
DX: F10.20 Alcohol dependence, uncomplicated (principal); F14.20 Cocaine dependence, uncomplicated; F12.20 Cannabis dependence, uncomplicated; M19.90 Unspecified osteoarthritis, unspecified site; E66.01 Morbid (severe) obesity due to excess calories; Z68.42 Body mass index [BMI] 45.0-49.9, adult; Z86.19 Personal history of other infectious and parasitic diseases; Z59.0 Homelessness; Z91.013 Allergy to seafood
CPT/HCPCS: 87086; G0008; J0475; Q2036

== ENCOUNTER 2020-09-08 11:22 | Inpatient (IN) | payer OTHER ==
[2020-09-08 12:41] VITALS: BMI 47.9
[2020-09-08] MEDS ORDERED: MAGNESIUM CITRATE 300 ML BOTTLE PO PRN (17:32)
[2020-09-08] MEDS ORDERED: P-EPHED 60MG/TRIPROLIDI 2.5MG TABLET PO PRN (17:32)
[2020-09-08] MEDS ORDERED: guaiFENesin 200 MG/10 ML 10 ML UNIT-DOSE CUPS PO PRN (17:32)
[2020-09-08] MEDS ORDERED: MAG HYDROX/AL HYDROX/SIMETH 30 ML UNIT-DOSE CUP PO PRN (17:32)
[2020-09-08] MEDS ORDERED: ACETAMINOPHEN 325 MG TABLET (FP) PO PRN (17:32)
[2020-09-08] MEDS ORDERED: MAGNESIUM HYDROX 2400MG/30ML ORAL SUSPENSION 30 ML CUP PO PRN (17:32)
[2020-09-08] MEDS ORDERED: LOPERAMIDE HCL 2 MG CAPSULE PO PRN (17:32)
[2020-09-08] MEDS ORDERED: NICOTINE POLACRILEX 2 MG GUM BC PRN (17:32)
[2020-09-08] MEDS: MELATONIN 5 MG TABLETS PO SCH (21:23)
[2020-09-08] MEDS: THIAMINE HCL 100 MG TABLET (FP) PO SCH (21:25)
[2020-09-09 09:40] LABS: HEMATOCRIT 47.1 % (35.4-49); HEMOGLOBIN 15.5 GM/dL (11.7-16.9); MCH 30.2 pg (25.7-33.7); MEAN CELL VOLUME 91.6 fl (80-96); MEAN PLT VOLUME 12.2 fl (7.5-11.1); PLATELET COUNT 212 K/MM3 (134-434); RBC 5.14 M/mm3 (4.00-5.60); RDW 15.9 % (11.9-15.9); WHITE BLOOD COUNT 8.7 K/mm3 (4.0-10.0)
[2020-09-09] MEDS: NICOTINE 14 MG/24 HOURS TOPICAL PATCH TD SCH (09:40)
[2020-09-09] MEDS: PRENATAL VITAMINS W/ FOLIC ACID TABLET (FP) PO SCH (09:40)
[2020-09-09 09:57] LABS: ALBUMIN 4.3 g/dl (3.4-5.0); BLOOD UREA NITROGEN 18.7 mg/dL (7-18); CALCIUM 9.9 mg/dL (8.5-10.1)
[2020-09-09 10:02] LABS: BILIRUBIN,TOTAL 0.5 mg/dL (0.2-1); TOT PROT 8.7 g/dl (6.4-8.2)
[2020-09-09] MEDS: IBUPROFEN 400 MG TABLET (FP) PO PRN (20:01)
[2020-09-09] MEDS: THIAMINE HCL 100 MG TABLET (FP) PO SCH (23:12)
[2020-09-09] MEDS: MELATONIN 5 MG TABLETS PO SCH (23:12)
[2020-09-10] MEDS: IBUPROFEN 400 MG TABLET (FP) PO PRN (06:37)
[2020-09-10] MEDS: PRENATAL VITAMINS W/ FOLIC ACID TABLET (FP) PO SCH (09:27)
[2020-09-10] MEDS: NICOTINE 14 MG/24 HOURS TOPICAL PATCH TD SCH (09:27)
[2020-09-10 14:43] LABS: URINE APPEARANCE CLEAR; URINE BILIRUBIN NEGATIVE (NEGATIVE); URINE COLOR DK YELLOW; URINE GLUCOSE (UA) NEGATIVE (NEGATIVE); URINE KETONE NEGATIVE (NEGATIVE); URINE LEUK ESTERASE NEGATIVE (NEGATIVE); URINE NITRITE NEGATIVE (NEGATIVE); URINE PROTEIN NEGATIVE (NEGATIVE)
[2020-09-10] MEDS: MELATONIN 5 MG TABLETS PO SCH (22:30)
[2020-09-10] MEDS: THIAMINE HCL 100 MG TABLET (FP) PO SCH (22:30)
[2020-09-11] MEDS: IBUPROFEN 400 MG TABLET (FP) PO PRN ×2 (06:21→21:13)
[2020-09-11] MEDS: NICOTINE 14 MG/24 HOURS TOPICAL PATCH TD SCH (09:19)
[2020-09-11] MEDS: PRENATAL VITAMINS W/ FOLIC ACID TABLET (FP) PO SCH (09:19)
[2020-09-11] MEDS: MELATONIN 5 MG TABLETS PO SCH (21:14)
[2020-09-11] MEDS: THIAMINE HCL 100 MG TABLET (FP) PO SCH (21:14)
[2020-09-12] MEDS: IBUPROFEN 400 MG TABLET (FP) PO PRN ×2 (06:07→16:46)
[2020-09-12] MEDS: NICOTINE 14 MG/24 HOURS TOPICAL PATCH TD SCH (09:44)
[2020-09-12] MEDS: PRENATAL VITAMINS W/ FOLIC ACID TABLET (FP) PO SCH (09:44)
[2020-09-12 14:08] LABS: SARS-CoV-2 NAA Not Detected (Not Detected)
[2020-09-12] MEDS: MELATONIN 5 MG TABLETS PO SCH (21:37)
[2020-09-12] MEDS: THIAMINE HCL 100 MG TABLET (FP) PO SCH (21:37)
[2020-09-13] MEDS: IBUPROFEN 400 MG TABLET (FP) PO PRN ×3 (06:33→23:25)
[2020-09-13] MEDS: PRENATAL VITAMINS W/ FOLIC ACID TABLET (FP) PO SCH (09:47)
[2020-09-13] MEDS: NICOTINE 14 MG/24 HOURS TOPICAL PATCH TD SCH (09:47)
[2020-09-13] MEDS: MELATONIN 5 MG TABLETS PO SCH (21:29)
[2020-09-13] MEDS: THIAMINE HCL 100 MG TABLET (FP) PO SCH (21:29)
[2020-09-14] MEDS: IBUPROFEN 400 MG TABLET (FP) PO PRN ×3 (06:27→22:23)
[2020-09-14] MEDS: PRENATAL VITAMINS W/ FOLIC ACID TABLET (FP) PO SCH (09:19)
[2020-09-14] MEDS: NICOTINE 14 MG/24 HOURS TOPICAL PATCH TD SCH (09:19)
[2020-09-14] MEDS: THIAMINE HCL 100 MG TABLET (FP) PO SCH (22:24)
[2020-09-14] MEDS: MELATONIN 5 MG TABLETS PO SCH (22:24)
[2020-09-15] MEDS: IBUPROFEN 400 MG TABLET (FP) PO PRN (06:10)
[2020-09-15] MEDS: PRENATAL VITAMINS W/ FOLIC ACID TABLET (FP) PO SCH (10:05)
[2020-09-15] MEDS: NICOTINE 14 MG/24 HOURS TOPICAL PATCH TD SCH (10:05)
[2020-09-15] MEDS: IBUPROFEN 600 MG TABLET (FP) PO PRN ×2 (13:22→21:24)
[2020-09-15] MEDS: LIDOCAINE 5% TOPICAL PATCH TP SCH (13:23)
[2020-09-15] MEDS: THIAMINE HCL 100 MG TABLET (FP) PO SCH (21:25)
[2020-09-15] MEDS: LIDOCAINE PATCH REMOVAL MC SCH (21:25)
[2020-09-15] MEDS: MELATONIN 5 MG TABLETS PO SCH (21:25)
[2020-09-16] MEDS: IBUPROFEN 600 MG TABLET (FP) PO PRN ×3 (05:49→23:05)
[2020-09-16] MEDS: NICOTINE 14 MG/24 HOURS TOPICAL PATCH TD SCH (10:33)
[2020-09-16] MEDS: LIDOCAINE 5% TOPICAL PATCH TP SCH (10:33)
[2020-09-16] MEDS: PRENATAL VITAMINS W/ FOLIC ACID TABLET (FP) PO SCH (10:34)
[2020-09-16] MEDS: MELATONIN 5 MG TABLETS PO SCH (21:20)
[2020-09-16] MEDS: THIAMINE HCL 100 MG TABLET (FP) PO SCH (21:20)
[2020-09-16] MEDS: LIDOCAINE PATCH REMOVAL MC SCH (21:21)
[2020-09-17] MEDS: IBUPROFEN 600 MG TABLET (FP) PO PRN ×3 (04:58→23:03)
[2020-09-17] MEDS: LIDOCAINE 5% TOPICAL PATCH TP SCH (10:28)
[2020-09-17] MEDS: PRENATAL VITAMINS W/ FOLIC ACID TABLET (FP) PO SCH (10:29)
[2020-09-17] MEDS: NICOTINE 14 MG/24 HOURS TOPICAL PATCH TD SCH (10:29)
[2020-09-17] MEDS: THIAMINE HCL 100 MG TABLET (FP) PO SCH (23:16)
[2020-09-17] MEDS: MELATONIN 5 MG TABLETS PO SCH (23:16)
[2020-09-17] MEDS: LIDOCAINE PATCH REMOVAL MC SCH (23:16)
[2020-09-18] MEDS: IBUPROFEN 600 MG TABLET (FP) PO PRN ×2 (06:05→17:21)
[2020-09-18] MEDS: LIDOCAINE 5% TOPICAL PATCH TP SCH (10:13)
[2020-09-18] MEDS: NICOTINE 14 MG/24 HOURS TOPICAL PATCH TD SCH (10:14)
[2020-09-18] MEDS: PRENATAL VITAMINS W/ FOLIC ACID TABLET (FP) PO SCH (10:14)
[2020-09-18] MEDS: MELATONIN 5 MG TABLETS PO SCH (21:31)
[2020-09-18] MEDS: LIDOCAINE PATCH REMOVAL MC SCH (21:31)
[2020-09-18] MEDS: THIAMINE HCL 100 MG TABLET (FP) PO SCH (21:52)
[2020-09-19] MEDS: IBUPROFEN 600 MG TABLET (FP) PO PRN ×3 (06:20→22:59)
[2020-09-19] MEDS: NICOTINE 14 MG/24 HOURS TOPICAL PATCH TD SCH (09:53)
[2020-09-19] MEDS: LIDOCAINE 5% TOPICAL PATCH TP SCH (09:53)
[2020-09-19] MEDS: PRENATAL VITAMINS W/ FOLIC ACID TABLET (FP) PO SCH (09:53)
[2020-09-19] MEDS: THIAMINE HCL 100 MG TABLET (FP) PO SCH (22:59)
[2020-09-19] MEDS: MELATONIN 5 MG TABLETS PO SCH (22:59)
[2020-09-19] MEDS: LIDOCAINE PATCH REMOVAL MC SCH (23:31)
[2020-09-20] MEDS: IBUPROFEN 600 MG TABLET (FP) PO PRN ×3 (06:15→23:35)
[2020-09-20] MEDS: LIDOCAINE 5% TOPICAL PATCH TP SCH (10:00)
[2020-09-20] MEDS: PRENATAL VITAMINS W/ FOLIC ACID TABLET (FP) PO SCH (10:00)
[2020-09-20] MEDS: NICOTINE 14 MG/24 HOURS TOPICAL PATCH TD SCH (10:00)
[2020-09-20] MEDS ORDERED: PT OWN MED DRAWER 7, Y5N ONE (13:54)
[2020-09-20] MEDS: MELATONIN 5 MG TABLETS PO SCH (23:10)
[2020-09-20] MEDS: THIAMINE HCL 100 MG TABLET (FP) PO SCH (23:10)
[2020-09-20] MEDS: LIDOCAINE PATCH REMOVAL MC SCH (23:36)
[2020-09-21] MEDS: IBUPROFEN 600 MG TABLET (FP) PO PRN ×2 (07:38→21:36)
[2020-09-21] MEDS: LIDOCAINE 5% TOPICAL PATCH TP SCH (10:01)
[2020-09-21] MEDS: NICOTINE 14 MG/24 HOURS TOPICAL PATCH TD SCH (10:01)
[2020-09-21] MEDS: PRENATAL VITAMINS W/ FOLIC ACID TABLET (FP) PO SCH (10:02)
[2020-09-21] MEDS: MELATONIN 5 MG TABLETS PO SCH (21:37)
[2020-09-21] MEDS: THIAMINE HCL 100 MG TABLET (FP) PO SCH (21:37)
[2020-09-21] MEDS: LIDOCAINE PATCH REMOVAL MC SCH (21:37)
[2020-09-22] MEDS: IBUPROFEN 600 MG TABLET (FP) PO PRN ×2 (06:43→22:48)
[2020-09-22] MEDS ORDERED: PT OWN MED DRAWER 7, Y5N ONE (08:37)
[2020-09-22] MEDS: NICOTINE 14 MG/24 HOURS TOPICAL PATCH TD SCH (09:47)
[2020-09-22] MEDS: LIDOCAINE 5% TOPICAL PATCH TP SCH (09:47)
[2020-09-22] MEDS: PRENATAL VITAMINS W/ FOLIC ACID TABLET (FP) PO SCH (09:47)
[2020-09-22] MEDS: THIAMINE HCL 100 MG TABLET (FP) PO SCH (22:49)
[2020-09-22] MEDS: LIDOCAINE PATCH REMOVAL MC SCH (22:49)
[2020-09-22] MEDS: MELATONIN 5 MG TABLETS PO SCH (22:49)
[2020-09-23] MEDS: IBUPROFEN 600 MG TABLET (FP) PO PRN ×2 (09:20→21:04)
[2020-09-23] MEDS: LIDOCAINE 5% TOPICAL PATCH TP SCH (09:21)
[2020-09-23] MEDS: NICOTINE 14 MG/24 HOURS TOPICAL PATCH TD SCH (09:21)
[2020-09-23] MEDS: PRENATAL VITAMINS W/ FOLIC ACID TABLET (FP) PO SCH (09:21)
[2020-09-23] MEDS: THIAMINE HCL 100 MG TABLET (FP) PO SCH (21:04)
[2020-09-23] MEDS: LIDOCAINE PATCH REMOVAL MC SCH (21:04)
[2020-09-23] MEDS: MELATONIN 5 MG TABLETS PO SCH (21:04)
[2020-09-24] MEDS: IBUPROFEN 600 MG TABLET (FP) PO PRN ×3 (06:01→23:22)
[2020-09-24] MEDS: LIDOCAINE 5% TOPICAL PATCH TP SCH (09:42)
[2020-09-24] MEDS: NICOTINE 14 MG/24 HOURS TOPICAL PATCH TD SCH (09:43)
[2020-09-24] MEDS: PRENATAL VITAMINS W/ FOLIC ACID TABLET (FP) PO SCH (09:43)
[2020-09-24] MEDS: LIDOCAINE PATCH REMOVAL MC SCH (23:25)
[2020-09-24] MEDS: THIAMINE HCL 100 MG TABLET (FP) PO SCH (23:25)
[2020-09-24] MEDS: MELATONIN 5 MG TABLETS PO SCH (23:25)
[2020-09-25] MEDS: IBUPROFEN 600 MG TABLET (FP) PO PRN ×2 (06:15→14:55)
[2020-09-25] MEDS: PRENATAL VITAMINS W/ FOLIC ACID TABLET (FP) PO SCH (10:00)
[2020-09-25] MEDS: LIDOCAINE 5% TOPICAL PATCH TP SCH (10:00)
[2020-09-25] MEDS: NICOTINE 14 MG/24 HOURS TOPICAL PATCH TD SCH (10:00)
[2020-09-25] MEDS: LIDOCAINE PATCH REMOVAL MC SCH (23:42)
[2020-09-25] MEDS: THIAMINE HCL 100 MG TABLET (FP) PO SCH (23:43)
[2020-09-25] MEDS: MELATONIN 5 MG TABLETS PO SCH (23:43)
[2020-09-26] MEDS: IBUPROFEN 600 MG TABLET (FP) PO PRN (05:35)
[2020-09-26 06:45] VITALS: BP 106/57; PULSE 67; TEMP 97.3
[2020-09-26] MEDS: LIDOCAINE 5% TOPICAL PATCH TP SCH (09:00)
[2020-09-26] MEDS: NICOTINE 14 MG/24 HOURS TOPICAL PATCH TD SCH (09:01)
[2020-09-26] MEDS: PRENATAL VITAMINS W/ FOLIC ACID TABLET (FP) PO SCH (09:01)
== END 2020-09-26 09:05 | disposition home or self-care (01) | DRG 772 ==
LOC: YASAS 11:22 → Y3E 17:19
PROVIDERS: ADMIT Allergy & Immunology; ATTEND Allergy & Immunology
PROC: HZ42ZZZ Group Counseling for Substance Abuse Treatment, Cognitive-Behavioral (ICD-10-PCS; principal; 2020-09-08)
DX: F10.20 Alcohol dependence, uncomplicated (principal); F14.20 Cocaine dependence, uncomplicated; F12.20 Cannabis dependence, uncomplicated; M17.0 Bilateral primary osteoarthritis of knee; E66.01 Morbid (severe) obesity due to excess calories; Z68.42 Body mass index [BMI] 45.0-49.9, adult; Z91.013 Allergy to seafood
CPT/HCPCS: 36415; 80053; 81003; 85027; 86593; 86780; 93005; 93010; C9803; U0003; U0005

== ENCOUNTER 2021-01-30 11:34 | Inpatient (IN) | payer OTHER ==
[2021-01-30 12:10] VITALS: BMI 52.7
[2021-01-30] MEDS ORDERED: ONDANSETRON *ODT* 4 MG TABLET SL PRN (12:31)
[2021-01-30] MEDS ORDERED: MENTHOL/PHENOL 1 EACH UD MM PRN (12:31)
[2021-01-30] MEDS ORDERED: ACETAMINOPHEN 325 MG TABLET (FP) PO PRN ×2 (12:31)
[2021-01-30] MEDS ORDERED: BISMUTH SUBSALICYLATE 262 MG/15 ML BTL PO PRN (12:31)
[2021-01-30] MEDS ORDERED: METHOCARBAMOL 500 MG TABLET PO PRN (12:31)
[2021-01-30] MEDS ORDERED: MAG HYDROX/AL HYDROX/SIMETH 30 ML UNIT-DOSE CUP PO PRN (12:31)
[2021-01-30] MEDS ORDERED: hydrOXYzine PAMOATE 25 MG CAPSULE (FP) PO PRN (12:31)
[2021-01-30] MEDS ORDERED: IBUPROFEN 400 MG TABLET (FP) PO PRN (12:31)
[2021-01-30] MEDS ORDERED: MAGNESIUM HYDROX 2400MG/30ML ORAL SUSPENSION 30 ML CUP PO PRN (12:31)
[2021-01-30] MEDS ORDERED: MAGNESIUM CITRATE 300 ML BOTTLE PO PRN (12:31)
[2021-01-30] MEDS: HYDROCORTISONE 0.5% TOPICAL CREAM 30 GM TUBE TP SCH ×2 (13:58→23:11)
[2021-01-30] MEDS: MELATONIN 5 MG TABLETS PO SCH (23:11)
[2021-01-30] MEDS: THIAMINE HCL 100 MG TABLET (FP) PO SCH (23:11)
[2021-01-31] MEDS: PRENATAL VITAMINS W/ FOLIC ACID TABLET (FP) PO SCH (10:05)
[2021-01-31] MEDS: HYDROCORTISONE 0.5% TOPICAL CREAM 30 GM TUBE TP SCH ×2 (10:05→22:24)
[2021-01-31 15:29] LABS: HEMATOCRIT 38.5 % (35.4-49); HEMOGLOBIN 13.1 GM/dL (11.7-16.9); MCH 30.4 pg (25.7-33.7); MCHC 33.9 g/dl (32.0-35.9); MEAN CELL VOLUME 89.7 fl (80-96); MEAN PLT VOLUME 11.5 fl (7.5-11.1); PLATELET COUNT 159 10^3/uL (134-434); RBC 4.29 M/mm3 (4.00-5.60); RDW 14.8 % (11.9-15.9); WHITE BLOOD COUNT 7.8 K/mm3 (4.0-10.0)
[2021-01-31 15:36] LABS: CALCIUM 8.9 mg/dL (8.5-10.1)
[2021-01-31 15:37] LABS: BLOOD UREA NITROGEN 14.4 mg/dL (7-18)
[2021-01-31 15:39] LABS: ALBUMIN 3.3 g/dl (3.4-5.0)
[2021-01-31 15:41] LABS: BILIRUBIN,TOTAL 0.4 mg/dL (0.2-1)
[2021-01-31 15:42] LABS: CREATININE 0.8 mg/dL (0.55-1.3)
[2021-01-31] MEDS: THIAMINE HCL 100 MG TABLET (FP) PO SCH (22:24)
[2021-01-31] MEDS: MELATONIN 5 MG TABLETS PO SCH (22:24)
[2021-02-01 10:23] VITALS: BP 111/61; PULSE 86; TEMP 98
[2021-02-01] MEDS: PRENATAL VITAMINS W/ FOLIC ACID TABLET (FP) PO SCH (11:07)
[2021-02-01] MEDS: HYDROCORTISONE 0.5% TOPICAL CREAM 30 GM TUBE TP SCH (11:08)
== END 2021-02-01 12:08 | disposition other institution (70) | DRG 774 ==
LOC: YASAS 11:34 → Y6N 12:50 → UNDOADMIN 12:50 → UNDODISIN 02-01 12:08
PROVIDERS: ADMIT Allergy & Immunology; ATTEND Allergy & Immunology
PROC: HZ2ZZZZ Detoxification Services for Substance Abuse Treatment (ICD-10-PCS; principal; 2021-01-30)
DX: F10.230 Alcohol dependence with withdrawal, uncomplicated (principal); F14.20 Cocaine dependence, uncomplicated; Z68.43 Body mass index [BMI] 50.0-59.9, adult; F17.210 Nicotine dependence, cigarettes, uncomplicated; M17.0 Bilateral primary osteoarthritis of knee; E66.01 Morbid (severe) obesity due to excess calories; Z91.013 Allergy to seafood
CPT/HCPCS: 36415; 80053; 85027; 86593; 86780; C9803; U0003; U0005

== ENCOUNTER 2021-02-01 11:15 | Inpatient (IN) | payer OTHER ==
[2021-02-01] MEDS ORDERED: NICOTINE 10 MG CARTRIDGE (INHALER) IH PRN (13:25)
[2021-02-01] MEDS ORDERED: MAG HYDROX/AL HYDROX/SIMETH 30 ML UNIT-DOSE CUP PO PRN (13:25)
[2021-02-01] MEDS ORDERED: MAGNESIUM HYDROX 2400MG/30ML ORAL SUSPENSION 30 ML CUP PO PRN (13:25)
[2021-02-01] MEDS ORDERED: IBUPROFEN 400 MG TABLET (FP) PO PRN (13:25)
[2021-02-01] MEDS ORDERED: MAGNESIUM CITRATE 300 ML BOTTLE PO PRN (13:25)
[2021-02-01] MEDS ORDERED: LOPERAMIDE HCL 2 MG CAPSULE PO PRN (13:25)
[2021-02-01] MEDS ORDERED: MENTHOL/PHENOL 1 EACH UD MM PRN (13:25)
[2021-02-01] MEDS ORDERED: guaiFENesin 200 MG/10 ML 10 ML UNIT-DOSE CUPS PO PRN (13:25)
[2021-02-01] MEDS ORDERED: P-EPHED 60MG/TRIPROLIDI 2.5MG TABLET PO PRN (13:25)
[2021-02-01] MEDS ORDERED: ACETAMINOPHEN 325 MG TABLET (FP) PO PRN (13:25)
[2021-02-01] MEDS ORDERED: hydrOXYzine PAMOATE 25 MG CAPSULE (FP) PO PRN (13:25)
[2021-02-01] MEDS: THIAMINE HCL 100 MG TABLET (FP) PO SCH (22:19)
[2021-02-01] MEDS: MELATONIN 5 MG TABLETS PO SCH (22:19)
[2021-02-02] MEDS: NICOTINE 7 MG/24 HOURS TOPICAL PATCH TD SCH (11:15)
[2021-02-02] MEDS: PRENATAL VITAMINS W/ FOLIC ACID TABLET (FP) PO SCH (11:15)
[2021-02-02] MEDS: MELATONIN 5 MG TABLETS PO SCH (23:25)
[2021-02-02] MEDS: THIAMINE HCL 100 MG TABLET (FP) PO SCH (23:25)
[2021-02-03] MEDS: NICOTINE 7 MG/24 HOURS TOPICAL PATCH TD SCH (10:37)
[2021-02-03] MEDS: PRENATAL VITAMINS W/ FOLIC ACID TABLET (FP) PO SCH (10:37)
[2021-02-03] MEDS: MELATONIN 5 MG TABLETS PO SCH (23:23)
[2021-02-03] MEDS: THIAMINE HCL 100 MG TABLET (FP) PO SCH (23:23)
[2021-02-04] MEDS: PRENATAL VITAMINS W/ FOLIC ACID TABLET (FP) PO SCH (10:26)
[2021-02-04] MEDS: NICOTINE 7 MG/24 HOURS TOPICAL PATCH TD SCH (10:26)
[2021-02-04] MEDS: MELATONIN 5 MG TABLETS PO SCH (23:51)
[2021-02-04] MEDS: THIAMINE HCL 100 MG TABLET (FP) PO SCH (23:51)
[2021-02-05] MEDS: NICOTINE 7 MG/24 HOURS TOPICAL PATCH TD SCH (12:08)
[2021-02-05] MEDS: PRENATAL VITAMINS W/ FOLIC ACID TABLET (FP) PO SCH (12:09)
[2021-02-05] MEDS: MELATONIN 5 MG TABLETS PO SCH (23:38)
[2021-02-05] MEDS: THIAMINE HCL 100 MG TABLET (FP) PO SCH (23:38)
[2021-02-06] MEDS: NICOTINE 7 MG/24 HOURS TOPICAL PATCH TD SCH (10:43)
[2021-02-06] MEDS: PRENATAL VITAMINS W/ FOLIC ACID TABLET (FP) PO SCH (10:43)
[2021-02-06] MEDS: MELATONIN 5 MG TABLETS PO SCH (23:06)
[2021-02-06] MEDS: THIAMINE HCL 100 MG TABLET (FP) PO SCH (23:06)
[2021-02-07] MEDS: NICOTINE 7 MG/24 HOURS TOPICAL PATCH TD SCH (10:30)
[2021-02-07] MEDS: PRENATAL VITAMINS W/ FOLIC ACID TABLET (FP) PO SCH (10:30)
[2021-02-07] MEDS: MELATONIN 5 MG TABLETS PO SCH (22:42)
[2021-02-07] MEDS: THIAMINE HCL 100 MG TABLET (FP) PO SCH (22:42)
[2021-02-08] MEDS: NICOTINE 7 MG/24 HOURS TOPICAL PATCH TD SCH (10:01)
[2021-02-08] MEDS: PRENATAL VITAMINS W/ FOLIC ACID TABLET (FP) PO SCH (10:01)
[2021-02-08] MEDS: MELATONIN 5 MG TABLETS PO SCH (23:05)
[2021-02-08] MEDS: THIAMINE HCL 100 MG TABLET (FP) PO SCH (23:05)
[2021-02-09] MEDS: NICOTINE 7 MG/24 HOURS TOPICAL PATCH TD SCH (10:45)
[2021-02-09] MEDS: PRENATAL VITAMINS W/ FOLIC ACID TABLET (FP) PO SCH (10:45)
[2021-02-09] MEDS: THIAMINE HCL 100 MG TABLET (FP) PO SCH (23:06)
[2021-02-09] MEDS: MELATONIN 5 MG TABLETS PO SCH (23:06)
[2021-02-10] MEDS: NICOTINE 7 MG/24 HOURS TOPICAL PATCH TD SCH (11:36)
[2021-02-10] MEDS: PRENATAL VITAMINS W/ FOLIC ACID TABLET (FP) PO SCH (11:36)
[2021-02-10] MEDS: THIAMINE HCL 100 MG TABLET (FP) PO SCH (22:25)
[2021-02-10] MEDS: MELATONIN 5 MG TABLETS PO SCH (22:25)
[2021-02-11] MEDS: NICOTINE 7 MG/24 HOURS TOPICAL PATCH TD SCH (11:39)
[2021-02-11] MEDS: PRENATAL VITAMINS W/ FOLIC ACID TABLET (FP) PO SCH (11:40)
[2021-02-11] MEDS: MELATONIN 5 MG TABLETS PO SCH (22:15)
[2021-02-11] MEDS: THIAMINE HCL 100 MG TABLET (FP) PO SCH (22:15)
[2021-02-12] MEDS: PRENATAL VITAMINS W/ FOLIC ACID TABLET (FP) PO SCH (12:34)
[2021-02-12] MEDS: NICOTINE 7 MG/24 HOURS TOPICAL PATCH TD SCH (12:34)
[2021-02-12] MEDS: MELATONIN 5 MG TABLETS PO SCH (23:17)
[2021-02-12] MEDS: THIAMINE HCL 100 MG TABLET (FP) PO SCH (23:17)
[2021-02-13] MEDS: NICOTINE 7 MG/24 HOURS TOPICAL PATCH TD SCH (11:03)
[2021-02-13] MEDS: PRENATAL VITAMINS W/ FOLIC ACID TABLET (FP) PO SCH (11:03)
[2021-02-13] MEDS: TOLNAFTATE 1% CREAM 15 GM TUBE TP SCH ×2 (12:08→21:26)
[2021-02-13] MEDS: THIAMINE HCL 100 MG TABLET (FP) PO SCH (21:26)
[2021-02-13] MEDS: MELATONIN 5 MG TABLETS PO SCH (21:26)
[2021-02-13] MEDS ORDERED: PT OWN MED DRAWER 7, Y5N ONE (21:27)
[2021-02-14] MEDS: NICOTINE 7 MG/24 HOURS TOPICAL PATCH TD SCH (10:08)
[2021-02-14] MEDS: PRENATAL VITAMINS W/ FOLIC ACID TABLET (FP) PO SCH (10:08)
[2021-02-14] MEDS: TOLNAFTATE 1% CREAM 15 GM TUBE TP SCH ×2 (10:11→21:43)
[2021-02-14] MEDS: MELATONIN 5 MG TABLETS PO SCH (21:43)
[2021-02-14] MEDS: THIAMINE HCL 100 MG TABLET (FP) PO SCH (21:44)
[2021-02-15] MEDS: TOLNAFTATE 1% CREAM 15 GM TUBE TP SCH ×2 (11:04→21:16)
[2021-02-15] MEDS: PRENATAL VITAMINS W/ FOLIC ACID TABLET (FP) PO SCH (11:04)
[2021-02-15] MEDS: NICOTINE 7 MG/24 HOURS TOPICAL PATCH TD SCH (11:04)
[2021-02-15] MEDS: THIAMINE HCL 100 MG TABLET (FP) PO SCH (21:16)
[2021-02-15] MEDS: MELATONIN 5 MG TABLETS PO SCH (21:16)
[2021-02-16] MEDS: NICOTINE 7 MG/24 HOURS TOPICAL PATCH TD SCH (11:10)
[2021-02-16] MEDS: PRENATAL VITAMINS W/ FOLIC ACID TABLET (FP) PO SCH (11:11)
[2021-02-16] MEDS: TOLNAFTATE 1% CREAM 15 GM TUBE TP SCH ×2 (11:11→22:26)
[2021-02-16] MEDS: THIAMINE HCL 100 MG TABLET (FP) PO SCH (22:24)
[2021-02-16] MEDS: MELATONIN 5 MG TABLETS PO SCH (22:25)
[2021-02-17] MEDS: TOLNAFTATE 1% CREAM 15 GM TUBE TP SCH ×2 (10:53→22:21)
[2021-02-17] MEDS: PRENATAL VITAMINS W/ FOLIC ACID TABLET (FP) PO SCH (10:53)
[2021-02-17] MEDS: NICOTINE 7 MG/24 HOURS TOPICAL PATCH TD SCH (10:53)
[2021-02-17] MEDS: THIAMINE HCL 100 MG TABLET (FP) PO SCH (22:21)
[2021-02-17] MEDS: MELATONIN 5 MG TABLETS PO SCH (22:21)
[2021-02-18] MEDS: NICOTINE 7 MG/24 HOURS TOPICAL PATCH TD SCH (11:12)
[2021-02-18] MEDS: PRENATAL VITAMINS W/ FOLIC ACID TABLET (FP) PO SCH (11:12)
[2021-02-18] MEDS: TOLNAFTATE 1% CREAM 15 GM TUBE TP SCH ×2 (11:12→22:03)
[2021-02-18] MEDS: MELATONIN 5 MG TABLETS PO SCH (22:03)
[2021-02-18] MEDS: THIAMINE HCL 100 MG TABLET (FP) PO SCH (22:03)
[2021-02-19] MEDS: TOLNAFTATE 1% CREAM 15 GM TUBE TP SCH (10:34)
[2021-02-19] MEDS: NICOTINE 7 MG/24 HOURS TOPICAL PATCH TD SCH (10:35)
[2021-02-19] MEDS: PRENATAL VITAMINS W/ FOLIC ACID TABLET (FP) PO SCH (10:35)
[2021-02-19] MEDS ORDERED: HYDROCORTISONE 1% TOPICAL CREAM 30 GM TUBE TP SCH (12:00)
[2021-02-19] MEDS: HYDROCORTISONE 1% TOPICAL CREAM 30 GM TUBE TP SCH ×2 (14:07→22:33)
[2021-02-19] MEDS: MELATONIN 5 MG TABLETS PO SCH (22:33)
[2021-02-19] MEDS: THIAMINE HCL 100 MG TABLET (FP) PO SCH (22:33)
[2021-02-20] MEDS: PRENATAL VITAMINS W/ FOLIC ACID TABLET (FP) PO SCH (10:22)
[2021-02-20] MEDS: NICOTINE 7 MG/24 HOURS TOPICAL PATCH TD SCH (10:22)
[2021-02-20] MEDS: HYDROCORTISONE 1% TOPICAL CREAM 30 GM TUBE TP SCH ×2 (10:22→21:58)
[2021-02-20] MEDS: MELATONIN 5 MG TABLETS PO SCH (21:58)
[2021-02-20] MEDS: TOLNAFTATE 1% CREAM 15 GM TUBE TP SCH (21:58)
[2021-02-20] MEDS: THIAMINE HCL 100 MG TABLET (FP) PO SCH (21:59)
[2021-02-21] MEDS: HYDROCORTISONE 1% TOPICAL CREAM 30 GM TUBE TP SCH ×2 (10:54→22:02)
[2021-02-21] MEDS: NICOTINE 7 MG/24 HOURS TOPICAL PATCH TD SCH (10:55)
[2021-02-21] MEDS: PRENATAL VITAMINS W/ FOLIC ACID TABLET (FP) PO SCH (10:55)
[2021-02-21] MEDS: TOLNAFTATE 1% CREAM 15 GM TUBE TP SCH ×2 (10:55→22:02)
[2021-02-21] MEDS: MELATONIN 5 MG TABLETS PO SCH (22:02)
[2021-02-21] MEDS: THIAMINE HCL 100 MG TABLET (FP) PO SCH (22:02)
[2021-02-22] MEDS: TOLNAFTATE 1% CREAM 15 GM TUBE TP SCH ×2 (10:51→22:27)
[2021-02-22] MEDS: NICOTINE 7 MG/24 HOURS TOPICAL PATCH TD SCH (10:51)
[2021-02-22] MEDS: PRENATAL VITAMINS W/ FOLIC ACID TABLET (FP) PO SCH (10:51)
[2021-02-22] MEDS: HYDROCORTISONE 1% TOPICAL CREAM 30 GM TUBE TP SCH ×2 (10:51→22:27)
[2021-02-22] MEDS: MELATONIN 5 MG TABLETS PO SCH (22:27)
[2021-02-22] MEDS: THIAMINE HCL 100 MG TABLET (FP) PO SCH (22:27)
[2021-02-23] MEDS ORDERED: PT OWN MED DRAWER 7, Y5N ONE (08:35)
[2021-02-23] MEDS: HYDROCORTISONE 1% TOPICAL CREAM 30 GM TUBE TP SCH ×2 (11:18→21:43)
[2021-02-23] MEDS: NICOTINE 7 MG/24 HOURS TOPICAL PATCH TD SCH (11:18)
[2021-02-23] MEDS: PRENATAL VITAMINS W/ FOLIC ACID TABLET (FP) PO SCH (11:19)
[2021-02-23] MEDS: TOLNAFTATE 1% CREAM 15 GM TUBE TP SCH ×2 (11:19→21:43)
[2021-02-23] MEDS: THIAMINE HCL 100 MG TABLET (FP) PO SCH (21:42)
[2021-02-23] MEDS: MELATONIN 5 MG TABLETS PO SCH (21:42)
[2021-02-24] MEDS: HYDROCORTISONE 1% TOPICAL CREAM 30 GM TUBE TP SCH ×2 (11:12→23:24)
[2021-02-24] MEDS: PRENATAL VITAMINS W/ FOLIC ACID TABLET (FP) PO SCH (11:12)
[2021-02-24] MEDS: TOLNAFTATE 1% CREAM 15 GM TUBE TP SCH ×2 (11:12→23:25)
[2021-02-24] MEDS: NICOTINE 7 MG/24 HOURS TOPICAL PATCH TD SCH (11:12)
[2021-02-24] MEDS: MELATONIN 5 MG TABLETS PO SCH (23:24)
[2021-02-24] MEDS: THIAMINE HCL 100 MG TABLET (FP) PO SCH (23:25)
[2021-02-25] MEDS: HYDROCORTISONE 1% TOPICAL CREAM 30 GM TUBE TP SCH ×2 (11:11→22:17)
[2021-02-25] MEDS: NICOTINE 7 MG/24 HOURS TOPICAL PATCH TD SCH (11:11)
[2021-02-25] MEDS: PRENATAL VITAMINS W/ FOLIC ACID TABLET (FP) PO SCH (11:11)
[2021-02-25] MEDS: TOLNAFTATE 1% CREAM 15 GM TUBE TP SCH ×2 (11:12→22:18)
[2021-02-25] MEDS: MELATONIN 5 MG TABLETS PO SCH (22:17)
[2021-02-25] MEDS: THIAMINE HCL 100 MG TABLET (FP) PO SCH (22:18)
[2021-02-26 06:36] VITALS: BP 122/73; PULSE 83; TEMP 97.6
[2021-02-26] MEDS: TOLNAFTATE 1% CREAM 15 GM TUBE TP SCH (10:56)
[2021-02-26] MEDS: NICOTINE 7 MG/24 HOURS TOPICAL PATCH TD SCH (10:56)
[2021-02-26] MEDS: PRENATAL VITAMINS W/ FOLIC ACID TABLET (FP) PO SCH (10:56)
[2021-02-26] MEDS: HYDROCORTISONE 1% TOPICAL CREAM 30 GM TUBE TP SCH (10:56)
== END 2021-02-26 17:53 | disposition home or self-care (01) | DRG 772 ==
LOC: YASAS 11:15 → Y5N 11:16
PROVIDERS: ADMIT Allergy & Immunology; ATTEND Allergy & Immunology
PROC: HZ42ZZZ Group Counseling for Substance Abuse Treatment, Cognitive-Behavioral (ICD-10-PCS; principal; 2021-02-01)
DX: F10.230 Alcohol dependence with withdrawal, uncomplicated (principal); F14.20 Cocaine dependence, uncomplicated; F17.210 Nicotine dependence, cigarettes, uncomplicated; L29.9 Pruritus, unspecified; R21 Rash and other nonspecific skin eruption; Z91.013 Allergy to seafood

== ENCOUNTER 2021-11-03 14:31 | Inpatient (IN) | payer OTHER ==
[2021-11-03 15:17] VITALS: BMI 50.2
[2021-11-03] MEDS ORDERED: LOPERAMIDE HCL 2 MG CAPSULE PO PRN (19:38)
[2021-11-03] MEDS ORDERED: ONDANSETRON *ODT* 4 MG TABLET SL PRN (19:38)
[2021-11-03] MEDS ORDERED: NICOTINE 10 MG CARTRIDGE (INHALER) IH PRN (19:38)
[2021-11-03] MEDS ORDERED: IBUPROFEN 400 MG TABLET (FP) PO PRN (19:38)
[2021-11-03] MEDS ORDERED: BISMUTH SUBSALICYLATE 524 MG/30 ML PO PRN (19:38)
[2021-11-03] MEDS ORDERED: ACETAMINOPHEN 325 MG TABLET (FP) PO PRN ×2 (19:38)
[2021-11-03] MEDS ORDERED: MAG HYDROX/AL HYDROX/SIMETH 30 ML UNIT-DOSE CUP PO PRN (19:38)
[2021-11-03] MEDS ORDERED: BENZOCAINE/MENTHOL (CHLORASEPTIC ) LOZENGE MM PRN (19:38)
[2021-11-03] MEDS ORDERED: IBUPROFEN 600 MG TABLET (FP) PO PRN (19:38)
[2021-11-03] MEDS ORDERED: MAGNESIUM CITRATE 300 ML BOTTLE PO PRN (19:38)
[2021-11-03] MEDS ORDERED: DICYCLOMINE HCL 10 MG CAPSULE PO PRN (19:38)
[2021-11-03] MEDS ORDERED: MAGNESIUM HYDROX 2400MG/30ML ORAL SUSPENSION 30 ML CUP PO PRN (19:38)
[2021-11-03] MEDS: METHOCARBAMOL 500 MG TABLET PO PRN (22:58)
[2021-11-03] MEDS: THIAMINE HCL 100 MG TABLET (FP) PO SCH (22:58)
[2021-11-03] MEDS: MELATONIN 5 MG TABLETS PO SCH (22:58)
[2021-11-03] MEDS: hydrOXYzine PAMOATE 25 MG CAPSULE (FP) PO SCH (22:58)
[2021-11-04] MEDS: hydrOXYzine PAMOATE 25 MG CAPSULE (FP) PO SCH ×5 (05:53→23:38)
[2021-11-04] MEDS: PRENATAL VITAMINS W/ FOLIC ACID TABLET (FP) PO SCH (10:16)
[2021-11-04] MEDS: NICOTINE 7 MG/24 HOURS TOPICAL PATCH TD SCH (10:16)
[2021-11-04] MEDS: METHOCARBAMOL 500 MG TABLET PO PRN (17:54)
[2021-11-04] MEDS: MELATONIN 5 MG TABLETS PO SCH (23:38)
[2021-11-04] MEDS: THIAMINE HCL 100 MG TABLET (FP) PO SCH (23:39)
[2021-11-05] MEDS: hydrOXYzine PAMOATE 25 MG CAPSULE (FP) PO SCH ×2 (05:44→10:46)
[2021-11-05] MEDS: METHOCARBAMOL 500 MG TABLET PO PRN (05:44)
[2021-11-05 06:51] VITALS: BP 125/66; PULSE 62; TEMP 97.9
[2021-11-05] MEDS: NICOTINE 7 MG/24 HOURS TOPICAL PATCH TD SCH (10:45)
[2021-11-05] MEDS: PRENATAL VITAMINS W/ FOLIC ACID TABLET (FP) PO SCH (10:45)
== END 2021-11-05 12:30 | disposition home or self-care (01) | DRG 774 ==
LOC: YASAS 14:31 → UNDOADMIN 20:47 → Y6N 20:47 → UNDODISIN 11-05 12:30
PROVIDERS: ADMIT Allergy & Immunology; ATTEND Surgery
PROC: HZ2ZZZZ Detoxification Services for Substance Abuse Treatment (ICD-10-PCS; principal; 2021-11-03)
DX: F10.230 Alcohol dependence with withdrawal, uncomplicated (principal); F14.20 Cocaine dependence, uncomplicated; F12.20 Cannabis dependence, uncomplicated; F17.213 Nicotine dependence, cigarettes, with withdrawal; M17.0 Bilateral primary osteoarthritis of knee; E66.01 Morbid (severe) obesity due to excess calories; Z68.43 Body mass index [BMI] 50.0-59.9, adult; Z86.19 Personal history of other infectious and parasitic diseases
CPT/HCPCS: C9803-CS; U0003; U0005

== ENCOUNTER 2022-07-28 14:55 | Inpatient (IN) | payer OTHER ==
[2022-07-28 15:19] VITALS: BMI 44.3
[2022-07-28] MEDS ORDERED: IBUPROFEN 400 MG TABLET (FP) PO PRN (17:04)
[2022-07-28] MEDS ORDERED: hydrOXYzine PAMOATE 25 MG CAPSULE (FP) PO PRN (17:04)
[2022-07-28] MEDS ORDERED: ACETAMINOPHEN 325 MG TABLET (FP) PO PRN ×2 (17:04)
[2022-07-28] MEDS ORDERED: MAGNESIUM HYDROX 2400MG/30ML ORAL SUSPENSION 30 ML CUP PO PRN (17:04)
[2022-07-28] MEDS ORDERED: POLYETHYLENE GLYCOL (HEALTHYLAX) 3350 17 GM PACKET PO PRN (17:04)
[2022-07-28] MEDS ORDERED: BENZOCAINE/MENTHOL (CHLORASEPTIC ) LOZENGE MM PRN (17:04)
[2022-07-28] MEDS ORDERED: ONDANSETRON *ODT* 4 MG TABLET SL PRN (17:04)
[2022-07-28] MEDS ORDERED: NICOTINE 10 MG CARTRIDGE (INHALER) IH PRN (17:04)
[2022-07-28] MEDS ORDERED: DICYCLOMINE HCL 10 MG CAPSULE PO PRN (17:04)
[2022-07-28] MEDS ORDERED: LOPERAMIDE HCL 2 MG CAPSULE PO PRN (17:04)
[2022-07-28] MEDS ORDERED: IBUPROFEN 600 MG TABLET (FP) PO PRN (17:04)
[2022-07-28] MEDS ORDERED: BISMUTH SUBSALICYLATE 524 MG/30 ML PO PRN (17:04)
[2022-07-28] MEDS ORDERED: MAG HYDROX/AL HYDROX/SIMETH 30 ML UNIT-DOSE CUP PO PRN (17:04)
[2022-07-28] MEDS ORDERED: NALOXONE HCL (KLOXXADO) 8 MG SPRAY NS PRN (17:04)
[2022-07-28] MEDS ORDERED: chlordiazePOXIDE HCL 25 MG CAPSULE PO PRN (17:04)
[2022-07-28] MEDS: chlordiazePOXIDE HCL 25 MG CAPSULE PO SCH ×2 (17:29→22:56)
[2022-07-28] MEDS ORDERED: chlordiazePOXIDE HCL 25 MG CAPSULE ONE (17:41)
[2022-07-28] MEDS: THIAMINE HCL 100 MG TABLET (FP) PO SCH (22:56)
[2022-07-28] MEDS: MELATONIN 5 MG TABLETS PO SCH (22:56)
[2022-07-29] MEDS: chlordiazePOXIDE HCL 25 MG CAPSULE PO SCH ×4 (05:54→22:23)
[2022-07-29] MEDS: NICOTINE 7 MG/24 HOURS TOPICAL PATCH TD SCH (10:46)
[2022-07-29] MEDS: PRENATAL VITAMINS W/ FOLIC ACID TABLET (FP) PO SCH (10:47)
[2022-07-29 14:25] LABS: HEMATOCRIT 39.7 % (35.4-49); MCH 29.9 pg (25.7-33.7); MCHC 32.7 g/dl (32.0-35.9); MEAN CELL VOLUME 91.5 fl (80-96); MEAN PLT VOLUME 10.3 fl (7.5-11.1); PLATELET COUNT 182 10^3/uL (134-434); RBC 4.34 M/mm3 (4.00-5.60); RDW 17.5 % (11.9-15.9); WHITE BLOOD COUNT 5.9 K/mm3 (4.0-10.0)
[2022-07-29 14:57] LABS: ALBUMIN 3.3 g/dl (3.4-5.0); BLOOD UREA NITROGEN 13.3 mg/dL (7-18); CALCIUM 8.7 mg/dL (8.5-10.1)
[2022-07-29 15:00] LABS: CREATININE 0.9 mg/dL (0.55-1.3)
[2022-07-29 15:02] LABS: BILIRUBIN,TOTAL 0.4 mg/dL (0.2-1); TOT PROT 6.7 g/dl (6.4-8.2)
[2022-07-29] MEDS: THIAMINE HCL 100 MG TABLET (FP) PO SCH (22:25)
[2022-07-29] MEDS: MELATONIN 5 MG TABLETS PO SCH (22:25)
[2022-07-29] MEDS: METHOCARBAMOL 500 MG TABLET PO PRN (22:28)
[2022-07-30] MEDS ORDERED: chlordiazePOXIDE HCL 25 MG CAPSULE PO SCH (05:00)
[2022-07-30] MEDS: NICOTINE 7 MG/24 HOURS TOPICAL PATCH TD SCH (10:27)
[2022-07-30] MEDS: PRENATAL VITAMINS W/ FOLIC ACID TABLET (FP) PO SCH (10:27)
[2022-07-30] MEDS: NAPROXEN 250 MG TABLET PO SCH ×2 (11:03→22:03)
[2022-07-30] MEDS: MELATONIN 5 MG TABLETS PO PRN (22:03)
[2022-07-30] MEDS: THIAMINE HCL 100 MG TABLET (FP) PO SCH (22:03)
[2022-07-31] MEDS ORDERED: chlordiazePOXIDE HCL 10 MG CAPSULE PO PRN
[2022-07-31] MEDS ORDERED: chlordiazePOXIDE HCL 10 MG CAPSULE PO SCH (05:00)
[2022-07-31] MEDS: NICOTINE 7 MG/24 HOURS TOPICAL PATCH TD SCH (10:09)
[2022-07-31] MEDS: PRENATAL VITAMINS W/ FOLIC ACID TABLET (FP) PO SCH (10:09)
[2022-07-31] MEDS: NAPROXEN 250 MG TABLET PO SCH ×2 (10:09→21:59)
[2022-07-31] MEDS: METHOCARBAMOL 500 MG TABLET PO PRN (10:10)
[2022-07-31] MEDS: THIAMINE HCL 100 MG TABLET (FP) PO SCH (21:59)
[2022-07-31] MEDS: MELATONIN 5 MG TABLETS PO PRN (22:00)
[2022-08-01] MEDS ORDERED: chlordiazePOXIDE HCL 10 MG CAPSULE PO SCH (05:00)
[2022-08-01] MEDS: PRENATAL VITAMINS W/ FOLIC ACID TABLET (FP) PO SCH (09:50)
[2022-08-01] MEDS: NAPROXEN 250 MG TABLET PO SCH ×2 (09:50→22:09)
[2022-08-01] MEDS: NICOTINE 7 MG/24 HOURS TOPICAL PATCH TD SCH (09:51)
[2022-08-01] MEDS: METHOCARBAMOL 500 MG TABLET PO PRN (09:51)
[2022-08-01 21:48] VITALS: RESP 18
[2022-08-01] MEDS: THIAMINE HCL 100 MG TABLET (FP) PO SCH (22:09)
[2022-08-02] MEDS ORDERED: chlordiazePOXIDE HCL 10 MG CAPSULE PO ONE (05:00)
[2022-08-02 09:20] VITALS: BP 118/72; PULSE 90; TEMP 97.7
[2022-08-02] MEDS: NAPROXEN 250 MG TABLET PO SCH (10:08)
[2022-08-02] MEDS: PRENATAL VITAMINS W/ FOLIC ACID TABLET (FP) PO SCH (10:09)
[2022-08-02] MEDS: NICOTINE 7 MG/24 HOURS TOPICAL PATCH TD SCH (10:09)
== END 2022-08-02 11:58 | disposition other institution (70) | DRG 774 ==
LOC: YASAS 14:55 → Y6N 17:15
PROVIDERS: ADMIT Allergy & Immunology; ATTEND Surgery
PROC: HZ2ZZZZ Detoxification Services for Substance Abuse Treatment (ICD-10-PCS; principal; 2022-07-28)
DX: F10.230 Alcohol dependence with withdrawal, uncomplicated (principal); F14.20 Cocaine dependence, uncomplicated; F17.210 Nicotine dependence, cigarettes, uncomplicated; M17.0 Bilateral primary osteoarthritis of knee; Z86.19 Personal history of other infectious and parasitic diseases
CPT/HCPCS: 36415; 80053; 85027; 86593; 86780; 87811; C9803-CS; U0003; U0005

== ENCOUNTER 2022-08-02 12:07 | Inpatient (IN) | payer OTHER ==
[2022-08-02] MEDS ORDERED: MAGNESIUM HYDROX 2400MG/30ML ORAL SUSPENSION 30 ML CUP PO PRN (12:44)
[2022-08-02] MEDS ORDERED: BENZOCAINE/MENTHOL (CHLORASEPTIC ) LOZENGE MM PRN (12:44)
[2022-08-02] MEDS ORDERED: NICOTINE 10 MG CARTRIDGE (INHALER) IH PRN (12:44)
[2022-08-02] MEDS ORDERED: LOPERAMIDE HCL 2 MG CAPSULE PO PRN (12:44)
[2022-08-02] MEDS ORDERED: POLYETHYLENE GLYCOL (HEALTHYLAX) 3350 17 GM PACKET PO PRN (12:44)
[2022-08-02] MEDS ORDERED: IBUPROFEN 400 MG TABLET (FP) PO PRN (12:44)
[2022-08-02] MEDS ORDERED: P-EPHED 60MG/TRIPROLIDI 2.5MG TABLET PO PRN (12:44)
[2022-08-02] MEDS ORDERED: ACETAMINOPHEN 325 MG TABLET (FP) PO PRN (12:44)
[2022-08-02] MEDS ORDERED: guaiFENesin 200 MG/10 ML 10 ML UNIT-DOSE CUPS PO PRN (12:44)
[2022-08-02] MEDS ORDERED: hydrOXYzine PAMOATE 25 MG CAPSULE (FP) PO PRN (12:44)
[2022-08-02] MEDS ORDERED: NAPROXEN 250 MG TABLET PO PRN (13:20)
[2022-08-02] MEDS: MELATONIN 5 MG TABLETS PO SCH (21:16)
[2022-08-02] MEDS: THIAMINE HCL 100 MG TABLET (FP) PO SCH (21:16)
[2022-08-03] MEDS: PRENATAL VITAMINS W/ FOLIC ACID TABLET (FP) PO SCH (09:26)
[2022-08-03] MEDS: NICOTINE 7 MG/24 HOURS TOPICAL PATCH TD SCH (09:27)
[2022-08-03] MEDS: THIAMINE HCL 100 MG TABLET (FP) PO SCH (21:02)
[2022-08-03] MEDS: MELATONIN 5 MG TABLETS PO SCH (21:02)
[2022-08-04] MEDS: PRENATAL VITAMINS W/ FOLIC ACID TABLET (FP) PO SCH (09:45)
[2022-08-04] MEDS: NICOTINE 7 MG/24 HOURS TOPICAL PATCH TD SCH (09:45)
[2022-08-04] MEDS: THIAMINE HCL 100 MG TABLET (FP) PO SCH (21:12)
[2022-08-04] MEDS: MELATONIN 5 MG TABLETS PO SCH (21:12)
[2022-08-05] MEDS: NICOTINE 7 MG/24 HOURS TOPICAL PATCH TD SCH (09:38)
[2022-08-05] MEDS: PRENATAL VITAMINS W/ FOLIC ACID TABLET (FP) PO SCH (09:38)
[2022-08-05] MEDS: MELATONIN 5 MG TABLETS PO SCH (22:55)
[2022-08-05] MEDS: THIAMINE HCL 100 MG TABLET (FP) PO SCH (22:55)
[2022-08-06] MEDS: MAG HYDROX/AL HYDROX/SIMETH 30 ML UNIT-DOSE CUP PO PRN ×2 (01:04→20:39)
[2022-08-06] MEDS: PRENATAL VITAMINS W/ FOLIC ACID TABLET (FP) PO SCH (10:09)
[2022-08-06] MEDS: NICOTINE 7 MG/24 HOURS TOPICAL PATCH TD SCH (10:09)
[2022-08-06] MEDS: THIAMINE HCL 100 MG TABLET (FP) PO SCH (21:35)
[2022-08-06] MEDS: MELATONIN 5 MG TABLETS PO SCH (21:35)
[2022-08-07] MEDS: PRENATAL VITAMINS W/ FOLIC ACID TABLET (FP) PO SCH (11:16)
[2022-08-07] MEDS: NICOTINE 7 MG/24 HOURS TOPICAL PATCH TD SCH (11:16)
[2022-08-07] MEDS: MELATONIN 5 MG TABLETS PO SCH (21:07)
[2022-08-07] MEDS: THIAMINE HCL 100 MG TABLET (FP) PO SCH (21:08)
[2022-08-08] MEDS: NICOTINE 7 MG/24 HOURS TOPICAL PATCH TD SCH (10:17)
[2022-08-08] MEDS: PRENATAL VITAMINS W/ FOLIC ACID TABLET (FP) PO SCH (10:17)
[2022-08-08] MEDS: MAG HYDROX/AL HYDROX/SIMETH 30 ML UNIT-DOSE CUP PO PRN (19:50)
[2022-08-08] MEDS: THIAMINE HCL 100 MG TABLET (FP) PO SCH (22:11)
[2022-08-08] MEDS: MELATONIN 5 MG TABLETS PO SCH (22:11)
[2022-08-09] MEDS: NICOTINE 7 MG/24 HOURS TOPICAL PATCH TD SCH (10:24)
[2022-08-09] MEDS: PRENATAL VITAMINS W/ FOLIC ACID TABLET (FP) PO SCH (10:25)
[2022-08-09] MEDS: THIAMINE HCL 100 MG TABLET (FP) PO SCH (22:54)
[2022-08-09] MEDS: MELATONIN 5 MG TABLETS PO SCH (22:54)
[2022-08-10] MEDS: PRENATAL VITAMINS W/ FOLIC ACID TABLET (FP) PO SCH (10:41)
[2022-08-10] MEDS: NICOTINE 7 MG/24 HOURS TOPICAL PATCH TD SCH (10:41)
[2022-08-10] MEDS: THIAMINE HCL 100 MG TABLET (FP) PO SCH (21:16)
[2022-08-10] MEDS: MELATONIN 5 MG TABLETS PO SCH (21:16)
[2022-08-11 07:23] VITALS: RESP 18
[2022-08-11] MEDS: PRENATAL VITAMINS W/ FOLIC ACID TABLET (FP) PO SCH (10:27)
[2022-08-11] MEDS: NICOTINE 7 MG/24 HOURS TOPICAL PATCH TD SCH (10:27)
[2022-08-11] MEDS: THIAMINE HCL 100 MG TABLET (FP) PO SCH (21:35)
[2022-08-11] MEDS: MELATONIN 5 MG TABLETS PO SCH (21:35)
[2022-08-12] MEDS: PRENATAL VITAMINS W/ FOLIC ACID TABLET (FP) PO SCH (09:59)
[2022-08-12] MEDS: NICOTINE 7 MG/24 HOURS TOPICAL PATCH TD SCH (10:00)
[2022-08-12] MEDS: THIAMINE HCL 100 MG TABLET (FP) PO SCH (21:21)
[2022-08-12] MEDS: MELATONIN 5 MG TABLETS PO SCH (21:21)
[2022-08-13] MEDS: NICOTINE 7 MG/24 HOURS TOPICAL PATCH TD SCH (10:24)
[2022-08-13] MEDS: PRENATAL VITAMINS W/ FOLIC ACID TABLET (FP) PO SCH (10:24)
[2022-08-13] MEDS: THIAMINE HCL 100 MG TABLET (FP) PO SCH (22:58)
[2022-08-13] MEDS: MELATONIN 5 MG TABLETS PO SCH (22:58)
[2022-08-14] MEDS: NICOTINE 7 MG/24 HOURS TOPICAL PATCH TD SCH (10:15)
[2022-08-14] MEDS: PRENATAL VITAMINS W/ FOLIC ACID TABLET (FP) PO SCH (10:15)
[2022-08-14] MEDS: THIAMINE HCL 100 MG TABLET (FP) PO SCH (22:15)
[2022-08-14] MEDS: MELATONIN 5 MG TABLETS PO SCH (22:15)
[2022-08-15] MEDS: NICOTINE 7 MG/24 HOURS TOPICAL PATCH TD SCH (10:29)
[2022-08-15] MEDS: PRENATAL VITAMINS W/ FOLIC ACID TABLET (FP) PO SCH (10:30)
[2022-08-15] MEDS: MELATONIN 5 MG TABLETS PO SCH (21:17)
[2022-08-15] MEDS: THIAMINE HCL 100 MG TABLET (FP) PO SCH (21:17)
[2022-08-16] MEDS: PRENATAL VITAMINS W/ FOLIC ACID TABLET (FP) PO SCH (10:43)
[2022-08-16] MEDS: NICOTINE 7 MG/24 HOURS TOPICAL PATCH TD SCH (10:43)
[2022-08-16] MEDS: MELATONIN 5 MG TABLETS PO SCH (21:58)
[2022-08-16] MEDS: THIAMINE HCL 100 MG TABLET (FP) PO SCH (21:58)
[2022-08-17] MEDS: PRENATAL VITAMINS W/ FOLIC ACID TABLET (FP) PO SCH (09:39)
[2022-08-17] MEDS: NICOTINE 7 MG/24 HOURS TOPICAL PATCH TD SCH (09:39)
[2022-08-17] MEDS: THIAMINE HCL 100 MG TABLET (FP) PO SCH (22:27)
[2022-08-17] MEDS: MELATONIN 5 MG TABLETS PO SCH (22:27)
[2022-08-18 07:11] VITALS: BP 119/80; PULSE 63; TEMP 97.8
== END 2022-08-18 08:48 | disposition home or self-care (01) | DRG 772 ==
LOC: YASAS 12:07 → Y5N 12:08 → Y3W 08-09 19:25
PROVIDERS: ADMIT Allergy & Immunology; ATTEND Allergy & Immunology
PROC: HZ42ZZZ Group Counseling for Substance Abuse Treatment, Cognitive-Behavioral (ICD-10-PCS; principal; 2022-08-02)
DX: F10.20 Alcohol dependence, uncomplicated (principal); F14.20 Cocaine dependence, uncomplicated; F12.10 Cannabis abuse, uncomplicated; F17.210 Nicotine dependence, cigarettes, uncomplicated; F17.220 Nicotine dependence, chewing tobacco, uncomplicated; M17.0 Bilateral primary osteoarthritis of knee; M54.50 Low back pain, unspecified; E66.01 Morbid (severe) obesity due to excess calories; Z68.43 Body mass index [BMI] 50.0-59.9, adult; Z86.19 Personal history of other infectious and parasitic diseases

== ENCOUNTER 2022-09-28 09:34 | Inpatient (IN) | payer OTHER ==
[2022-09-28 09:50] VITALS: BMI 49.3
[2022-09-28] MEDS ORDERED: BENZONATATE 200 MG CAPSULE PO PRN (10:40)
[2022-09-28] MEDS ORDERED: DICYCLOMINE HCL 10 MG CAPSULE PO PRN (10:40)
[2022-09-28] MEDS ORDERED: LOPERAMIDE HCL 2 MG CAPSULE PO PRN (10:40)
[2022-09-28] MEDS ORDERED: hydrOXYzine PAMOATE 50 MG CAPSULE (FP) PO PRN (10:40)
[2022-09-28] MEDS ORDERED: POLYETHYLENE GLYCOL (HEALTHYLAX) 3350 17 GM PACKET PO PRN (10:40)
[2022-09-28] MEDS ORDERED: NALOXONE HCL (KLOXXADO) 8 MG SPRAY NS PRN (10:40)
[2022-09-28] MEDS ORDERED: ONDANSETRON *ODT* 4 MG TABLET SL PRN (10:40)
[2022-09-28] MEDS ORDERED: MAG HYDROX/AL HYDROX/SIMETH 30 ML UNIT-DOSE CUP PO PRN (10:40)
[2022-09-28] MEDS ORDERED: guaiFENesin 600 MG TABLET.ER (FP) PO PRN (10:40)
[2022-09-28] MEDS ORDERED: NICOTINE POLACRILEX 2 MG GUM BUC PRN (10:40)
[2022-09-28] MEDS ORDERED: IBUPROFEN 400 MG TABLET (FP) PO PRN (10:40)
[2022-09-28] MEDS ORDERED: NALOXONE HCL 0.4 MG/ML VIAL IM PRN (10:40)
[2022-09-28] MEDS ORDERED: ACETAMINOPHEN 325 MG TABLET (FP) PO PRN (10:40)
[2022-09-28] MEDS ORDERED: IBUPROFEN 600 MG TABLET (FP) PO PRN (10:40)
[2022-09-28] MEDS ORDERED: MAGNESIUM HYDROX 2400MG/30ML ORAL SUSPENSION 30 ML CUP PO PRN (10:40)
[2022-09-28] MEDS ORDERED: BENZOCAINE/MENTHOL (CHLORASEPTIC ) LOZENGE MM PRN (10:40)
[2022-09-28] MEDS ORDERED: BISMUTH SUBSALICYLATE 262 MG/15 ML BTL PO PRN (10:40)
[2022-09-28] MEDS ORDERED: METHOCARBAMOL 500 MG TABLET PO PRN (10:40)
[2022-09-28] MEDS ORDERED: NICOTINE 10 MG CARTRIDGE (INHALER) IH PRN (10:40)
[2022-09-28 14:52] LABS: POTASSIUM 4.1 mmol/L (3.5-5.1)
[2022-09-28 14:54] LABS: CALCIUM 8.9 mg/dL (8.5-10.1)
[2022-09-28 14:55] LABS: ALBUMIN 3.7 g/dl (3.4-5.0); BLOOD UREA NITROGEN 10.2 mg/dL (7-18)
[2022-09-28 15:00] LABS: BILIRUBIN,TOTAL 0.4 mg/dL (0.2-1); TOT PROT 7.4 g/dl (6.4-8.2)
[2022-09-28 15:04] LABS: HEMATOCRIT 40.2 % (35.4-49); HEMOGLOBIN 13.5 GM/dL (11.7-16.9); MCH 30.3 pg (25.7-33.7); MCHC 33.6 g/dl (32.0-35.9); MEAN CELL VOLUME 90.1 fl (80-96); MEAN PLT VOLUME 10.9 fl (7.5-11.1); PLATELET COUNT 157 10^3/uL (134-434); RBC 4.47 M/mm3 (4.00-5.60); RDW 15.7 % (11.9-15.9); WHITE BLOOD COUNT 7.9 K/mm3 (4.0-10.0)
[2022-09-28] MEDS: THIAMINE HCL 100 MG TABLET (FP) PO SCH (22:32)
[2022-09-28] MEDS: MELATONIN 5 MG TABLETS PO SCH (22:32)
[2022-09-29] MEDS: PRENATAL VITAMINS W/ FOLIC ACID TABLET (FP) PO SCH (10:28)
[2022-09-29 20:52] VITALS: RESP 18
[2022-09-29] MEDS: THIAMINE HCL 100 MG TABLET (FP) PO SCH (23:15)
[2022-09-29] MEDS: MELATONIN 5 MG TABLETS PO SCH (23:15)
[2022-09-30 06:15] VITALS: BP 116/69; PULSE 70; TEMP 96.6
[2022-09-30] MEDS: PRENATAL VITAMINS W/ FOLIC ACID TABLET (FP) PO SCH (10:39)
== END 2022-09-30 10:40 | disposition home or self-care (01) | DRG 774 ==
LOC: YASAS 09:34 → Y6N 12:21
PROVIDERS: ADMIT Allergy & Immunology; ATTEND Surgery
PROC: HZ2ZZZZ Detoxification Services for Substance Abuse Treatment (ICD-10-PCS; principal; 2022-09-28)
DX: F10.230 Alcohol dependence with withdrawal, uncomplicated (principal); F14.20 Cocaine dependence, uncomplicated; F12.20 Cannabis dependence, uncomplicated; F17.210 Nicotine dependence, cigarettes, uncomplicated; G47.30 Sleep apnea, unspecified; E66.01 Morbid (severe) obesity due to excess calories; Z68.42 Body mass index [BMI] 45.0-49.9, adult; W19.XXXA Unspecified fall, initial encounter; Y92.238 Other place in hospital as the place of occurrence of the external cause; Z86.19 Personal history of other infectious and parasitic diseases; Z91.013 Allergy to seafood
CPT/HCPCS: 36415; 80053; 85027; 86593; 86780; 87811; C9803-CS; U0003; U0005

== ENCOUNTER 2022-12-18 12:10 | Inpatient (IN) | payer OTHER ==
[2022-12-18 14:18] VITALS: BMI 50.2
[2022-12-18] MEDS ORDERED: COLLOIDAL OATMEAL 1 BAR EACH TP PRN (16:49)
[2022-12-18] MEDS ORDERED: BENZOCAINE/MENTHOL (CHLORASEPTIC ) LOZENGE MM PRN (16:49)
[2022-12-18] MEDS ORDERED: IBUPROFEN 600 MG TABLET (FP) PO PRN (16:49)
[2022-12-18] MEDS ORDERED: MAG HYDROX/AL HYDROX/SIMETH 30 ML UNIT-DOSE CUP PO PRN (16:49)
[2022-12-18] MEDS ORDERED: LOPERAMIDE HCL 2 MG CAPSULE PO PRN (16:49)
[2022-12-18] MEDS ORDERED: BENZONATATE 200 MG CAPSULE PO PRN (16:49)
[2022-12-18] MEDS ORDERED: AMMONIUM LACTATE 12% LOTION 225 GM BOTTLE TP PRN (16:49)
[2022-12-18] MEDS ORDERED: POLYETHYLENE GLYCOL (HEALTHYLAX) 3350 17 GM PACKET PO PRN (16:49)
[2022-12-18] MEDS ORDERED: IBUPROFEN 400 MG TABLET (FP) PO PRN (16:49)
[2022-12-18] MEDS ORDERED: ACETAMINOPHEN 325 MG TABLET (FP) PO PRN (16:49)
[2022-12-18] MEDS ORDERED: guaiFENesin 600 MG TABLET.ER (FP) PO PRN (16:49)
[2022-12-18] MEDS ORDERED: MAGNESIUM HYDROX 2400MG/30ML ORAL SUSPENSION 30 ML CUP PO PRN (16:49)
[2022-12-18] MEDS ORDERED: P-EPHED 60MG/TRIPROLIDI 2.5MG TABLET PO PRN (16:49)
[2022-12-18] MEDS ORDERED: hydrOXYzine PAMOATE 25 MG CAPSULE (FP) PO PRN (16:49)
[2022-12-18] MEDS: MELATONIN 5 MG TABLETS PO SCH (21:58)
[2022-12-18] MEDS: THIAMINE HCL 100 MG TABLET (FP) PO SCH (21:58)
[2022-12-19 09:15] LABS: HEMATOCRIT 41.4 % (35.4-49); HEMOGLOBIN 13.3 GM/dL (11.7-16.9); MCH 29.3 pg (25.7-33.7); MCHC 32.2 g/dl (32.0-35.9); MEAN CELL VOLUME 91.2 fl (80-96); MEAN PLT VOLUME 11.3 fl (7.5-11.1); PLATELET COUNT 147 10^3/uL (134-434); RBC 4.54 M/mm3 (4.00-5.60); RDW 15.8 % (11.9-15.9); WHITE BLOOD COUNT 8.3 K/mm3 (4.0-10.0)
[2022-12-19 09:17] LABS: POTASSIUM 4.3 mmol/L (3.5-5.1)
[2022-12-19 09:21] LABS: CALCIUM 8.7 mg/dL (8.5-10.1)
[2022-12-19 09:22] LABS: ALBUMIN 3.1 g/dl (3.4-5.0); BLOOD UREA NITROGEN 6.7 mg/dL (7-18)
[2022-12-19 09:25] LABS: CREATININE 0.8 mg/dL (0.55-1.3)
[2022-12-19 09:26] LABS: BILIRUBIN,TOTAL 0.3 mg/dL (0.2-1)
[2022-12-19 09:27] LABS: TOT PROT 6.7 g/dl (6.4-8.2)
[2022-12-19] MEDS: PRENATAL VITAMINS W/ FOLIC ACID TABLET (FP) PO SCH (10:40)
[2022-12-19] MEDS: MELATONIN 5 MG TABLETS PO SCH (21:22)
[2022-12-19] MEDS: THIAMINE HCL 100 MG TABLET (FP) PO SCH (21:22)
[2022-12-20] MEDS: PRENATAL VITAMINS W/ FOLIC ACID TABLET (FP) PO SCH (09:45)
[2022-12-20] MEDS: THIAMINE HCL 100 MG TABLET (FP) PO SCH (21:36)
[2022-12-20] MEDS: MELATONIN 5 MG TABLETS PO SCH (21:36)
[2022-12-20 23:02] LABS: PH,URINE 5.5 (5.0-8.0); URINE APPEARANCE CLEAR; URINE BILIRUBIN NEGATIVE (NEGATIVE); URINE COLOR YELLOW; URINE GLUCOSE (UA) NEGATIVE (NEGATIVE); URINE KETONE NEGATIVE (NEGATIVE); URINE LEUK ESTERASE NEGATIVE (NEGATIVE); URINE NITRITE NEGATIVE (NEGATIVE); URINE PROTEIN NEGATIVE (NEGATIVE); URINE UROBILINOGEN 0.2 mg/dL (0.2-1.0)
[2022-12-21] MEDS: PRENATAL VITAMINS W/ FOLIC ACID TABLET (FP) PO SCH (09:42)
[2022-12-21] MEDS: MELATONIN 5 MG TABLETS PO SCH (21:45)
[2022-12-21] MEDS: THIAMINE HCL 100 MG TABLET (FP) PO SCH (21:45)
[2022-12-22] MEDS: PRENATAL VITAMINS W/ FOLIC ACID TABLET (FP) PO SCH (10:33)
[2022-12-22] MEDS: MELATONIN 5 MG TABLETS PO SCH (21:41)
[2022-12-22] MEDS: THIAMINE HCL 100 MG TABLET (FP) PO SCH (21:42)
[2022-12-23] MEDS: PRENATAL VITAMINS W/ FOLIC ACID TABLET (FP) PO SCH (10:24)
[2022-12-23] MEDS: THIAMINE HCL 100 MG TABLET (FP) PO SCH (21:33)
[2022-12-23] MEDS: MELATONIN 5 MG TABLETS PO SCH (21:33)
[2022-12-24] MEDS: PRENATAL VITAMINS W/ FOLIC ACID TABLET (FP) PO SCH (10:40)
[2022-12-24] MEDS: MELATONIN 5 MG TABLETS PO SCH (21:51)
[2022-12-24] MEDS: THIAMINE HCL 100 MG TABLET (FP) PO SCH (21:51)
[2022-12-25] MEDS: PRENATAL VITAMINS W/ FOLIC ACID TABLET (FP) PO SCH (09:17)
[2022-12-25] MEDS: THIAMINE HCL 100 MG TABLET (FP) PO SCH (21:36)
[2022-12-25] MEDS: MELATONIN 5 MG TABLETS PO SCH (21:36)
[2022-12-26] MEDS: PRENATAL VITAMINS W/ FOLIC ACID TABLET (FP) PO SCH (10:29)
[2022-12-26] MEDS: THIAMINE HCL 100 MG TABLET (FP) PO SCH (21:46)
[2022-12-26] MEDS: MELATONIN 5 MG TABLETS PO SCH (21:46)
[2022-12-27] MEDS: PRENATAL VITAMINS W/ FOLIC ACID TABLET (FP) PO SCH (10:09)
[2022-12-27] MEDS: MELATONIN 5 MG TABLETS PO SCH (21:45)
[2022-12-27] MEDS: THIAMINE HCL 100 MG TABLET (FP) PO SCH (21:45)
[2022-12-28 07:28] VITALS: BP 112/71; PULSE 66; RESP 17; TEMP 97.5
== END 2022-12-28 09:24 | disposition home or self-care (01) | DRG 772 ==
LOC: YASAS 12:10 → Y3W 18:16
PROVIDERS: ADMIT Allergy & Immunology; ATTEND Psychiatry & Neurology Pain Medicine
PROC: HZ42ZZZ Group Counseling for Substance Abuse Treatment, Cognitive-Behavioral (ICD-10-PCS; principal; 2022-12-18)
DX: F14.20 Cocaine dependence, uncomplicated (principal); F10.20 Alcohol dependence, uncomplicated; F12.10 Cannabis abuse, uncomplicated; F17.210 Nicotine dependence, cigarettes, uncomplicated; M17.0 Bilateral primary osteoarthritis of knee; E66.01 Morbid (severe) obesity due to excess calories; Z68.43 Body mass index [BMI] 50.0-59.9, adult; Z86.19 Personal history of other infectious and parasitic diseases; Z59.00 Homelessness unspecified
CPT/HCPCS: 36415; 80053; 81003; 85027; 86593; 86780; 87635

== ENCOUNTER 2023-04-03 16:40 | Inpatient (IN) | payer OTHER ==
[2023-04-03 17:42] VITALS: BMI 51.3
[2023-04-03] MEDS ORDERED: BENZOCAINE/MENTHOL (CHLORASEPTIC ) LOZENGE MM PRN (20:27)
[2023-04-03] MEDS ORDERED: IBUPROFEN 600 MG TABLET (FP) PO PRN (20:27)
[2023-04-03] MEDS ORDERED: NALOXONE HCL (KLOXXADO) 8 MG SPRAY NS PRN (20:27)
[2023-04-03] MEDS ORDERED: METHOCARBAMOL 500 MG TABLET PO PRN (20:27)
[2023-04-03] MEDS ORDERED: MAG HYDROX/AL HYDROX/SIMETH 30 ML UNIT-DOSE CUP PO PRN (20:27)
[2023-04-03] MEDS ORDERED: NALOXONE HCL 0.4 MG/ML VIAL IM PRN (20:27)
[2023-04-03] MEDS ORDERED: BENZONATATE 200 MG CAPSULE PO PRN (20:27)
[2023-04-03] MEDS ORDERED: ONDANSETRON *ODT* 4 MG TABLET SL PRN (20:27)
[2023-04-03] MEDS ORDERED: POLYETHYLENE GLYCOL (HEALTHYLAX) 3350 17 GM PACKET PO PRN (20:27)
[2023-04-03] MEDS ORDERED: IBUPROFEN 400 MG TABLET (FP) PO PRN (20:27)
[2023-04-03] MEDS ORDERED: MAGNESIUM HYDROX 2400MG/30ML ORAL SUSPENSION 30 ML CUP PO PRN (20:27)
[2023-04-03] MEDS ORDERED: guaiFENesin 600 MG TABLET.ER (FP) PO PRN (20:27)
[2023-04-03] MEDS ORDERED: DICYCLOMINE HCL 10 MG CAPSULE PO PRN (20:27)
[2023-04-03] MEDS ORDERED: BISMUTH SUBSALICYLATE 524 MG/30 ML PO PRN (20:27)
[2023-04-03] MEDS ORDERED: hydrOXYzine PAMOATE 25 MG CAPSULE (FP) PO PRN (20:27)
[2023-04-03] MEDS ORDERED: ACETAMINOPHEN 325 MG TABLET (FP) PO PRN (20:27)
[2023-04-03] MEDS ORDERED: NICOTINE POLACRILEX 4 MG GUM BUC PRN (20:27)
[2023-04-03] MEDS ORDERED: chlordiazePOXIDE HCL 25 MG CAPSULE PO PRN (20:27)
[2023-04-03] MEDS ORDERED: LOPERAMIDE HCL 2 MG CAPSULE PO PRN (20:27)
[2023-04-03] MEDS: MELATONIN 5 MG TABLETS PO SCH (22:21)
[2023-04-03] MEDS: THIAMINE HCL 100 MG TABLET (FP) PO SCH (22:21)
[2023-04-03] MEDS: chlordiazePOXIDE HCL 25 MG CAPSULE PO SCH (22:21)
[2023-04-04] MEDS: chlordiazePOXIDE HCL 25 MG CAPSULE PO SCH ×4 (05:17→22:24)
[2023-04-04] MEDS ORDERED: HYDROCHLOROTHIAZIDE 25 MG TABLET (FP) PO SCH (10:00)
[2023-04-04] MEDS: PRENATAL VITAMINS W/ FOLIC ACID TABLET (FP) PO SCH (10:11)
[2023-04-04] MEDS: NICOTINE 21 MG/24 HOURS TOPICAL PATCH TD SCH (10:12)
[2023-04-04 12:00] LABS: HEMATOCRIT 41.7 % (35.4-49); HEMOGLOBIN 13.8 GM/dL (11.7-16.9); MCH 29.6 pg (25.7-33.7); MCHC 33.1 g/dl (32.0-35.9); MEAN CELL VOLUME 89.4 fl (80-96); MEAN PLT VOLUME 10.7 fl (7.5-11.1); PLATELET COUNT 150 10^3/uL (134-434); RBC 4.67 M/mm3 (4.00-5.60); RDW 15.2 % (11.9-15.9); WHITE BLOOD COUNT 5.2 K/mm3 (4.0-10.0)
[2023-04-04 12:05] LABS: CHLORIDE 104 mmol/L (98-107); SODIUM 141 mmol/L (136-145)
[2023-04-04 12:07] LABS: CALCIUM 8.6 mg/dL (8.5-10.1)
[2023-04-04 12:08] LABS: ALBUMIN 3.1 g/dl (3.4-5.0); ANION GAP 7 mmol/L (4-13); CO2 30 mmol/L (21-32); GLUCOSE,RANDOM 132 mg/dL (74-106)
[2023-04-04 12:11] LABS: CREATININE 0.9 mg/dL (0.55-1.3); SGOT/AST 20 U/L (15-37); SGPT/ALT 31 U/L (13-61)
[2023-04-04 12:12] LABS: BILIRUBIN,TOTAL 0.4 mg/dL (0.2-1); TOT PROT 6.4 g/dl (6.4-8.2)
[2023-04-04 12:13] LABS: ALK PHOS 62 U/L (45-117)
[2023-04-04] MEDS: MELATONIN 5 MG TABLETS PO SCH (22:24)
[2023-04-04] MEDS: THIAMINE HCL 100 MG TABLET (FP) PO SCH (22:24)
[2023-04-05] MEDS: chlordiazePOXIDE HCL 25 MG CAPSULE PO SCH ×4 (05:23→22:11)
[2023-04-05] MEDS: PRENATAL VITAMINS W/ FOLIC ACID TABLET (FP) PO SCH (10:25)
[2023-04-05] MEDS: NICOTINE 21 MG/24 HOURS TOPICAL PATCH TD SCH (10:25)
[2023-04-05] MEDS: MELATONIN 5 MG TABLETS PO SCH (22:10)
[2023-04-05] MEDS: THIAMINE HCL 100 MG TABLET (FP) PO SCH (22:10)
[2023-04-06] MEDS ORDERED: chlordiazePOXIDE HCL 10 MG CAPSULE PO PRN
[2023-04-06] MEDS: chlordiazePOXIDE HCL 10 MG CAPSULE PO SCH ×5 (05:27→23:20)
[2023-04-06] MEDS: PRENATAL VITAMINS W/ FOLIC ACID TABLET (FP) PO SCH (10:11)
[2023-04-06] MEDS: NICOTINE 21 MG/24 HOURS TOPICAL PATCH TD SCH (10:11)
[2023-04-06] MEDS: MELATONIN 5 MG TABLETS PO SCH (22:46)
[2023-04-06] MEDS: THIAMINE HCL 100 MG TABLET (FP) PO SCH (22:46)
[2023-04-07] MEDS: chlordiazePOXIDE HCL 10 MG CAPSULE PO SCH ×2 (05:21→17:45)
[2023-04-07] MEDS: NICOTINE 21 MG/24 HOURS TOPICAL PATCH TD SCH (10:19)
[2023-04-07] MEDS: PRENATAL VITAMINS W/ FOLIC ACID TABLET (FP) PO SCH (10:19)
[2023-04-07] MEDS: MELATONIN 5 MG TABLETS PO SCH (22:37)
[2023-04-07] MEDS: THIAMINE HCL 100 MG TABLET (FP) PO SCH (22:37)
[2023-04-08] MEDS ORDERED: chlordiazePOXIDE HCL 10 MG CAPSULE PO ONE (05:00)
[2023-04-08] MEDS: NICOTINE 21 MG/24 HOURS TOPICAL PATCH TD SCH (10:34)
[2023-04-08] MEDS: PRENATAL VITAMINS W/ FOLIC ACID TABLET (FP) PO SCH (10:35)
[2023-04-08 17:01] VITALS: BP 113/64; PULSE 85; RESP 18; TEMP 97.5
== END 2023-04-08 17:58 | disposition other institution (70) | DRG 774 ==
LOC: YASAS 16:40 → Y3N 20:39
PROVIDERS: ADMIT Allergy & Immunology; ATTEND Surgery
PROC: HZ2ZZZZ Detoxification Services for Substance Abuse Treatment (ICD-10-PCS; principal; 2023-04-03)
DX: F10.230 Alcohol dependence with withdrawal, uncomplicated (principal); F14.20 Cocaine dependence, uncomplicated; F12.20 Cannabis dependence, uncomplicated; F17.210 Nicotine dependence, cigarettes, uncomplicated; M17.0 Bilateral primary osteoarthritis of knee; E66.01 Morbid (severe) obesity due to excess calories; Z68.43 Body mass index [BMI] 50.0-59.9, adult; Z86.19 Personal history of other infectious and parasitic diseases
CPT/HCPCS: 36415; 80053; 80307; 85027; 86593; 86780; 87635

== ENCOUNTER 2023-04-08 18:31 | Inpatient (IN) | payer OTHER ==
[2023-04-08] MEDS ORDERED: COLLOIDAL OATMEAL 1 BAR EACH TP PRN (19:48)
[2023-04-08] MEDS ORDERED: ACETAMINOPHEN 325 MG TABLET (FP) PO PRN (19:48)
[2023-04-08] MEDS ORDERED: MAG HYDROX/AL HYDROX/SIMETH 30 ML UNIT-DOSE CUP PO PRN (19:48)
[2023-04-08] MEDS ORDERED: IBUPROFEN 600 MG TABLET (FP) PO PRN (19:48)
[2023-04-08] MEDS ORDERED: MAGNESIUM HYDROX 2400MG/30ML ORAL SUSPENSION 30 ML CUP PO PRN (19:48)
[2023-04-08] MEDS ORDERED: BENZONATATE 200 MG CAPSULE PO PRN (19:48)
[2023-04-08] MEDS ORDERED: POLYETHYLENE GLYCOL (HEALTHYLAX) 3350 17 GM PACKET PO PRN (19:48)
[2023-04-08] MEDS ORDERED: NALOXONE HCL 0.4 MG/ML VIAL IVPUSH PRN (19:48)
[2023-04-08] MEDS ORDERED: BENZOCAINE/MENTHOL (CHLORASEPTIC ) LOZENGE MM PRN (19:48)
[2023-04-08] MEDS ORDERED: METHOCARBAMOL 500 MG TABLET PO PRN (19:48)
[2023-04-08] MEDS ORDERED: IBUPROFEN 400 MG TABLET (FP) PO PRN (19:48)
[2023-04-08] MEDS ORDERED: LOPERAMIDE HCL 2 MG CAPSULE PO PRN (19:48)
[2023-04-08] MEDS ORDERED: hydrOXYzine PAMOATE 25 MG CAPSULE (FP) PO PRN (19:48)
[2023-04-08] MEDS ORDERED: NALOXONE HCL (KLOXXADO) 8 MG SPRAY NS PRN (19:48)
[2023-04-08] MEDS ORDERED: guaiFENesin 600 MG TABLET.ER (FP) PO PRN (19:48)
[2023-04-08] MEDS: MELATONIN 5 MG TABLETS PO SCH (21:07)
[2023-04-08] MEDS: THIAMINE HCL 100 MG TABLET (FP) PO SCH (21:07)
[2023-04-09] MEDS: PRENATAL VITAMINS W/ FOLIC ACID TABLET (FP) PO SCH (10:03)
[2023-04-09] MEDS: THIAMINE HCL 100 MG TABLET (FP) PO SCH (21:30)
[2023-04-09] MEDS: MELATONIN 5 MG TABLETS PO SCH (21:30)
[2023-04-10] MEDS: PRENATAL VITAMINS W/ FOLIC ACID TABLET (FP) PO SCH (09:19)
[2023-04-10] MEDS: THIAMINE HCL 100 MG TABLET (FP) PO SCH (21:37)
[2023-04-10] MEDS: MELATONIN 5 MG TABLETS PO SCH (21:37)
[2023-04-11] MEDS ORDERED: PRENATAL VITAMINS W/ FOLIC ACID TABLET (FP) PO PRN (08:26)
[2023-04-11] MEDS: MELATONIN 5 MG TABLETS PO SCH (23:13)
[2023-04-11] MEDS: THIAMINE HCL 100 MG TABLET (FP) PO SCH (23:13)
[2023-04-12] MEDS: MELATONIN 5 MG TABLETS PO SCH (22:51)
[2023-04-12] MEDS: THIAMINE HCL 100 MG TABLET (FP) PO SCH (22:51)
[2023-04-13] MEDS: THIAMINE HCL 100 MG TABLET (FP) PO SCH (21:26)
[2023-04-13] MEDS: MELATONIN 5 MG TABLETS PO SCH (21:26)
[2023-04-14] MEDS: THIAMINE HCL 100 MG TABLET (FP) PO SCH (21:30)
[2023-04-14] MEDS: MELATONIN 5 MG TABLETS PO SCH (21:30)
[2023-04-15] MEDS: THIAMINE HCL 100 MG TABLET (FP) PO SCH (21:13)
[2023-04-15] MEDS: MELATONIN 5 MG TABLETS PO SCH (21:13)
[2023-04-16] MEDS: MELATONIN 5 MG TABLETS PO SCH (23:19)
[2023-04-16] MEDS: THIAMINE HCL 100 MG TABLET (FP) PO SCH (23:19)
[2023-04-17] MEDS: THIAMINE HCL 100 MG TABLET (FP) PO SCH (21:56)
[2023-04-17] MEDS: MELATONIN 5 MG TABLETS PO SCH (21:56)
[2023-04-18] MEDS: MELATONIN 5 MG TABLETS PO SCH (21:24)
[2023-04-18] MEDS: THIAMINE HCL 100 MG TABLET (FP) PO SCH (21:24)
[2023-04-19] MEDS: THIAMINE HCL 100 MG TABLET (FP) PO SCH (21:36)
[2023-04-19] MEDS: MELATONIN 5 MG TABLETS PO SCH (21:37)
[2023-04-20] MEDS: THIAMINE HCL 100 MG TABLET (FP) PO SCH (21:42)
[2023-04-20] MEDS: MELATONIN 5 MG TABLETS PO SCH (21:42)
[2023-04-21] MEDS: THIAMINE HCL 100 MG TABLET (FP) PO SCH (21:04)
[2023-04-21] MEDS: MELATONIN 5 MG TABLETS PO SCH (21:04)
[2023-04-22] MEDS: MELATONIN 5 MG TABLETS PO SCH (21:41)
[2023-04-22] MEDS: THIAMINE HCL 100 MG TABLET (FP) PO SCH (21:42)
[2023-04-23] MEDS: THIAMINE HCL 100 MG TABLET (FP) PO SCH (21:24)
[2023-04-23] MEDS: MELATONIN 5 MG TABLETS PO SCH (21:24)
[2023-04-24] MEDS: MELATONIN 5 MG TABLETS PO SCH (21:25)
[2023-04-24] MEDS: THIAMINE HCL 100 MG TABLET (FP) PO SCH (21:26)
[2023-04-25] MEDS: MELATONIN 5 MG TABLETS PO SCH (21:22)
[2023-04-25] MEDS: THIAMINE HCL 100 MG TABLET (FP) PO SCH (21:22)
[2023-04-26] MEDS: THIAMINE HCL 100 MG TABLET (FP) PO SCH (22:14)
[2023-04-26] MEDS: MELATONIN 5 MG TABLETS PO SCH (22:15)
[2023-04-27] MEDS: THIAMINE HCL 100 MG TABLET (FP) PO SCH (21:21)
[2023-04-27] MEDS: MELATONIN 5 MG TABLETS PO SCH (21:21)
[2023-04-28] MEDS: THIAMINE HCL 100 MG TABLET (FP) PO SCH (21:11)
[2023-04-28] MEDS: MELATONIN 5 MG TABLETS PO SCH (21:11)
[2023-04-29 07:45] VITALS: BP 115/77; PULSE 98; RESP 18; TEMP 97.5
== END 2023-04-29 08:48 | disposition home or self-care (01) | DRG 772 ==
LOC: YASAS 18:31 → Y3E 18:36
PROVIDERS: ADMIT Allergy & Immunology; ATTEND Psychiatry & Neurology Pain Medicine
PROC: HZ42ZZZ Group Counseling for Substance Abuse Treatment, Cognitive-Behavioral (ICD-10-PCS; principal; 2023-04-08)
DX: F10.20 Alcohol dependence, uncomplicated (principal); F14.20 Cocaine dependence, uncomplicated; F17.210 Nicotine dependence, cigarettes, uncomplicated; Z59.00 Homelessness unspecified

== ENCOUNTER 2023-10-28 10:38 | Inpatient (IN) | payer OTHER ==
[2023-10-28 11:06] VITALS: BMI 43.1
[2023-10-28] MEDS ORDERED: guaiFENesin 600 MG TABLET.ER (FP) PO PRN (11:24)
[2023-10-28] MEDS ORDERED: METHOCARBAMOL 500 MG TABLET PO PRN (11:24)
[2023-10-28] MEDS ORDERED: DICYCLOMINE HCL 10 MG CAPSULE PO PRN (11:24)
[2023-10-28] MEDS ORDERED: IBUPROFEN 400 MG TABLET (FP) PO PRN (11:24)
[2023-10-28] MEDS ORDERED: MAGNESIUM HYDROX 2400MG/30ML ORAL SUSPENSION 30 ML CUP PO PRN (11:24)
[2023-10-28] MEDS ORDERED: POLYETHYLENE GLYCOL (HEALTHYLAX) 3350 17 GM PACKET PO PRN (11:24)
[2023-10-28] MEDS ORDERED: ONDANSETRON *ODT* 4 MG TABLET SL PRN (11:24)
[2023-10-28] MEDS ORDERED: ACETAMINOPHEN 325 MG TABLET (FP) PO PRN (11:24)
[2023-10-28] MEDS ORDERED: LOPERAMIDE HCL 2 MG CAPSULE PO PRN (11:24)
[2023-10-28] MEDS ORDERED: NICOTINE POLACRILEX 2 MG GUM BUC PRN (11:24)
[2023-10-28] MEDS ORDERED: NICOTINE POLACRILEX 2 MG LOZENGE BC PRN (11:24)
[2023-10-28] MEDS ORDERED: BENZOCAINE/MENTHOL (CHLORASEPTIC ) LOZENGE MM PRN (11:24)
[2023-10-28] MEDS ORDERED: BENZONATATE 200 MG CAPSULE PO PRN (11:24)
[2023-10-28] MEDS ORDERED: IBUPROFEN 600 MG TABLET (FP) PO PRN (11:24)
[2023-10-28] MEDS: MELATONIN 5 MG TABLETS PO SCH (22:25)
[2023-10-28] MEDS: THIAMINE 100 MG TABLET PO SCH (22:26)
[2023-10-29] MEDS: PRENATAL VITAMINS W/ FOLIC ACID TABLET (FP) PO SCH (10:29)
[2023-10-29] MEDS: MAG HYDROX/AL HYDROX/SIMETH 30 ML UNIT-DOSE CUP PO PRN (11:00)
[2023-10-29 11:26] LABS: HEMATOCRIT 42.4 % (35.4-49); HEMOGLOBIN 14.2 GM/dL (11.7-16.9); MCH 30.1 pg (25.7-33.7); MCHC 33.4 g/dl (32.0-35.9); MEAN CELL VOLUME 90.1 fl (80-96); MEAN PLT VOLUME 11.4 fl (7.5-11.1); PLATELET COUNT 133 10^3/uL (134-434); RBC 4.71 M/mm3 (4.00-5.60); RDW 15.7 % (11.9-15.9); WHITE BLOOD COUNT 5.8 K/mm3 (4.0-10.0)
[2023-10-29 11:27] LABS: POTASSIUM 5.5 mmol/L (3.5-5.1)
[2023-10-29 11:33] LABS: CALCIUM 8.6 mg/dL (8.5-10.1)
[2023-10-29 11:34] LABS: BLOOD UREA NITROGEN 13.2 mg/dL (7-18)
[2023-10-29 11:37] LABS: CREATININE 0.7 mg/dL (0.55-1.3)
[2023-10-29 11:38] LABS: BILIRUBIN,TOTAL 0.3 mg/dL (0.2-1); TOT PROT 6.2 g/dl (6.4-8.2)
[2023-10-30] MEDS: BISMUTH SUBSALICYLATE 524 MG/30 ML PO PRN (03:35)
[2023-10-31 17:44] VITALS: RESP 17
[2023-11-01 09:41] VITALS: BP 123/64; PULSE 86; TEMP 97.6
== END 2023-11-01 12:05 | disposition other institution (70) | DRG 774 ==
LOC: YASAS 10:38 → Y6N 11:28
PROVIDERS: ADMIT Allergy & Immunology; ATTEND Surgery
PROC: HZ2ZZZZ Detoxification Services for Substance Abuse Treatment (ICD-10-PCS; principal; 2023-10-28)
DX: F14.20 Cocaine dependence, uncomplicated (principal); F10.20 Alcohol dependence, uncomplicated; F17.210 Nicotine dependence, cigarettes, uncomplicated; M17.0 Bilateral primary osteoarthritis of knee; Z86.19 Personal history of other infectious and parasitic diseases
CPT/HCPCS: 36415; 80053; 80305; 80307; 84132; 85027; 86593; 86780; 87811; 93005; 93010

== ENCOUNTER 2023-11-01 12:03 | Inpatient (IN) | payer OTHER ==
[2023-11-01] MEDS ORDERED: BENZOCAINE/MENTHOL (CHLORASEPTIC ) LOZENGE MM PRN (14:25)
[2023-11-01] MEDS ORDERED: NICOTINE POLACRILEX 4 MG GUM BUC PRN (14:25)
[2023-11-01] MEDS ORDERED: ACETAMINOPHEN 325 MG TABLET (FP) PO PRN (14:25)
[2023-11-01] MEDS ORDERED: IBUPROFEN 600 MG TABLET (FP) PO PRN (14:25)
[2023-11-01] MEDS ORDERED: BENZONATATE 200 MG CAPSULE PO PRN (14:25)
[2023-11-01] MEDS ORDERED: guaiFENesin 600 MG TABLET.ER (FP) PO PRN (14:25)
[2023-11-01] MEDS ORDERED: NALOXONE HCL 0.4 MG/ML VIAL IVPUSH PRN (14:25)
[2023-11-01] MEDS ORDERED: hydrOXYzine PAMOATE 25 MG CAPSULE (FP) PO PRN (14:25)
[2023-11-01] MEDS ORDERED: POLYETHYLENE GLYCOL (HEALTHYLAX) 3350 17 GM PACKET PO PRN (14:25)
[2023-11-01] MEDS ORDERED: LOPERAMIDE HCL 2 MG CAPSULE PO PRN (14:25)
[2023-11-01] MEDS ORDERED: METHOCARBAMOL 500 MG TABLET PO PRN (14:25)
[2023-11-01] MEDS ORDERED: NALOXONE (NARCAN) HCL 4 MG/0.1 ML SPRAY NS PRN (14:25)
[2023-11-01] MEDS ORDERED: MAG HYDROX/AL HYDROX/SIMETH 30 ML UNIT-DOSE CUP PO PRN (14:25)
[2023-11-01] MEDS ORDERED: NICOTINE POLACRILEX 4 MG LOZENGE BC PRN (14:25)
[2023-11-01] MEDS ORDERED: MAGNESIUM HYDROX 2400MG/30ML ORAL SUSPENSION 30 ML CUP PO PRN (14:25)
[2023-11-01] MEDS ORDERED: IBUPROFEN 400 MG TABLET (FP) PO PRN (14:25)
[2023-11-01] MEDS: MELATONIN 5 MG TABLETS PO SCH (21:36)
[2023-11-01] MEDS: THIAMINE 100 MG TABLET PO SCH (21:36)
[2023-11-02] MEDS: PRENATAL VITAMINS W/ FOLIC ACID TABLET (FP) PO SCH (10:27)
[2023-11-02] MEDS: NICOTINE 7 MG/24 HOURS TOPICAL PATCH TD SCH (10:27)
[2023-11-02] MEDS ORDERED: NICOTINE 7 MG/24 HOURS TOPICAL PATCH TD PRN (11:41)
[2023-11-03] MEDS ORDERED: PRENATAL VITAMINS W/ FOLIC ACID TABLET (FP) PO PRN (16:16)
[2023-11-10 07:19] VITALS: RESP 18
[2023-11-10 21:47] VITALS: BP 124/78; PULSE 102; TEMP 97.7
== END 2023-11-10 21:55 | disposition home or self-care (01) | DRG 772 ==
LOC: YASAS 12:03 → Y3E 12:05
PROVIDERS: ADMIT Allergy & Immunology; ATTEND Psychiatry & Neurology Pain Medicine
PROC: HZ42ZZZ Group Counseling for Substance Abuse Treatment, Cognitive-Behavioral (ICD-10-PCS; principal; 2023-11-01)
DX: F10.20 Alcohol dependence, uncomplicated (principal); F12.20 Cannabis dependence, uncomplicated; F17.210 Nicotine dependence, cigarettes, uncomplicated; M17.0 Bilateral primary osteoarthritis of knee

== ENCOUNTER 2024-01-29 15:36 | Inpatient (IN) | payer OTHER ==
[2024-01-29 16:56] VITALS: BMI 39.9
[2024-01-29] MEDS ORDERED: chlordiazePOXIDE HCL 25 MG CAPSULE PO PRN (17:03)
[2024-01-29] MEDS ORDERED: MAGNESIUM HYDROX 2400MG/30ML ORAL SUSPENSION 30 ML CUP PO PRN (17:05)
[2024-01-29] MEDS ORDERED: NICOTINE POLACRILEX 2 MG GUM BUC PRN (17:05)
[2024-01-29] MEDS ORDERED: POLYETHYLENE GLYCOL (HEALTHYLAX) 3350 17 GM PACKET PO PRN (17:05)
[2024-01-29] MEDS ORDERED: DICYCLOMINE HCL 10 MG CAPSULE PO PRN (17:05)
[2024-01-29] MEDS ORDERED: NICOTINE POLACRILEX 2 MG LOZENGE BC PRN (17:05)
[2024-01-29] MEDS ORDERED: BISMUTH SUBSALICYLATE 524 MG/30 ML PO PRN (17:05)
[2024-01-29] MEDS ORDERED: guaiFENesin 600 MG TABLET.ER (FP) PO PRN (17:05)
[2024-01-29] MEDS ORDERED: MAG HYDROX/AL HYDROX/SIMETH 30 ML UNIT-DOSE CUP PO PRN (17:05)
[2024-01-29] MEDS ORDERED: LOPERAMIDE HCL 2 MG CAPSULE PO PRN (17:05)
[2024-01-29] MEDS ORDERED: BENZOCAINE/MENTHOL (CHLORASEPTIC ) LOZENGE MM PRN (17:05)
[2024-01-29] MEDS ORDERED: ACETAMINOPHEN 325 MG TABLET (FP) PO PRN (17:05)
[2024-01-29] MEDS ORDERED: BENZONATATE 200 MG CAPSULE PO PRN (17:05)
[2024-01-29] MEDS ORDERED: IBUPROFEN 400 MG TABLET (FP) PO PRN (17:05)
[2024-01-29] MEDS ORDERED: ONDANSETRON *ODT* 4 MG TABLET SL PRN (17:05)
[2024-01-29] MEDS ORDERED: IBUPROFEN 600 MG TABLET (FP) PO PRN (17:05)
[2024-01-29] MEDS ORDERED: chlordiazePOXIDE HCL 25 MG CAPSULE ONE (17:37)
[2024-01-29] MEDS: chlordiazePOXIDE HCL 25 MG CAPSULE PO SCH (17:40)
[2024-01-29] MEDS: MELATONIN 5 MG TABLETS PO SCH (22:46)
[2024-01-29] MEDS: THIAMINE 100 MG TABLET PO SCH (22:46)
[2024-01-29] MEDS: METHOCARBAMOL 500 MG TABLET PO PRN (22:47)
[2024-01-30] MEDS: chlordiazePOXIDE HCL 10 MG CAPSULE PO SCH (05:28)
[2024-01-30 10:02] LABS: HEMATOCRIT 37.4 % (35.4-49); HEMOGLOBIN 12.2 GM/dL (11.7-16.9); MCH 29.6 pg (25.7-33.7); MCHC 32.7 g/dl (32.0-35.9); MEAN CELL VOLUME 90.4 fl (80-96); MEAN PLT VOLUME 10.8 fl (7.5-11.1); PLATELET COUNT 121 10^3/uL (134-434); RBC 4.14 M/mm3 (4.00-5.60); RDW 15.8 % (11.9-15.9); WHITE BLOOD COUNT 6.1 K/mm3 (4.0-10.0)
[2024-01-30 10:08] LABS: CHLORIDE 106 mmol/L (98-107); POTASSIUM 4.5 mmol/L (3.5-5.1); SODIUM 140 mmol/L (136-145)
[2024-01-30 10:12] LABS: CALCIUM 8.7 mg/dL (8.5-10.1)
[2024-01-30 10:13] LABS: ANION GAP 6 mmol/L (4-13); BLOOD UREA NITROGEN 12.9 mg/dL (7-18); CO2 29 mmol/L (21-32); GLUCOSE,RANDOM 110 mg/dL (74-106)
[2024-01-30 10:16] LABS: CREATININE 1.2 mg/dL (0.55-1.3); SGOT/AST 15 U/L (15-37); SGPT/ALT 17 U/L (13-61)
[2024-01-30 10:17] LABS: BILIRUBIN,TOTAL 0.4 mg/dL (0.2-1); TOT PROT 5.9 g/dl (6.4-8.2)
[2024-01-30 10:19] LABS: ALK PHOS 66 U/L (45-117)
[2024-01-30] MEDS: PRENATAL VITAMINS W/ FOLIC ACID TABLET (FP) PO SCH (10:55)
[2024-01-31] MEDS: chlordiazePOXIDE HCL 10 MG CAPSULE PO SCH (05:34)
[2024-01-31 16:41] VITALS: BP 126/63; PULSE 70; RESP 18; TEMP 97.3
[2024-02-01] MEDS ORDERED: chlordiazePOXIDE HCL 10 MG CAPSULE PO ONE (05:00)
== END 2024-01-31 20:10 | disposition other institution (70) | DRG 774 ==
LOC: YASAS 15:36 → Y6N 17:27
PROVIDERS: ADMIT Neuromusculoskeletal Medicine & OMM; ATTEND Neuromusculoskeletal Medicine & OMM
PROC: HZ2ZZZZ Detoxification Services for Substance Abuse Treatment (ICD-10-PCS; principal; 2024-01-29)
DX: F10.230 Alcohol dependence with withdrawal, uncomplicated (principal); F14.20 Cocaine dependence, uncomplicated; F12.20 Cannabis dependence, uncomplicated; F17.210 Nicotine dependence, cigarettes, uncomplicated; M17.0 Bilateral primary osteoarthritis of knee; Z86.19 Personal history of other infectious and parasitic diseases
CPT/HCPCS: 36415; 80053; 80305; 80307; 85027; 87811

== ENCOUNTER 2024-01-31 19:33 | Inpatient (IN) | payer OTHER ==
[2024-01-31] MEDS ORDERED: guaiFENesin 600 MG TABLET.ER (FP) PO PRN (21:00)
[2024-01-31] MEDS ORDERED: METHOCARBAMOL 500 MG TABLET PO PRN (21:00)
[2024-01-31] MEDS ORDERED: LOPERAMIDE HCL 2 MG CAPSULE PO PRN (21:00)
[2024-01-31] MEDS ORDERED: IBUPROFEN 400 MG TABLET (FP) PO PRN (21:00)
[2024-01-31] MEDS ORDERED: NALOXONE (NARCAN) HCL 4 MG/0.1 ML SPRAY NS PRN (21:00)
[2024-01-31] MEDS ORDERED: BENZONATATE 200 MG CAPSULE PO PRN (21:00)
[2024-01-31] MEDS ORDERED: MAGNESIUM HYDROX 2400MG/30ML ORAL SUSPENSION 30 ML CUP PO PRN (21:00)
[2024-01-31] MEDS ORDERED: NICOTINE POLACRILEX 2 MG GUM BUC PRN (21:00)
[2024-01-31] MEDS ORDERED: POLYETHYLENE GLYCOL (HEALTHYLAX) 3350 17 GM PACKET PO PRN (21:00)
[2024-01-31] MEDS ORDERED: NICOTINE POLACRILEX 2 MG LOZENGE BC PRN (21:00)
[2024-01-31] MEDS ORDERED: NALOXONE HCL 0.4 MG/ML VIAL IVPUSH PRN (21:00)
[2024-01-31] MEDS: THIAMINE 100 MG TABLET PO SCH (21:14)
[2024-01-31] MEDS: MELATONIN 5 MG TABLETS PO SCH (21:14)
[2024-02-01] MEDS: MAG HYDROX/AL HYDROX/SIMETH 30 ML UNIT-DOSE CUP PO PRN (05:39)
[2024-02-01] MEDS: PRENATAL VITAMINS W/ FOLIC ACID TABLET (FP) PO SCH (10:20)
[2024-02-06] MEDS ORDERED: PRENATAL VITAMINS W/ FOLIC ACID TABLET (FP) PO PRN (12:29)
[2024-02-07] MEDS: IBUPROFEN 600 MG TABLET (FP) PO PRN (09:12)
[2024-02-07] MEDS: P-EPHED 60MG/TRIPROLIDI 2.5MG TABLET PO PRN (21:47)
[2024-02-08] MEDS ORDERED: TUBERCULIN PPD 5 TU/0.1ML VIAL ID ONE (12:34)
[2024-02-09] MEDS: BENZOCAINE/MENTHOL (CHLORASEPTIC ) LOZENGE MM PRN (10:51)
[2024-02-09] MEDS ORDERED: guaiFENesin 600 MG TABLET.ER (FP) PO PRN (13:10)
[2024-02-09] MEDS ORDERED: BENZONATATE 200 MG CAPSULE PO PRN (13:10)
[2024-02-09] MEDS ORDERED: DICYCLOMINE HCL 10 MG CAPSULE PO PRN (13:10)
[2024-02-13 11:47] LABS: INR 0.87 (0.83-1.09); PROTHROMBIN TIME (PATIENT) 10.1 SEC (9.7-13.0)
[2024-02-16] MEDS: ACETAMINOPHEN 325 MG TABLET (FP) PO PRN (10:45)
[2024-02-16] MEDS: LACTULOSE 20 GM/30 ML UDC (FOR ORAL USE ONLY) PO PRN (21:11)
[2024-02-20 06:17] VITALS: RESP 18
[2024-02-21] MEDS: HYDROCORTISONE 0.5% TOPICAL CREAM 30 GM TUBE TP PRN (15:57)
[2024-02-27 06:38] VITALS: BP 130/81; PULSE 93; TEMP 96.8
== END 2024-02-27 08:20 | disposition home or self-care (01) | DRG 772 ==
LOC: YASAS 19:33 → Y3NR 19:35 → Y3E 02-01 10:56 → Y3W 02-10 18:46
PROVIDERS: ADMIT Allergy & Immunology; ATTEND Psychiatry & Neurology Pain Medicine
PROC: HZ42ZZZ Group Counseling for Substance Abuse Treatment, Cognitive-Behavioral (ICD-10-PCS; principal; 2024-01-31)
DX: F10.20 Alcohol dependence, uncomplicated (principal); F14.20 Cocaine dependence, uncomplicated; F12.20 Cannabis dependence, uncomplicated; F17.210 Nicotine dependence, cigarettes, uncomplicated; L23.9 Allergic contact dermatitis, unspecified cause; M17.0 Bilateral primary osteoarthritis of knee; R79.89 Other specified abnormal findings of blood chemistry; Z86.19 Personal history of other infectious and parasitic diseases
CPT/HCPCS: 0241U-QW; 36415; 82140; 82652; 83735; 85610; 87811

== ENCOUNTER 2024-03-31 08:21 | Inpatient (IN) | payer OTHER ==
[2024-03-31 09:22] VITALS: BMI 45.8
[2024-03-31] MEDS ORDERED: IBUPROFEN 400 MG TABLET (FP) PO PRN (10:08)
[2024-03-31] MEDS ORDERED: BENZONATATE 200 MG CAPSULE PO PRN (10:08)
[2024-03-31] MEDS ORDERED: BISMUTH SUBSALICYLATE 524 MG/30 ML PO PRN (10:08)
[2024-03-31] MEDS ORDERED: MAGNESIUM HYDROX 2400MG/30ML ORAL SUSPENSION 30 ML CUP PO PRN (10:08)
[2024-03-31] MEDS ORDERED: ACETAMINOPHEN 325 MG TABLET (FP) PO PRN (10:08)
[2024-03-31] MEDS ORDERED: guaiFENesin 600 MG TABLET.ER (FP) PO PRN (10:08)
[2024-03-31] MEDS ORDERED: ONDANSETRON *ODT* 4 MG TABLET SL PRN (10:08)
[2024-03-31] MEDS ORDERED: NICOTINE POLACRILEX 4 MG GUM BUC PRN (10:08)
[2024-03-31] MEDS ORDERED: LORazepam 1 MG TABLET PO PRN (10:08)
[2024-03-31] MEDS ORDERED: POLYETHYLENE GLYCOL (HEALTHYLAX) 3350 17 GM PACKET PO PRN (10:08)
[2024-03-31] MEDS ORDERED: NALOXONE (NARCAN) HCL 4 MG/0.1 ML SPRAY NS PRN (10:08)
[2024-03-31] MEDS ORDERED: BENZOCAINE/MENTHOL (CHLORASEPTIC ) LOZENGE MM PRN (10:08)
[2024-03-31] MEDS ORDERED: IBUPROFEN 600 MG TABLET (FP) PO PRN (10:08)
[2024-03-31] MEDS ORDERED: METHOCARBAMOL 500 MG TABLET PO PRN (10:08)
[2024-03-31] MEDS ORDERED: MAG HYDROX/AL HYDROX/SIMETH 30 ML UNIT-DOSE CUP PO PRN (10:08)
[2024-03-31] MEDS ORDERED: hydrOXYzine PAMOATE 25 MG CAPSULE (FP) PO PRN (10:08)
[2024-03-31] MEDS ORDERED: NICOTINE POLACRILEX 4 MG LOZENGE BC PRN (10:08)
[2024-03-31] MEDS ORDERED: LOPERAMIDE HCL 2 MG CAPSULE PO PRN (10:08)
[2024-03-31] MEDS ORDERED: DICYCLOMINE HCL 10 MG CAPSULE PO PRN (10:08)
[2024-03-31] MEDS: LORazepam 2 MG TABLET PO SCH (17:40)
[2024-03-31] MEDS: MELATONIN 5 MG TABLETS PO SCH (22:30)
[2024-03-31] MEDS: THIAMINE 100 MG TABLET PO SCH (22:30)
[2024-04-01 10:26] LABS: CHLORIDE 108 mmol/L (98-107); POTASSIUM 4.9 mmol/L (3.5-5.1); SODIUM 141 mmol/L (136-145)
[2024-04-01 10:29] LABS: HEMATOCRIT 40.2 % (35.4-49); HEMOGLOBIN 13.1 GM/dL (11.7-16.9); MCH 29.9 pg (25.7-33.7); MCHC 32.5 g/dl (32.0-35.9); MEAN CELL VOLUME 92.2 fl (80-96); MEAN PLT VOLUME 10.7 fl (7.5-11.1); PLATELET COUNT 158 10^3/uL (134-434); RBC 4.36 M/mm3 (4.00-5.60); RDW 16.9 % (11.9-15.9); WHITE BLOOD COUNT 6.1 K/mm3 (4.0-10.0)
[2024-04-01 10:39] LABS: CALCIUM 8.7 mg/dL (8.5-10.1)
[2024-04-01 10:40] LABS: ALBUMIN 3.4 g/dl (3.4-5.0); ANION GAP 3 mmol/L (4-13); BLOOD UREA NITROGEN 13.5 mg/dL (7-18); CO2 30 mmol/L (21-32); GLUCOSE,RANDOM 117 mg/dL (74-106)
[2024-04-01] MEDS: PRENATAL VITAMINS W/ FOLIC ACID TABLET (FP) PO SCH (10:40)
[2024-04-01 10:43] LABS: SGOT/AST 11 U/L (15-37); SGPT/ALT 22 U/L (13-61)
[2024-04-01 10:44] LABS: BILIRUBIN,TOTAL 0.2 mg/dL (0.2-1); TOT PROT 6.8 g/dl (6.4-8.2)
[2024-04-01 10:46] LABS: ALK PHOS 61 U/L (45-117)
[2024-04-02] MEDS: LORazepam 1 MG TABLET PO SCH (05:47)
[2024-04-03] MEDS ORDERED: LORazepam 0.5 MG TABLET PO PRN
[2024-04-03] MEDS: LORazepam 0.5 MG TABLET PO SCH (05:28)
[2024-04-04] MEDS: LORazepam 0.5 MG TABLET PO ONE (05:44)
[2024-04-04 08:54] VITALS: RESP 20
[2024-04-04 12:50] VITALS: BP 146/109; PULSE 95; TEMP 97.6
[2024-04-04] MEDS: NALOXONE (NYS OPIOID OVERDOSE PROGRAM) 4 MG/0.1 ML SPRAY NS PRN (14:00)
== END 2024-04-04 14:12 | disposition other institution (70) | DRG 774 ==
LOC: YASAS 08:21 → Y6N 10:42
PROVIDERS: ADMIT Surgery; ATTEND Surgery
PROC: HZ2ZZZZ Detoxification Services for Substance Abuse Treatment (ICD-10-PCS; principal; 2024-03-31)
DX: F10.230 Alcohol dependence with withdrawal, uncomplicated (principal); F14.20 Cocaine dependence, uncomplicated; F12.20 Cannabis dependence, uncomplicated; F17.210 Nicotine dependence, cigarettes, uncomplicated; M17.0 Bilateral primary osteoarthritis of knee; M54.50 Low back pain, unspecified; G89.29 Other chronic pain
CPT/HCPCS: 36415; 80053; 80305; 80307; 83036; 85027; 86593; 86780; 87811; 93005; 93010

== ENCOUNTER 2024-04-04 14:22 | Inpatient (IN) | payer OTHER ==
[2024-04-04] MEDS ORDERED: BENZONATATE 200 MG CAPSULE PO PRN (15:32)
[2024-04-04] MEDS ORDERED: guaiFENesin 600 MG TABLET.ER (FP) PO PRN (15:32)
[2024-04-04] MEDS ORDERED: ACETAMINOPHEN 325 MG TABLET (FP) PO PRN (15:32)
[2024-04-04] MEDS ORDERED: NALOXONE (NYS OPIOID OVERDOSE PROGRAM) 4 MG/0.1 ML SPRAY NS PRN (15:32)
[2024-04-04] MEDS ORDERED: IBUPROFEN 400 MG TABLET (FP) PO PRN (15:32)
[2024-04-04] MEDS ORDERED: NALOXONE (NARCAN) HCL 4 MG/0.1 ML SPRAY NS PRN (15:32)
[2024-04-04] MEDS ORDERED: IBUPROFEN 600 MG TABLET (FP) PO PRN (15:32)
[2024-04-04] MEDS ORDERED: POLYETHYLENE GLYCOL (HEALTHYLAX) 3350 17 GM PACKET PO PRN (15:32)
[2024-04-04] MEDS ORDERED: BENZOCAINE/MENTHOL (CHLORASEPTIC ) LOZENGE MM PRN (15:32)
[2024-04-04] MEDS ORDERED: LOPERAMIDE HCL 2 MG CAPSULE PO PRN (15:32)
[2024-04-04] MEDS ORDERED: MAGNESIUM HYDROX 2400MG/30ML ORAL SUSPENSION 30 ML CUP PO PRN (15:32)
[2024-04-04] MEDS ORDERED: MAG HYDROX/AL HYDROX/SIMETH 30 ML UNIT-DOSE CUP PO PRN (15:32)
[2024-04-04] MEDS ORDERED: hydrOXYzine PAMOATE 25 MG CAPSULE (FP) PO PRN (15:32)
[2024-04-04] MEDS ORDERED: NICOTINE POLACRILEX 4 MG GUM BUC PRN (15:37)
[2024-04-04] MEDS: PRENATAL VITAMINS W/ FOLIC ACID TABLET (FP) PO SCH (15:59)
[2024-04-04] MEDS: NICOTINE 7 MG/24 HOURS TOPICAL PATCH TD SCH (15:59)
[2024-04-04] MEDS: THIAMINE 100 MG TABLET PO SCH (21:22)
[2024-04-04] MEDS: MELATONIN 5 MG TABLETS PO SCH (21:22)
[2024-04-06] MEDS ORDERED: LACTULOSE 20 GM/30 ML UDC (FOR ORAL USE ONLY) PO PRN (15:18)
[2024-04-06] MEDS: LACTULOSE 20 GM/30 ML UDC (FOR ORAL USE ONLY) PO SCH (16:45)
[2024-04-06] MEDS: BACLOFEN 10 MG TABLET (FP) PO SCH (16:45)
[2024-04-07 14:43] VITALS: RESP 18
[2024-04-11 06:38] VITALS: TEMP 96.6
[2024-04-11] MEDS: NALOXONE (NYS OPIOID OVERDOSE PROGRAM) 4 MG/0.1 ML SPRAY NS SCH (09:57)
[2024-04-11 11:05] VITALS: BP 128/73; PULSE 83
== END 2024-04-11 10:07 | disposition home or self-care (01) | DRG 772 ==
LOC: YASAS 14:22 → Y5N 14:24
PROVIDERS: ADMIT Psychiatry & Neurology Pain Medicine; ATTEND Psychiatry & Neurology Pain Medicine
PROC: HZ42ZZZ Group Counseling for Substance Abuse Treatment, Cognitive-Behavioral (ICD-10-PCS; principal; 2024-04-04)
DX: F10.20 Alcohol dependence, uncomplicated (principal); F14.20 Cocaine dependence, uncomplicated; F12.20 Cannabis dependence, uncomplicated; F17.210 Nicotine dependence, cigarettes, uncomplicated; E72.20 Disorder of urea cycle metabolism, unspecified; M54.50 Low back pain, unspecified; G89.29 Other chronic pain; R79.89 Other specified abnormal findings of blood chemistry; Z86.19 Personal history of other infectious and parasitic diseases
CPT/HCPCS: 82140; J0475

== ENCOUNTER 2024-07-05 11:08 | Inpatient (IN) | payer OTHER ==
[2024-07-05] MEDS ORDERED: hydrOXYzine PAMOATE 25 MG CAPSULE (FP) PO PRN (12:03)
[2024-07-05] MEDS ORDERED: METHOCARBAMOL 500 MG TABLET PO PRN (12:03)
[2024-07-05] MEDS ORDERED: IBUPROFEN 600 MG TABLET (FP) PO PRN (12:03)
[2024-07-05] MEDS ORDERED: BENZONATATE 200 MG CAPSULE PO PRN (12:03)
[2024-07-05] MEDS ORDERED: NALOXONE (NARCAN) HCL 4 MG/0.1 ML SPRAY NS PRN (12:03)
[2024-07-05] MEDS ORDERED: LOPERAMIDE HCL 2 MG CAPSULE PO PRN (12:03)
[2024-07-05] MEDS ORDERED: MAGNESIUM HYDROX 2400MG/30ML ORAL SUSPENSION 30 ML CUP PO PRN (12:03)
[2024-07-05] MEDS ORDERED: MAG HYDROX/AL HYDROX/SIMETH 30 ML UNIT-DOSE CUP PO PRN (12:03)
[2024-07-05] MEDS ORDERED: BENZOCAINE/MENTHOL (CHLORASEPTIC ) LOZENGE MM PRN (12:03)
[2024-07-05] MEDS ORDERED: IBUPROFEN 400 MG TABLET (FP) PO PRN (12:03)
[2024-07-05] MEDS ORDERED: guaiFENesin 600 MG TABLET.ER (FP) PO PRN (12:03)
[2024-07-05] MEDS ORDERED: ACETAMINOPHEN 325 MG TABLET (FP) PO PRN (12:03)
[2024-07-05] MEDS ORDERED: POLYETHYLENE GLYCOL (HEALTHYLAX) 3350 17 GM PACKET PO PRN (12:03)
[2024-07-05] MEDS ORDERED: NALOXONE HCL 0.4 MG/ML VIAL IVPUSH PRN (12:03)
[2024-07-05] MEDS: BACLOFEN 10 MG TABLET (FP) PO SCH (21:46)
[2024-07-05] MEDS: MELATONIN 5 MG TABLETS PO SCH (21:46)
[2024-07-05] MEDS: THIAMINE 100 MG TABLET PO SCH (21:46)
[2024-07-06] MEDS: PRENATAL VITAMINS W/ FOLIC ACID TABLET (FP) PO SCH (10:07)
[2024-07-06] MEDS ORDERED: PRENATAL VITAMINS W/ FOLIC ACID TABLET (FP) PO PRN (12:49)
[2024-07-06] MEDS ORDERED: BACLOFEN 10 MG TABLET (FP) PO PRN (12:49)
[2024-07-24 06:38] VITALS: RESP 16
[2024-07-27 06:57] VITALS: BP 109/76; PULSE 75; TEMP 96.9
== END 2024-07-27 08:38 | disposition home or self-care (01) | DRG 772 ==
LOC: YASAS 11:08 → Y3E 11:09 → Y3NR 07-22 11:05 → Y3E 07-22 11:09
PROVIDERS: ADMIT Psychiatry & Neurology Pain Medicine; ATTEND Psychiatry & Neurology Pain Medicine
PROC: HZ42ZZZ Group Counseling for Substance Abuse Treatment, Cognitive-Behavioral (ICD-10-PCS; principal; 2024-07-05)
DX: F10.20 Alcohol dependence, uncomplicated (principal); F14.20 Cocaine dependence, uncomplicated; F17.210 Nicotine dependence, cigarettes, uncomplicated; G47.30 Sleep apnea, unspecified; M16.11 Unilateral primary osteoarthritis, right hip; M17.0 Bilateral primary osteoarthritis of knee

== ENCOUNTER 2025-01-04 16:59 | Inpatient (IN) | payer OTHER ==
[2025-01-04 17:31] VITALS: BMI 47.2
[2025-01-04] MEDS ORDERED: NICOTINE POLACRILEX 2 MG LOZENGE BC PRN (19:12)
[2025-01-04] MEDS ORDERED: BENZONATATE 200 MG CAPSULE PO PRN (19:12)
[2025-01-04] MEDS ORDERED: MAGNESIUM HYDROX 2400MG/30ML ORAL SUSPENSION 30 ML CUP PO PRN (19:12)
[2025-01-04] MEDS ORDERED: NICOTINE POLACRILEX 2 MG GUM BUC PRN (19:12)
[2025-01-04] MEDS ORDERED: hydrOXYzine PAMOATE 25 MG CAPSULE (FP) PO PRN (19:12)
[2025-01-04] MEDS ORDERED: IBUPROFEN 400 MG TABLET (FP) PO PRN (19:12)
[2025-01-04] MEDS ORDERED: NALOXONE (NARCAN) HCL 4 MG/0.1 ML SPRAY NS PRN (19:12)
[2025-01-04] MEDS ORDERED: POLYETHYLENE GLYCOL (HEALTHYLAX) 3350 17 GM PACKET PO PRN (19:12)
[2025-01-04] MEDS ORDERED: LOPERAMIDE HCL 2 MG CAPSULE PO PRN (19:12)
[2025-01-04] MEDS ORDERED: guaiFENesin 600 MG TABLET.ER (FP) PO PRN (19:12)
[2025-01-04] MEDS ORDERED: MAG HYDROX/AL HYDROX/SIMETH 30 ML UNIT-DOSE CUP PO PRN (19:12)
[2025-01-04] MEDS ORDERED: ACETAMINOPHEN 325 MG TABLET (FP) PO PRN (19:12)
[2025-01-04] MEDS ORDERED: ONDANSETRON *ODT* 4 MG TABLET SL PRN (19:12)
[2025-01-04] MEDS ORDERED: DICYCLOMINE HCL 10 MG CAPSULE PO PRN (19:12)
[2025-01-04] MEDS ORDERED: BENZOCAINE/MENTHOL (CHLORASEPTIC ) LOZENGE MM PRN (19:12)
[2025-01-04] MEDS: THIAMINE 100 MG TABLET PO SCH (21:54)
[2025-01-04] MEDS: MELATONIN 5 MG TABLETS PO SCH (21:54)
[2025-01-04] MEDS ORDERED: VITAMINS A AND D TOPICAL OINTMENT TP PRN (22:24)
[2025-01-05 10:18] LABS: MCHC 31.5 g/dl (32.3-36.5); MEAN CELL VOLUME 90.3 fl (79.0-92.2); MEAN PLT VOLUME 13.8 fl (9.4-12.4); RDW 15.1 % (12.2-16.4)
[2025-01-05] MEDS: PRENATAL VITAMINS W/ FOLIC ACID TABLET (FP) PO SCH (10:19)
[2025-01-05 10:41] LABS: GLUCOSE,RANDOM 141 mg/dL (74-106)
[2025-01-05 10:43] LABS: CO2 27 mmol/L (21-32)
[2025-01-05 10:44] LABS: SGOT/AST 33 U/L (15-37)
[2025-01-05 10:46] LABS: CREATININE 1.2 mg/dL (0.55-1.3); SGPT/ALT 43 U/L (13-61)
[2025-01-05 10:48] LABS: TOT PROT 7.2 g/dl (6.4-8.2)
[2025-01-05 10:49] LABS: ALK PHOS 71 U/L (45-117)
[2025-01-06] MEDS: METHOCARBAMOL 500 MG TABLET PO PRN (17:27)
[2025-01-06] MEDS: IBUPROFEN 600 MG TABLET (FP) PO PRN (17:27)
[2025-01-07] MEDS: BISMUTH SUBSALICYLATE 524 MG/30 ML PO PRN (05:54)
[2025-01-07 07:04] VITALS: RESP 18
[2025-01-07 09:03] VITALS: BP 103/70; PULSE 90; TEMP 97.6
== END 2025-01-07 12:25 | disposition other institution (70) | DRG 774 ==
LOC: YASAS 16:59 → Y6N 20:11
PROVIDERS: ADMIT Allergy & Immunology; ATTEND Allergy & Immunology
PROC: HZ2ZZZZ Detoxification Services for Substance Abuse Treatment (ICD-10-PCS; principal; 2025-01-04)
DX: F10.230 Alcohol dependence with withdrawal, uncomplicated (principal); G47.33 Obstructive sleep apnea (adult) (pediatric); E66.01 Morbid (severe) obesity due to excess calories; Z68.41 Body mass index [BMI] 40.0-44.9, adult; M17.0 Bilateral primary osteoarthritis of knee; F17.210 Nicotine dependence, cigarettes, uncomplicated; F14.20 Cocaine dependence, uncomplicated
CPT/HCPCS: 36415; 80053; 80307; 85027; 86593; 86780

== ENCOUNTER 2025-01-07 12:37 | Inpatient (IN) | payer OTHER ==
[2025-01-07] MEDS ORDERED: BENZOCAINE/MENTHOL (CHLORASEPTIC ) LOZENGE MM PRN (13:47)
[2025-01-07] MEDS ORDERED: NALOXONE HCL 0.4 MG/ML VIAL IVPUSH PRN (13:47)
[2025-01-07] MEDS ORDERED: NALOXONE (NARCAN) HCL 4 MG/0.1 ML SPRAY NS PRN (13:47)
[2025-01-07] MEDS ORDERED: LOPERAMIDE HCL 2 MG CAPSULE PO PRN (13:47)
[2025-01-07] MEDS ORDERED: POLYETHYLENE GLYCOL (HEALTHYLAX) 3350 17 GM PACKET PO PRN (13:47)
[2025-01-07] MEDS ORDERED: IBUPROFEN 600 MG TABLET (FP) PO PRN (13:47)
[2025-01-07] MEDS ORDERED: MAG HYDROX/AL HYDROX/SIMETH 30 ML UNIT-DOSE CUP PO PRN (13:47)
[2025-01-07] MEDS ORDERED: IBUPROFEN 400 MG TABLET (FP) PO PRN (13:47)
[2025-01-07] MEDS ORDERED: NICOTINE POLACRILEX 4 MG GUM BUC PRN (13:47)
[2025-01-07] MEDS ORDERED: NICOTINE POLACRILEX 4 MG LOZENGE BC PRN (13:47)
[2025-01-07] MEDS ORDERED: hydrOXYzine PAMOATE 25 MG CAPSULE (FP) PO PRN (13:47)
[2025-01-07] MEDS ORDERED: BENZONATATE 200 MG CAPSULE PO PRN (13:47)
[2025-01-07] MEDS ORDERED: guaiFENesin 600 MG TABLET.ER (FP) PO PRN (13:47)
[2025-01-07] MEDS ORDERED: ACETAMINOPHEN 325 MG TABLET (FP) PO PRN (13:47)
[2025-01-07] MEDS ORDERED: MAGNESIUM HYDROX 2400MG/30ML ORAL SUSPENSION 30 ML CUP PO PRN (13:47)
[2025-01-07] MEDS: LACTULOSE 20 GM/30 ML UDC (FOR ORAL USE ONLY) PO SCH (14:58)
[2025-01-07] MEDS: THIAMINE 100 MG TABLET PO SCH (21:12)
[2025-01-07] MEDS: MELATONIN 5 MG TABLETS PO SCH (21:12)
[2025-01-08] MEDS: NICOTINE 14 MG/24 HOURS TOPICAL PATCH TD SCH (10:19)
[2025-01-08] MEDS: PRENATAL VITAMINS W/ FOLIC ACID TABLET (FP) PO SCH (10:19)
[2025-01-12 05:50] VITALS: RESP 18
[2025-01-14 05:33] VITALS: TEMP 97.7
[2025-01-14 09:45] VITALS: BP 121/54; PULSE 54
== END 2025-01-14 10:25 | disposition home or self-care (01) | DRG 772 ==
LOC: YASAS 12:37 → Y3W 12:38
PROVIDERS: ADMIT Psychiatry & Neurology Pain Medicine; ATTEND Psychiatry & Neurology Pain Medicine
PROC: HZ42ZZZ Group Counseling for Substance Abuse Treatment, Cognitive-Behavioral (ICD-10-PCS; principal; 2025-01-07)
DX: F10.20 Alcohol dependence, uncomplicated (principal); F14.20 Cocaine dependence, uncomplicated; F17.210 Nicotine dependence, cigarettes, uncomplicated; G47.33 Obstructive sleep apnea (adult) (pediatric); M17.0 Bilateral primary osteoarthritis of knee; M16.11 Unilateral primary osteoarthritis, right hip; M54.50 Low back pain, unspecified; G89.29 Other chronic pain; E66.01 Morbid (severe) obesity due to excess calories; Z68.43 Body mass index [BMI] 50.0-59.9, adult
CPT/HCPCS: 82140